=== PATIENT | female | born 1945 | race Caucasian/White ===

== ENCOUNTER → 2019-09-13 09:37 | Outpatient (BNVA) | payer MEDICARE, OTHER, SELFPAY | PROVIDERS: Family Provider Nurse Practitioner; PCP Nurse Practitioner; Visit Provider Nurse Practitioner | DX: E11.65 Type 2 diabetes mellitus with hyperglycemia (principal) | CPT/HCPCS: 80053; 80061; 81000; 83036; 85025 ==

== ENCOUNTER → 2020-02-10 11:19 | Outpatient (BNVA) | payer MEDICARE, OTHER, SELFPAY | PROVIDERS: Family Provider Nurse Practitioner; PCP Nurse Practitioner; Visit Provider Nurse Practitioner Family | DX: N30.00 Acute cystitis without hematuria (principal) | CPT/HCPCS: 81000 ==

== ENCOUNTER → 2020-02-17 10:48 | Outpatient (BNVA) | payer MEDICARE, OTHER, SELFPAY | PROVIDERS: Family Provider Nurse Practitioner; PCP Nurse Practitioner; Visit Provider Nurse Practitioner | DX: E11.65 Type 2 diabetes mellitus with hyperglycemia (principal) | CPT/HCPCS: 80053; 80061; 83036; 84443 ==

== ENCOUNTER → 2020-08-07 14:53 | Outpatient (BNVA) | payer MEDICARE, OTHER, SELFPAY | PROVIDERS: Family Provider Nurse Practitioner; PCP Nurse Practitioner; Visit Provider Nurse Practitioner | DX: E11.65 Type 2 diabetes mellitus with hyperglycemia (principal) | CPT/HCPCS: 81000 ==

== ENCOUNTER → 2020-08-17 10:01 | Outpatient (BNVA) | payer MEDICARE, OTHER, SELFPAY | PROVIDERS: Family Provider Nurse Practitioner; PCP Nurse Practitioner; Visit Provider Nurse Practitioner | DX: I10 Essential (primary) hypertension (principal); E11.65 Type 2 diabetes mellitus with hyperglycemia; R00.0 Tachycardia, unspecified | CPT/HCPCS: 80053; 80061; 83036; 84443 ==

== ENCOUNTER → 2020-08-18 10:05 | Outpatient (BNVA) | payer MEDICARE, OTHER, SELFPAY | PROVIDERS: Family Provider Nurse Practitioner; PCP Nurse Practitioner; Visit Provider Nurse Practitioner | DX: E11.65 Type 2 diabetes mellitus with hyperglycemia (principal) | CPT/HCPCS: 82043 ==

== ENCOUNTER → 2020-12-11 11:36 | Outpatient (BNVA) | payer MEDICARE, OTHER, SELFPAY | PROVIDERS: Family Provider Nurse Practitioner; PCP Nurse Practitioner; Visit Provider Nurse Practitioner | DX: E11.65 Type 2 diabetes mellitus with hyperglycemia (principal); J45.909 Unspecified asthma, uncomplicated; K21.9 Gastro-esophageal reflux disease without esophagitis | CPT/HCPCS: 80053; 80061; 82043; 83036 ==

== ENCOUNTER 2021-02-04 08:55 | Outpatient (CLI) | payer MEDICARE, OTHER, SELFPAY ==
[2021-02-04 09:51] VITALS: BMI 35.2
--- NOTE | 2021-02-04 09:56 | NMCV_ITS ---
NM curtis perf SPECT r/s* [id number] Haily Sam Age: 75 Gender: F : 1945 Exam Date: 02/04/2021 11:05 Ordering Phys: Arnold Wagner MD ([email or web address]) Technologist: CYNTHIA Pryor Exam Location: [facility] [place] Indications: SHORTNESS OF BREATH STRESS TEST Please [facility] separate [facility] for [facility] IMAGE PROTOCOL Rest/Stress 1 Lexiscan Day Radiopharmaceutical Dose (mCi) Administration Site Administered by Rest: Tc-99m 10.8 IV CYNTHIA Contreras Sestamibi Stress:Tc-99m 32.8 IV CYNTHIA Contreras Sestamibi Rest: 04-Feb-2021 60 Discovery 630 Stress: 04-Feb-2021 30 Discovery 630 0.4mg Lexiscan. Supine position only as patient was unable to lay prone. SPECT RESULTS Technical Quality: Excellent Raw Data Analysis: Normal Image Corrections: No attenuation or motion correction applied Summed Stress Score: 2 Summed Rest Score: 2 Summed Difference Score: 1 PERFUSION FINDINGS SPECT images demonstrate homogeneous tracer distribution throughout the myocardium. FUNCTIONAL RESULTS (calculated via Gated SPECT) Stress Image LV EF (%): 69 Stress EDV (mL):68 TID: 0.83 Stress ESV (mL):21 Rest Image LV EF (%): 65 FUNCTIONAL FINDINGS: There is normal left ventricular systolic function. IMPRESSIONS Myocardial perfusion imaging is normal. EKG segment will be documented separately. Arnold Wagner MD (Electronically Signed) Final Date: 04 February 2021 18:46 S
--- NOTE | 2021-02-04 09:56 | ECG_ITS ---
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 The perfusion scan will be documented separately. DATA: Baseline heart rate was 79 beats per minute. Baseline blood pressure was 165/91 millimeters of mercury. Target heart rate was 146. Maximum heart rate achieved was 120. which was 82 % of the predicted target heart rate. Maximum blood pressure was 179/109 millimeters of mercury. The reason for ending the test was completion of the protocol. The patient did not experience any symptoms. ELECTROCARDIOGRAM: BASELINE: Sinus rhythm. Normal axis. Incomplete right bundle branch EXERCISE: After Lexiscan injection, no ST-T changes suggestive of ischemic noted. No arrhythmia noted. CONCLUSION: Please note due to baseline abnormality of the EKG specificity and sensitivity of the EKG portion of LexiScan MIBI stress test will be low 1. EKG not suggestive of ischemia 2. Lexiscan injection unremarkable. 3. Perfusion scan will be documented separately. Electronically Signed On 02-04-2021 21:18:29 CDT by ARNOLD WAGNER [id number]
[2021-02-04] MEDS: regadenoson 0.4 Mg/5 ml Syringe IVP (12:13)
[2021-02-04 12:41] VITALS: BP 168/103; PULSE 63
== END 2021-02-04 08:56 | disposition home or self-care (01) ==
LOC: CDL 08:57
PROVIDERS: PCP Nurse Practitioner; Visit Provider Internal Medicine Cardiovascular Disease
DX: R07.9 Chest pain, unspecified (principal); R06.02 Shortness of breath
CPT/HCPCS: 78452; 93017; A9500; J2785

== ENCOUNTER 2021-03-26 08:51 | Outpatient (CLI) | payer MEDICARE, OTHER, SELFPAY ==
--- NOTE | 2021-03-26 09:00 | MM_ITS ---
WS: [id number] BILATERAL DIGITAL SCREENING MAMMOGRAPHY WITH CAD CLINICAL INFORMATION: Z12.31 - Encounter for screening mammogram for malignant ... HISTORY: Screening mammogram. No current complaints. COMPARISON: TECHNIQUE: Bilateral CC and MLO views. FINDINGS: The breasts are composed of heterogeneous fibroglandular density tissue, which can limit the detectio n of small underlying mass lesions. No suspicious mass, asymmetry, calcifications, or architectural d istortion. No evidence of malignancy. Stable punctate and lucent centered calcifications. Coarse clus tered calcifications upper outer right breast have slightly progressed MM/[place] [id number] IMPRESSION: BI-RADS: 2-Benign FOLLOW UP: 1 Year Follow-up Recommend return to annual screening mammography.
== END 2021-03-26 08:52 | disposition home or self-care (01) ==
LOC: RADSHAW 08:57
PROVIDERS: PCP Nurse Practitioner; Visit Provider Nurse Practitioner Family
DX: Z12.31 Encounter for screening mammogram for malignant neoplasm of breast (principal)
CPT/HCPCS: 77067

== ENCOUNTER → 2021-04-19 12:02 | Outpatient (BNVA) | payer MEDICARE, OTHER, SELFPAY | PROVIDERS: PCP Nurse Practitioner; Visit Provider Nurse Practitioner | DX: E11.65 Type 2 diabetes mellitus with hyperglycemia (principal); R19.7 Diarrhea, unspecified | CPT/HCPCS: 80053; 80061; 81000; 83036; 85025; 87493; 87506 ==

== ENCOUNTER → 2021-05-03 09:32 | Outpatient (BNVA) | payer MEDICARE, OTHER, SELFPAY | PROVIDERS: PCP Nurse Practitioner; Visit Provider Nurse Practitioner | DX: D64.9 Anemia, unspecified (principal) | CPT/HCPCS: 85025 ==

== ENCOUNTER → 2021-05-12 13:24 | Outpatient (BNVA) | payer MEDICARE, OTHER, SELFPAY | PROVIDERS: PCP Nurse Practitioner; Visit Provider Nurse Practitioner | DX: D64.9 Anemia, unspecified (principal); E61.1 Iron deficiency | CPT/HCPCS: 82607; 82746; 83550 ==

== ENCOUNTER 2021-07-07 11:13 | Outpatient (CLI) | payer MEDICARE, OTHER, SELFPAY ==
--- NOTE | 2021-07-07 | CT_ITS ---
WS: [id number] CT ABDOMEN AND PELVIS NONCONTRAST HISTORY: RENAL CYST TECHNIQUE: Imaging performed through the abdomen and pelvis. Coronal and sagittal reformats are submi tted. All CT scans at [facility] use at least one of these dose optimization techniques: auto mated exposure control; mA and/or kV adjustment per patient size (includes targeted exams where dose is matched to clinical indication); or iterative reconstruction. DLP: 1056.98 mGycm COMPARISON: 04/15/2019 Lower thorax: Lung bases are clear. Heart is normal size. No effusion. Small hiatal hernia. Liver: Normal size liver. No mass or bile duct dilatation. Gallbladder: Normal gallbladder. Pancreas: Normal size and attenuation. Normal pancreatic duct. No pancreatitis or mass. Spleen: Normal. Adrenal glands: Normal. No mass. Right kidney: Normal size RIGHT kidney. The exophytic cyst noted on the prior examination from the lo wer pole is no longer present. This study is a noncontrast examination therefore subtle enhancing ma sses would not be apparent. The contour of the kidney appears normal. No stone or obstruction. Left kidney: Normal size kidney with no mass or hydronephrosis. Aorta: Normal abdominal aorta, no aneurysm or atherosclerosis. No free fluid, intraperitoneal air or significant lymphadenopathy. GI tract: No GI tract obstruction. There are numerous diverticula in the sigmoid colon without acute diverticulitis. Prior appendectomy. No acute inflammatory process. Abdominal wall: Very small umbilical hernia contains fat only. Pelvis: Small caliber uterus as expected. No adnexal masses. No free fluid or adenopathy. Normal urin brooke bladder. Osseous structures: Unremarkable. CT/CT abdomen pelvis wo con [id number] IMPRESSION: 1. Previously described RIGHT renal cyst is no longer present. 2. No renal obstruction. No renal calcifications. 3. Prior appendectomy. 4. Sigmoid diverticulosis without diverticulitis.
== END 2021-07-07 11:14 | disposition home or self-care (01) ==
PROVIDERS: PCP Nurse Practitioner; Visit Provider Nurse Practitioner
DX: N28.1 Cyst of kidney, acquired (principal); Q42.8 Congenital absence, atresia and stenosis of other parts of large intestine; K57.30 Diverticulosis of large intestine without perforation or abscess without bleeding
CPT/HCPCS: 74176

== ENCOUNTER 2021-09-10 12:16 | Outpatient (CLI) | payer MEDICARE, OTHER, SELFPAY ==
--- NOTE | 2021-09-10 12:30 | USCV_ITS ---
Haily Sam Age: 76 Gender: F : 1945 Exam Date: 09/10/2021 12:44 Ordering Phys: Eunice Sinha Technologist: Exam Location: [facility] [place] Indication: SYNCOPE Risk Factors: Previous Vascular Surgery: Right Brachial BP: / Left Brachial BP: / Right Left Velocity (cm/s) Spectral Plaque Velocity (cm/s) Spectral Plaque Syst/Diast Broadening Syst/Diast Broadening 55.90/ 16.30 Prox CCA 57.20 / 11.80 69.90/ 15.50 Mid CCA 67.70 / 17.70 63.70/ 14.80 Distal CCA 53.00 / 10.30 60.15/ 13.50 Prox ICA 82.00 / 19.70 56.60/ 13.80 Mid ICA 71.40 / 19.60 48.25/ 13.55 Distal ICA 81.60 / 14.90 89.30 ECA 67.95 0.90 ICA/CCA 1.21 Antegrade Vertebral Antegrade 28.00/ 6.60 cm/s 35.90/ 9.40 cm/s Tri Subclavian Tri 84.00 91.40 FINDINGS Intimal thickening was noted in the common carotid artery and at the bifurcations bilaterally No unstable plaques or stenotic lesions Normal Doppler flow velocities and ratios Antegrade flow in the vertebral arteries bilaterally Normal Doppler velocities in the external carotid, vertebral and subclavian arteries well CONCLUSIONS Intimal thickening in the common carotid artery and the bifurcations bilaterally with no evidence of any significant stenosis. No unstable plaques or significant lesions. Dr Candis Louise MD [facility] (Electronically Signed) Final Date: 10 September 2021 18:57 S
== END 2021-09-10 12:17 | disposition home or self-care (01) ==
LOC: RAD 12:23
PROVIDERS: PCP Nurse Practitioner; Visit Provider Nurse Practitioner
DX: G45.9 Transient cerebral ischemic attack, unspecified (principal); R55 Syncope and collapse
CPT/HCPCS: 93880

== ENCOUNTER → 2021-10-13 08:40 | Outpatient (BNVA) | payer MEDICARE, OTHER, SELFPAY | PROVIDERS: PCP Nurse Practitioner; Visit Provider Nurse Practitioner | DX: E11.65 Type 2 diabetes mellitus with hyperglycemia (principal); I10 Essential (primary) hypertension | CPT/HCPCS: 80053; 80061; 83036; 85025 ==

== ENCOUNTER → 2022-01-18 11:07 | Outpatient (BNVA) | payer MEDICARE, OTHER, SELFPAY | PROVIDERS: PCP Nurse Practitioner; Visit Provider Nurse Practitioner Family | DX: M79.642 Pain in left hand (principal); M79.89 Other specified soft tissue disorders | CPT/HCPCS: 73130 ==

== ENCOUNTER 2022-01-19 14:06 | Emergency (ER) | payer MEDICARE, OTHER, SELFPAY ==
--- NOTE | 2022-01-19 14:18 | ED_ITS ---
HPI - General Adult General: Chief complaint: Abdominal Pain Stated complaint: ABD PAIN Time Seen by Provider: 01/19/22 14:09 History of Present Illness: Patient is a 76-year-old female history of prior appendectomy, renal colic, diverticulosis, tubal ligation presenting to the emergency room with sudden onset of lower abdominal pain has been persistent since 12:00. Patient has been she had 3 bites of sandwiches and began having significant lower abdominal pain with radiation from the left side to the right. Patient had 1 episode of diarrhea. Denies any melena hematochezia. Patient denies any nausea/vomiting, fever/chills. No complaints of chest pain, shortness breath, cough, or any sore throat. Patient denies any urinary complaints, vaginal the bleeding or new vaginal discharge. Onset:12pm Duration:2 hrs ago Location:home Severity:moderate Associated symptoms: Deny chest pain, dyspnea, nausea, rash, palpitations or vomiting Review of Systems Const: Denies: fever(s) or chills Eyes: Denies: change in vision ENMT: Denies: mouth pain Card: Denies: chest pain or palpitations Resp: Denies: dyspnea or non-productive cough GI: Reports: abdominal pain and diarrhea; Denies: nausea or vomiting : Denies: dysuria Musc: Denies: extremity pain Skin/Breast: Denies: rash or new lesions Neuro: Denies: weakness in extremities Psych: Reports: other (Normal mood) Moncho/Lymph: Denies: easy bruising PFSH ED PFSH: Medical History Allergy to alpha-gal Asthma Chronic constipation Controlled diabetes mellitus with hyperglycemia, without long-term current use of insulin Diverticulosis Essential hypertension Gastric reflux Renal cyst, right Tachycardia Surgical History History of colonoscopy 2013 History of tubal ligation S/P cataract surgery Family History Other Cancer Diabetes Stroke Denies family history of Bleeding disorder Social History Smoking and tobacco status: former smoker Second hand smoke exposure: No Smoking risk assessment/counseling performed?: No Alcohol intake: never Desire information about alcohol rehabilitation?: No Counseling given: No Desire information about substance/drug rehabilitation?: No Counseling given: No Adopted: No Caregiver/support person: No Lives independently: Yes Household members: spouse Housing: House Marital status: service: No Current occupational status: retired History of recent travel: No Current gender identity: Female Physical Exam Const: COMMON NORMALS: alert HENMT: COMMON NORMALS: atraumatic HEAD & SCALP: atraumatic MOUTH: moist mucous membranes not abnormal Eye: COMMON NORMALS: EOMs intact bilaterally and conjunctivae normal CONJUNCTIVA: Yes conjunctivae normal Neck/C-Spine: COMMON NORMALS: full ROM and supple Resp: COMMON NORMALS: normal respiratory effort and clear to auscultation bilaterally AUSCULTATION: clear to auscultation bilaterally Cardio: COMMON NORMALS: regular rate RATE: regular rate GI: COMMON NORMALS: Soft to palpation PALPATION: Yes Soft to palpation OTHER: +mild b/l lower abd TTP. NO guarding rebound, guarding, rigidity. No CVA tenderness to percussion. Neg Alicea/Neg McBurney's point tenderness, no suprabupic tenderness to palpation. Extremity: COMMON NORMALS: full ROM Neuro: SENSORIUM/ORIENTATION: Yes alert MOTOR EXAM: No Abnormal motor strength present and Other motor observations present (no focal motor deficits) Psych: COMMON NORMALS: speech normal SPEECH: Yes normal speech MOOD & AFFECT: Yes euthymic mood Course Vital Signs: Vital signs: Vital Signs Temperature 97.0 F L 01/19/22 14:19 Pulse Rate 91 01/19/22 18:37 Respiratory Rate 18 01/19/22 14:19 Blood Pressure 159/92 01/19/22 18:37 Pulse Oximetry 96 01/19/22 18:37 Oxygen Delivery Me thod 01/19/22 17:00 MDM - General Adult Medical Decision Making [id number] female with history of renal colic, diverticulosis, prior/appendectomy presenting to the emergency room with complaints of lower abdominal pain for the last 2 hours. Exam, patient is hemodynamically stable with mild tenderness palpation lower quadrant. No guarding or rebound tenderness. Lab work-up showed white count of 15.5. His lab within normal and her CMP also on complete diverticulitis. Patient reports pain improved after pain medication in the emergency room. Patient has not had any episode of emesis. Patient took Augmentin in the emergency room. Patient has been on hold down water and food. At the present time, I have all offered inpatient admission however the patient tells me that she feels good and would like to follow-up outpatient with antibiotics. As patient is well-appearing, will try to have a trial of outpatient antibiotics and have patient come back to the emergency room should she have any nausea/vomiting, fever/chills, worsening pain, or any new concerning complaints Rx augmentin BID for diverticulitis Disposition: Discharge. Patient counseled regarding diagnostic impression, treatment plan. Patient given ED strict return precautions to return for continuation, worsening, or development of new symptoms. Instructed to f/u w/ PCP regarding symptoms today. Patient verbalized understanding. Lab Data : 01/19/22 15:43 01/19/22 15:43 Radiology Impressions Abdomen/Pelvis CT 01/19/22 14:16 IMPRESSION: 1. Findings suspicious for mild acute diverticulitis in the distal descending colon. Laboratory Results WBC 15.5 10^3/uL (4.0-10.0) H 01/19/22 15:43 RBC 4.60 10^6/uL (4.1-5.3) 01/19/22 15:43 Hgb 13.6 g/dL (11.5-15.3) 01/19/22 15:43 Hct 42.3 % (37.0-47.0) 01/19/22 15:43 MCV 92.0 fl (81-99) 01/19/22 15:43 MCH 29.6 pg (28.0-34.0) 01/19/22 15:43 MCHC 32.2 g/dL (30.0-36.0) 01/19/22 15:43 RDW 13.1 % (12.1-15.1) 01/19/22 15:43 Plt Count 181 10^3/cmm (130-400) 01/19/22 15:43 MPV 11.5 fL (7.4-10.4) H 01/19/22 15:43 Neut % (Auto) 84.6 % 01/19/22 15:43 Lymph % (Auto) 7.2 % 01/19/22 15:43 Meade % (Auto) 6.8 % 01/19/22 15:43 Eos % (Auto) 0.5 % 01/19/22 15:43 Baso % (Auto) 0.3 % 01/19/22 15:43 Neut # (Auto) 13.13 10^3/uL (1.8-7.7) H 01/19/22 15:43 Lymph # (Auto) 1.1 10^3/uL (0.8-4.8) 01/19/22 15:43 Meade # (Auto) 1.1 10^3/uL (0.2-0.9) H 01/19/22 15:43 Eos # (Auto) 0.1 10^3/uL (0.0-0.8) 01/19/22 15:43 Baso # (Auto) 0.0 10^3/uL (0.0-0.1) 01/19/22 15:43 Nucleated RBC % (auto) 0 % 01/19/22 15:43 Nucleated RBCs # 0.0 /100WBC 01/19/22 15:43 Sodium 142 mmol/L (136-145) 01/19/22 15:43 Potassium 3.7 mmol/L (3.5-5.1) 01/19/22 15:43 Chloride 107 mmol/L (98-107) 01/19/22 15:43 Carbon Dioxide 26 mmol/L (22-29) 01/19/22 15:43 Anion Gap 12.7 (5-19) 01/19/22 15:43 BUN 15 mg/dL (8-23) 01/19/22 15:43 Creatinine 0.9 mg/dL (0.5-0.9) 01/19/22 15:43 GFR Calculation Not Reportable 01/19/22 15:43 Glucose 116 mg/dL (65-115) H 01/19/22 15:43 Calculated Osmolality 296 mOsm/kg (285-295) H 01/19/22 15:43 Lactate 1.2 mmol/L (0.5-2.2) 01/19/22 15:43 Calcium 8.4 mg/dL (8.5-10.5) L 01/19/22 15:43 Total Bilirubin 0.4 mg/dL (0.15-1.2) 01/19/22 15:43 AST 24 U/L (0-32) 01/19/22 15:43 ALT 25 U/L (0-33) 01/19/22 15:43 Alkaline Phosphatase 70 IU/L (35-105) 01/19/22 15:43 Total Protein 6.5 g/dL (6.6-8.7) L 01/19/22 15:43 Albumin 3.7 g/dL (3.5-5.2) 01/19/22 15:43 Globulin 2.8 g/dL (1.3-4.6) 01/19/22 15:43 Lipase 26 U/L (13-60) 01/19/22 15:43 Urine Color Cancelled 01/19/22 17:40 Urine Color Yellow (Yellow) 01/19/22 17:40 Urine Appearance Cancelled 01/19/22 17:40 Urine Appearance Clear (CLEAR) 01/19/22 17:40 Urine pH 5 (5-7) 01/19/22 17:40 Urine pH Cancelled 01/19/22 17:40 Ur Specific [place] 1.015 (1.005-1.030) 01/19/22 17:40 Ur Specific [place] Cancelled 01/19/22 17:40 Urine Protein Cancelled 01/19/22 17:40 Urine Protein Neg (Negative) 01/19/22 17:40 Urine Glucose (UA) Cancelled 01/19/22 17:40 Urine Glucose (UA) Norm (Normal) 01/19/22 17:40 Urine Ketones Cancelled 01/19/22 17:40 Urine Ketones Negative (Negative) 01/19/22 17:40 Urine Blood Cancelled 01/19/22 17:40 Urine Blood Neg (Negative) 01/19/22 17:40 Urine Nitrate Cancelled 01/19/22 17:40 Urine Nitrate Negative (Negative) 01/19/22 17:40 Urine Bilirubin Cancelled 01/19/22 17:40 Urine Bilirubin Neg (Negative) 01/19/22 17:40 Prot Sulfosalicylic Acd Cancelled 01/19/22 17:40 Urine Urobilinogen Cancelled 01/19/22 17:40 Urine Urobilinogen Norm mg/dL (Negative) 01/19/22 17:40 Ur Leukocyte Esterase Cancelled 01/19/22 17:40 Ur Leukocyte Esterase Negative (Negative) 01/19/22 17:40 Imaging Data Other Imaging: Radiologist's impression: [address] [place] [address] CT Scan Report Signed Patient: Haily Sam Unit #: [id number] : 1945 Age/Sex: 76 / F ADM Date: 01/19/22 Loc: ER Room/Bed: Attending Dr: Ordering Provider/Ordering MD: Alfredo Craft MD Date of Service: 01/19/22 Procedure(s): CT abdomen pelvis w con* [id number] Accession Number(s): [id number] Report Number: [id number] PROCEDURE INFORMATION: Exam: CT Abdomen And Pelvis With Contrast Exam date and time: 01/19/2022 4:25 PM Age: 76 years old Clinical indication: Abdominal pain; Localized; Lower; Prior surgery; Surgery date: 6+ months; Surgery type: Tubal, appy; Additional info: Abd pain TECHNIQUE: Imaging protocol: Computed tomography of the abdomen and pelvis with contrast. Radiation optimization: All CT scans at this facility use at least one of these dose optimization techniques: automated exposure control; mA and/or kV adjustment per patient size (includes targeted exams where dose is matched to clinical indication); or iterative reconstruction. Contrast material: OMNI 350; Contrast volume: 95 ml; Contrast route: INTRAVENOUS (IV);? COMPARISON: CT abdomen pelvis wo con [id number] 07/07/2021 12:08 PM RADIATION DOSE METRICS: Total DLP (mGy-cm): 979.28 FINDINGS: Liver: Normal. No mass. Gallbladder and bile ducts: Normal. No calcified stones. No ductal dilation. Pancreas: Normal. No ductal dilation. Spleen: Normal. No splenomegaly. Adrenal glands: Normal. No mass. Kidneys and ureters: Normal. No hydronephrosis. Stomach and bowel: Diverticulosis of the descending and sigmoid colon. There is subtle fat stranding in the region of the distal descending colon, suspicious for mild acute diverticulitis. The stomach and small bowel are unremarkable. No obstruction. Appendix: The appendix is not visualized. No secondary signs of appendicitis. Intraperitoneal space: Unremarkable. No free air. No significant fluid collection. Vasculature: Unremarkable. No abdominal aortic aneurysm. Lymph nodes: Unremarkable. No enlarged lymph nodes. Urinary bladder: Unremarkable as visualized. Reproductive: Unremarkable as visualized. Bones/joints: Mild degenerative changes of the spine. No fracture identified. Soft tissues: Small fat containing umbilical hernia. CT/CT abdomen pelvis w con* [id number] IMPRESSION: 1. Findings suspicious for mild acute diverticulitis in the distal descending colon. ? Dictated By: Ovidio Swain Signed By: Ovidio Swain Signed Date/Time: 01/19/22 1740 DD/ 1625 Discharge Plan Discharge Patient Disposition: Home Clinical Impression: Abdominal pain, Diverticulitis Condition: Stable Prescriptions: New amoxicillin-pot clavulanate 875-125 mg tablet 1 tab PO BID 10 Days Qty: 20 0RF No Action Xarelto 20 mg tablet 20 mg PO DAILY Qty: 90 3RF Rx Instructions: must administer with evening meal verapamil 180 mg tablet extended release 180 mg PO DAILY Qty: 90 3RF budesonide 0.5 mg/2 mL suspension for nebulization 0.5 mg INHALATION BID Qty: 360 0RF albuterol sulfate [ProAir HFA] 90 mcg/actuation HFA aerosol inhaler 2 puff inhalation Q6H PRN (Reason: shortness of breath or wheezing) Qty: 25.5 5RF atorvastatin 10 mg tablet 10 mg PO DAILY Qty: 90 1RF ipratropium-albuterol 0.5 mg-3 mg(2.5 mg base)/3 mL solution for nebulization 3 ml INHALATION BID Qty: 360 1RF pantoprazole 40 mg tablet,delayed release (DR/EC) 40 mg PO DAILY 90 Days Qty: 90 1RF Januvia 100 mg tablet 100 mg PO DAILY Qty: 90 1RF sucralfate [Carafate] 1 gram tablet 1 g PO TID 90 Days Qty: 270 1RF aspirin 81 mg tablet,delayed release (DR/EC) 81 mg PO DAILY epinephrine [EpiPen 2-Vidal] 0.3 mg/0.3 mL auto-injector 0.3 mg IM Q10M PRN (Reason: anaphylaxis) Qty: 2 0RF Rx Instructions: for 2 doses nitroglycerin [Nitrostat] 0.4 mg tablet, sublingual 0.4 mg SUBLINGUAL Q5M PRN (Reason: chest pain) 30 Days Qty: 25 6RF Rx Instructions: until response; do not exceed 3 doses per episode isosorbide mononitrate 30 mg tablet extended release 24 hr 15 mg PO BID Qty: 90 3RF metoprolol succinate 25 mg tablet extended release 24 hr 25 mg PO DAILY Qty: 90 3RF Discharge Orders: Discharge ED (Routine); Ordered 01/19/22 Ordered By: Alfredo Craft Referrals: Samir Kaufman, COMMUNITY RELATIONS SPECIALIST-C [Primary Care Provider] - Discharge Diet: Advance as tolerated Discharge Activity: Increase activity as tolerated Patient Instructions: Diverticulitis (ED) Activity Restrictions/Additional Instructions: Please come back if you have any worsening abdominal pain, fever or chills, nausea or vomiting, diarrhea, blood in the stool, inability hold down liquid or solids, or any new concerning complaints. Please take your antibiotics as instructed. Watch out for signs of skin changes/redness, mouth redeness or swelling, nausea/vomiting, diarrhea, blood in the urine or any new or concering complaints. Coding Level of Care Code ED School Business Administrator for Darriang Fwd Exam Comprehensive
[2022-01-19 14:19] VITALS: BP 157/91; PULSE 82; RESP 18; TEMP 36.1; O2SAT 95; BMI 36.8
[2022-01-19 14:42] VITALS: BP 141/78; PULSE 80; O2SAT 93
[2022-01-19] MEDS: sodium chloride 0.9% 1,000 ML 999 ML IV (15:00)
[2022-01-19 15:12] VITALS: BP 141/78; PULSE 80; O2SAT 94
[2022-01-19 15:59] LABS: Basophils % 0.3 %; Eosinophils # 0.1 10^3/uL (0.0-0.8); Eosinophils % 0.5 %; Hematocrit 42.3 % (37.0-47.0); Hemoglobin 13.6 g/dL (11.5-15.3); Lymphocytes # 1.1 10^3/uL (0.8-4.8); Lymphocytes % 7.2 %; Mean Corpuscular HGB Conc 32.2 g/dL (30.0-36.0); Mean Corpuscular Hemoglobin 29.6 pg (28.0-34.0); Mean Platelet Volume 11.5 fL (7.4-10.4); Monocytes # 1.1 10^3/uL (0.2-0.9); Monocytes % 6.8 %; Neutrophils # 13.13 10^3/uL (1.8-7.7); Neutrophils % 84.6 %; Nucleated Red Blood Cells % 0 %; Platelet Count 181 10^3/cmm (130-400); Red Cell Distribution Width 13.1 % (12.1-15.1); White Blood Count 15.5 10^3/uL (4.0-10.0)
[2022-01-19 16:00] VITALS: BP 155/85; PULSE 78; O2SAT 94
[2022-01-19 16:10] LABS: Lactate (Lactic Acid level) 1.2 mmol/L (0.5-2.2)
[2022-01-19 16:19] LABS: Alanine Aminotransferase 25 U/L (0-33); Albumin Level 3.7 g/dL (3.5-5.2); Alkaline Phosphatase 70 IU/L (35-105); Anion Gap 12.7 (5-19); Aspartate Amino Transferase 24 U/L (0-32); Blood Urea Nitrogen 15 mg/dL (8-23); Calcium 8.4 mg/dL (8.5-10.5); Carbon Dioxide 26 mmol/L (22-29); Chloride 107 mmol/L (98-107); Globulin 2.8 g/dL (1.3-4.6); Glucose 116 mg/dL (65-115); Lipase 26 U/L (13-60); Osmolality Calculated 296 mOsm/kg (285-295); Potassium 3.7 mmol/L (3.5-5.1); Sodium 142 mmol/L (136-145); Total Bilirubin 0.4 mg/dL (0.15-1.2); Total Protein 6.5 g/dL (6.6-8.7)
[2022-01-19] MEDS: iohexol 350 mg/mL 100 mL Btl 95 ML IV (16:41)
[2022-01-19 17:00] VITALS: BP 125/66; PULSE 88; O2SAT 97
[2022-01-19 17:50] LABS: Add Urine Microscopic? NO; Charge for UA Resulting for Rev
[2022-01-19 17:53] LABS: Bilirubin Urine Neg (Negative); Blood Urine Neg (Negative); Glucose Urine UA Norm (Normal); Ketones Urine Negative (Negative); Leukocyte Esterase Urine Negative (Negative); Nitrate Urine Negative (Negative); Protein Urine Neg (Negative); Specific Gravity, Urine 1.015 (1.005-1.030); Urine Appearance Clear (CLEAR); Urine Color Yellow (Yellow); Urobilinogen Urine Norm (Negative); pH Urine 5 (5-7)
[2022-01-19] MEDS: amoxicillin-clav 875-125 mg Tablet 1 TAB PO (18:13)
[2022-01-19 18:37] VITALS: BP 159/92; PULSE 91; O2SAT 96
== END 2022-01-19 18:38 | disposition home or self-care (01) ==
PROVIDERS: Emergency Provider Emergency Medicine; PCP Nurse Practitioner
DX: K57.92 Diverticulitis of intestine, part unspecified, without perforation or abscess without bleeding (principal); Z79.82 Long term (current) use of aspirin; E11.9 Type 2 diabetes mellitus without complications; I10 Essential (primary) hypertension; Z87.891 Personal history of nicotine dependence
CPT/HCPCS: 36415; 74177; 80053; 81003; 83605; 83690; 85025; 96360; 99285; J7030; Q9967

== ENCOUNTER → 2022-02-02 14:54 | Outpatient (BNVA) | payer MEDICARE, OTHER, SELFPAY | PROVIDERS: PCP Nurse Practitioner; Visit Provider Internal Medicine Cardiovascular Disease | DX: R07.2 Precordial pain (principal); I10 Essential (primary) hypertension; R00.0 Tachycardia, unspecified; K22.70 Barrett's esophagus without dysplasia; Z86.73 Personal history of transient ischemic attack (TIA), and cerebral infarction without residual deficits; K21.9 Gastro-esophageal reflux disease without esophagitis; E11.65 Type 2 diabetes mellitus with hyperglycemia; Z79.84 Long term (current) use of oral hypoglycemic drugs; Z87.891 Personal history of nicotine dependence | CPT/HCPCS: 99214 ==

== ENCOUNTER → 2022-03-31 09:56 | Outpatient (BNVA) | payer MEDICARE, OTHER, SELFPAY | PROVIDERS: PCP Nurse Practitioner; Visit Provider Nurse Practitioner | DX: E11.65 Type 2 diabetes mellitus with hyperglycemia (principal); I10 Essential (primary) hypertension | CPT/HCPCS: 80053; 80061; 83036; 85025 ==

== ENCOUNTER → 2022-08-15 10:07 | Outpatient (BNVA) | payer MEDICARE, OTHER, SELFPAY | PROVIDERS: PCP Nurse Practitioner; Visit Provider Nurse Practitioner Family | DX: I10 Essential (primary) hypertension (principal); Z87.891 Personal history of nicotine dependence | CPT/HCPCS: 99213 ==

== ENCOUNTER → 2022-08-17 16:19 | Outpatient (BNVA) | payer MEDICARE, OTHER, SELFPAY | PROVIDERS: PCP Nurse Practitioner; Visit Provider Nurse Practitioner Family | DX: R35.0 Frequency of micturition (principal) | CPT/HCPCS: 81000 ==

== ENCOUNTER → 2022-10-03 08:59 | Outpatient (BNVA) | payer MEDICARE, OTHER, SELFPAY | PROVIDERS: PCP Nurse Practitioner; Visit Provider Nurse Practitioner | DX: E11.65 Type 2 diabetes mellitus with hyperglycemia (principal) | CPT/HCPCS: 80053; 80061; 82043; 83036; 84443; 85025 ==

== ENCOUNTER 2022-10-05 12:26 | Outpatient (CLI) | payer MEDICARE, OTHER, SELFPAY ==
--- NOTE | 2022-10-05 12:30 | CT_ITS ---
WS: [id number] LDCT LUNG CANCER SCREENING TECHNIQUE: Noncontrast CT of the chest with coronal and sagittal reformatted images. CLINICAL INFORMATION: Z87.891 - Personal history of nicotine dependence COMPARISON: None. DLP: 112.62 mGy.cm DIvol: Mean CTDIvol: 2.80 (mGy) All CT scans at [facility] use at least one of these dose optimization techniques: automat ed exposure control; mA and/or kV adjustment per patient size (includes targeted exams where dose is matched to clinical indication); or iterative reconstruction. FINDINGS: Normal caliber thoracic aorta. No mediastinal or hilar lymphadenopathy. No focal pneumonia or pleural fluid. Subsegmental atelectasis LEFT upper lobe. Slight hazy opacities in the LEFT upper lobe likely inflammatory. Tiny noncalcified nodule RIGHT upper lobe medially. Aortic calcification. Coronary calcification. Adrenal glands are normal. Small esophageal hiatal hernia. No axillary lymphadenopathy. Mild thoracic curve. Moderate thoracic kyphosis. Hypertrophic changes thoracic spine. CT/CT lung screening [id number] IMPRESSION: LUNG-RADS: 2-Benign Appearance or Behavior FOLLOW UP: 12 Month: Continue annual screening with LDCT
== END 2022-10-05 12:27 | disposition home or self-care (01) ==
LOC: RAD 12:27
PROVIDERS: PCP Nurse Practitioner; Visit Provider Nurse Practitioner
DX: Z12.2 Encounter for screening for malignant neoplasm of respiratory organs (principal); Z87.891 Personal history of nicotine dependence
CPT/HCPCS: 71271

== ENCOUNTER → 2022-10-07 12:43 | Outpatient (BNVA) | payer MEDICARE, OTHER, SELFPAY | PROVIDERS: PCP Nurse Practitioner; Visit Provider Nurse Practitioner | DX: N39.0 Urinary tract infection, site not specified (principal) | CPT/HCPCS: 81003; 87077; 87086; 87184 ==

== ENCOUNTER → 2022-10-12 14:15 | Outpatient (BNVA) | payer MEDICARE, OTHER, SELFPAY | PROVIDERS: PCP Nurse Practitioner; Referring Provider Nurse Practitioner; Visit Provider Dermatology | DX: L82.1 Other seborrheic keratosis (principal); L72.0 Epidermal cyst; L81.4 Other melanin hyperpigmentation; D18.01 Hemangioma of skin and subcutaneous tissue | CPT/HCPCS: 10060; 99203 ==

== ENCOUNTER 2022-10-26 06:22 | Emergency (ER) | payer MEDICARE, OTHER, SELFPAY ==
[2022-10-26 06:25] VITALS: BP 177/101; PULSE 86; RESP 20; TEMP 36.6; O2SAT 94; BMI 37.4
--- NOTE | 2022-10-26 06:28 | ECG_ITS ---
[facility] Test Date: 2022-10-26 Pat Name: Haily Sam Department: Room: Gender: Female Teaching Young: : 1945 Requested By: eBnny Jenkins Order Number: [id number] Wu MD: Ming Mcconnell M.D. Measurements Intervals [place] Rate: 76 P: -3 MS: 170 QRS: 28 QRSD: 122 T: -15 QT: 371 QTc: 420 Interpretive Statements SINUS RHYTHM WITH OCCASIONAL VENTRICULAR PREMATURE COMPLEXES RIGHT BUNDLE BRANCH BLOCK [120+ ms QRS DURATION, UPRIGHT V1, 40+ ms S IN I/aVL/V4/V5/V6] Compared to ECG 12/14/2018 07:39:26 Ventricular premature complex(es) now present Right bundle-branch block now present Myocardial infarct finding no longer present Electronically Signed On 10-26-2022 14:18:52 CDT by iMng Mcconnell M.D. [id number]
--- NOTE | 2022-10-26 06:30 | XRR_ITS ---
PROCEDURE INFORMATION: Exam: XR Chest Exam date and time: 10/26/2022 7:24 AM Age: 77 years old Clinical indication: Pain; Angina pectoris; Additional info: Chest pain TECHNIQUE: Imaging protocol: Radiologic exam of the chest. Views: 1 view. COMPARISON: CT lung screening [id number] 10/05/2022 12:43 PM FINDINGS: Lungs: There are prominent interstitial markings and ground-glass opacity in the lower lungs bilaterally. There is coarse linear opacity in the right lung base. Pleural spaces: There is no pleural effusion or pneumothorax. Heart/Mediastinum: Cardiomediastinal contours are unremarkable. Bones/joints: Bones are unremarkable. XR/XR chest 1V portable [id number] IMPRESSION: Mild nonspecific opacity in the lower lungs bilaterally. Possible atelectasis, atypical infection or interstitial edema.
--- NOTE | 2022-10-26 06:33 | W.ED.CHESTPA ---
HPI - Chest Pain General: Chief Complaint: Chest Pain Stated Complaint: chest pain Time Seen by Provider: 10/26/22 06:23 History of Present Illness: 77-year-old female presents emergency department chief complaint of having an episode of chest pain about 2 hours ago when she got up to use the restroom. In which required to take 2 of her nitroglycerin tablets. Patient reports she gets episodes like this and frequent last time use was in May patient does not recall any known history of any underlying cardiac disease or prior history of stents but she reports that she is prescribed her nitro's for her chest discomfort. The patient does have a known history of high blood pressure. She reports during the episode of chest pain that was severe in the midsternal region with no radiation reports no palpitations or shortness of breath associated with it patient reports she is currently chest pain-free over the last 1 hour. Patient presents to the ER for further assessment management she does report she been recently treated for a urinary tract infection, reports no other associated symptoms. Associated symptoms: Deny abdominal pain, dyspnea, fever(s), nausea, palpitations, syncope or vomiting Review of Systems General: Reports: 10 or more systems reviewed and unremarkable except in HPI and below Const: Denies: fever(s), chills, fatigue or malaise Eyes: Denies: change in vision or blurry vision Card: Reports: chest pain; Denies: palpitations, irregular heart rhythm, lightheadedness, syncope or pre-syncope Resp: Denies: dyspnea or productive cough GI: Denies: abdominal pain, nausea or vomiting : Denies: flank pain Musc: Denies: extremity pain or extremity swelling Skin/Breast: Denies: rash or pruritus Neuro: Denies: headache(s) Psych: Denies: anxiety or depression Moncho/Lymph: Denies: easy bleeding All/Imm: Denies: urticaria, throat swelling or facial swelling PFSH ED PFSH: Medical History Allergy to alpha-gal Asthma Chronic constipation Controlled diabetes mellitus with hyperglycemia, without long-term current use of insulin Diverticulosis Essential hypertension Gastric reflux Renal cyst, right Tachycardia Surgical History History of colonoscopy 2012 History of tubal ligation S/P cataract surgery Family History Other Cancer Diabetes Stroke Denies family history of Bleeding disorder Social History Smoking and tobacco status: former smoker Second hand smoke exposure: No Smoking risk assessment/counseling performed?: No Alcohol intake: never Desire information about alcohol rehabilitation?: No Counseling given: No Substance/Drug Use: never Desire information about substance/drug rehabilitation?: No Counseling given: No Adopted: No Caregiver/support person: No Lives independently: Yes Household members: spouse Housing: House Marital status: service: No Current occupational status: retired Do you think of yourself as: Straight/Heterosexual Current gender identity: Female Physical Exam Narrative: EXAM NARRATIVE: Patient appears nontoxic appears in no obvious acute distress with no current complaints. Const: COMMON NORMALS: no acute distress, patient oriented x3 and healthy appearing HENMT: COMMON NORMALS: normocephalic and atraumatic HEAD & SCALP: normocephalic and atraumatic Eye: COMMON NORMALS: Equal, round and reactive pupils present and EOMs intact bilaterally PUPIL: Yes Equal, round and reactive pupils present Neck/C-Spine: COMMON NORMALS: full ROM, supple and no JVD Lymph: LYMPHATIC: no lymphadenopathy noted Chest: COMMONS NORMALS: normal inspection of the chest and normal palpation of entire chest wall Resp: COMMON NORMALS: normal respiratory effort, No retractions and clear to auscultation bilaterally EFFORT & INSPECTION: Yes able to speak in complete sentences and Yes symmetric chest movement AUSCULTATION: clear to auscultation bilaterally Cardio: COMMON NORMALS: no JVD, regular rate and regular rhythm RATE: regular rate RHYTHM: regular rhythm GI: COMMON NORMALS: Normal to inspection, nondistended, normoactive bowel sounds present, Soft to palpation and non-tender INSPECTION: Yes normal to inspection PALPATION: Yes Soft to palpation : COMMON NORMALS: Yes no CVA tenderness BLADDER/KIDNEY EXAM: Yes no CVA tenderness Back/Pelvis: COMMON NORMALS: no CVA tenderness Extremity: COMMON NORMALS: normal to inspection and full ROM Neuro: COMMON NORMALS: patient oriented x3, CN's II-XII intact bilaterally, moves all extremities and no focal motor deficits Psych: COMMON NORMALS: mental status grossly normal, Normal thought process present, cooperative and normal affect THOUGHT PROCESS: Normal thought process present Skin: COMMON NORMALS: no rashes or lesions noted GENERAL SKIN EXAM: no rashes or lesions noted Course Vital Signs: Vital signs: Vital Signs Temperature 97.8 F 10/26/22 06:25 Pulse Rate 67 10/26/22 10:30 Respiratory Rate 17 10/26/22 07:58 Blood Pressure 117/80 10/26/22 10:30 Pulse Oximetry 93 10/26/22 10:30 Oxygen Delivery Me thod Room Air 10/26/22 09:00 MDM - Chest Pain Medical Decision Making Due to patient's symptoms and condition basic lab work imaging will be obtained we will continue to follow patient currently is asymptomatic at this time. Patient's initial labs including for his cardiac troponin came back unremarkable. We will continue to follow with 2-hour troponin. Also chest x-ray is unremarkable. Patient currently asymptomatic anticipate discharge home pending 2-hour troponin. 2-hour troponin came back unremarkable patient remains asymptomatic throughout her time emergency department. No obvious PE appreciated on her CTA patient is absolutely will be discharged home advised further follow-up with primary care in 2 to 3 days which he was advised to return the interim if any of her symptoms persist or worse. Lab Data 10/26/22 06:32 10/26/22 06:32 Radiology Impressions Chest X-Ray 10/26/22 06:30 IMPRESSION: Mild nonspecific opacity in the lower lungs bilaterally. Possible atelectasis, atypical infection or interstitial edema. Chest CTA 10/26/22 08:40 IMPRESSION: 1. No pulmonary embolism. 2. 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 Findings have been present since 09/05/2018. Differential diagnosis: Constrictive bronchiolitis, severe reactive airways disease, or less likely chronic pulmonary thromboembolic disease. There is no other sign of chronic thromboembolism. 3. Hepatic steatosis. 4. Incidental findings above. Laboratory Results WBC 7.1 10^3/uL (4.0-10.0) 10/26/22 06:32 RBC 5.21 10^6/uL (4.1-5.3) 10/26/22 06:32 Hgb 15.1 g/dL (11.5-15.3) 10/26/22 06:32 Hct 47.5 % (37.0-47.0) H 10/26/22 06:32 MCV 91.2 fl (81-99) 10/26/22 06:32 MCH 29.0 pg (28.0-34.0) 10/26/22 06:32 MCHC 31.8 g/dL (30.0-36.0) 10/26/22 06:32 RDW 13.0 % (12.1-15.1) 10/26/22 06:32 Plt Count 209 10^3/cmm (130-400) 10/26/22 06:32 MPV 11.0 fL (7.4-10.4) H 10/26/22 06:32 Neut % (Auto) 53.2 % 10/26/22 06:32 Lymph % (Auto) 35.0 % 10/26/22 06:32 [place] % (Auto) 7.6 % 10/26/22 06:32 Eos % (Auto) 3.0 % 10/26/22 06:32 Baso % (Auto) 0.8 % 10/26/22 06:32 Neut # (Auto) 3.78 10^3/uL (1.8-7.7) 10/26/22 06:32 Lymph # (Auto) 2.5 10^3/uL (0.8-4.8) 10/26/22 06:32 [place] # (Auto) 0.5 10^3/uL (0.2-0.9) 10/26/22 06:32 Eos # (Auto) 0.2 10^3/uL (0.0-0.8) 10/26/22 06:32 Baso # (Auto) 0.1 10^3/uL (0.0-0.1) 10/26/22 06:32 Nucleated RBC % (auto) 0 % 10/26/22 06:32 Nucleated RBCs # 0.0 /100WBC 10/26/22 06:32 Sodium 136 mmol/L (136-145) 10/26/22 06:32 Potassium 4.1 mmol/L (3.5-5.1) 10/26/22 06:32 Chloride 101 mmol/L (98-107) 10/26/22 06:32 Carbon Dioxide 23 mmol/L (22-29) 10/26/22 06:32 Anion Gap 16.1 (5-19) 10/26/22 06:32 BUN 12 mg/dL (8-23) 10/26/22 06:32 Creatinine 0.8 mg/dL (0.5-0.9) 10/26/22 06:32 GFR Calculation Not Reportable 10/26/22 06:32 Glucose 128 mg/dL (65-115) H 10/26/22 06:32 Calculated Osmolality 283 mOsm/kg (285-295) L 10/26/22 06:32 Calcium 9.5 mg/dL (8.5-10.5) 10/26/22 06:32 Total Bilirubin 0.4 mg/dL (0.15-1.2) 10/26/22 06:32 AST 35 U/L (0-32) H 10/26/22 06:32 ALT 35 U/L (0-33) H 10/26/22 06:32 Alkaline Phosphatase 85 U/L (35-105) 10/26/22 06:32 Troponin T Baseline 6 ng/L (0-10) 10/26/22 06:32 Troponin T 120 Minute 6.00 ng/L (0-10) 10/26/22 08:43 Delta Troponin T 0 ABS# (0-10) 10/26/22 08:43 NT-Pro-B Natriuret Pep 43 pg/mL (0-450) 10/26/22 06:32 Total Protein 7.2 g/dL (6.6-8.7) 10/26/22 06:32 Albumin 4.1 g/dL (3.5-5.2) 10/26/22 06:32 Globulin 3.1 g/dL (1.3-4.6) 10/26/22 06:32 Urine Color Yellow (Yellow) 10/26/22 09:10 Urine Appearance Clear (CLEAR) 10/26/22 09:10 Urine pH 5 (5-7) 10/26/22 09:10 Ur Specific [place] 1.015 (1.005-1.030) 10/26/22 09:10 Urine Protein Neg (Negative) 10/26/22 09:10 Urine Glucose (UA) Norm (Normal) 10/26/22 09:10 Urine Ketones Negative (Negative) 10/26/22 09:10 Urine Blood Neg (Negative) 10/26/22 09:10 Urine Nitrate Negative (Negative) 10/26/22 09:10 Urine Bilirubin Neg (Negative) 10/26/22 09:10 Urine Urobilinogen Neg mg/dL (Negative) 10/26/22 09:10 Ur Leukocyte Esterase Negative (Negative) 10/26/22 09:10 Discharge Plan Discharge Patient Disposition: Home Clinical Impression: Chest pain, Intermittent chest pain Condition: Stable Prescriptions: No Action ipratropium-albuterol 0.5 mg-3 mg(2.5 mg base)/3 mL solution for nebulization 3 ml INHALATION BID PRN (Reason: Shortness Of Breath) metoprolol succinate 25 mg tablet extended release 24 hr 25 mg PO DAILY Qty: 90 3RF isosorbide mononitrate 30 mg tablet extended release 24 hr 15 mg PO .COMPLEX Qty: 135 3RF Rx Instructions: Take 1/2 tab (15mg) po in the morning and 1 tab (30mg) po in the evevning nitroglycerin [Nitrostat] 0.4 mg tablet, sublingual 0.4 mg SUBLINGUAL Q5M PRN (Reason: chest pain) 30 Days Qty: 25 6RF Rx Instructions: until response; do not exceed 3 doses per episode atorvastatin 10 mg tablet 10 mg PO DAILY Qty: 90 3RF (DME) diabetic shoes 1 pair to fit See Rx Instructions .Route .MEDSUPPLY Qty: 1 0RF Rx Instructions: As directed epinephrine [EpiPen 2-Vidal] 0.3 mg/0.3 mL auto-injector 0.3 mg IM Q10M PRN (Reason: anaphylaxis) Qty: 2 0RF Rx Instructions: for 2 doses albuterol sulfate [ProAir HFA] 90 mcg/actuation HFA aerosol inhaler 2 puff inhalation Q6H PRN (Reason: shortness of breath or wheezing) Qty: 25.5 5RF pantoprazole 40 mg tablet,delayed release (DR/EC) 40 mg PO DAILY 90 Days Qty: 90 1RF sucralfate [Carafate] 1 gram tablet 1 g PO TID 90 Days Qty: 270 1RF magnesium oxide 400 mg magnesium tablet 400 mg PO BID Qty: 180 1RF verapamil 180 mg tablet extended release 180 mg PO DAILY Qty: 90 3RF permethrin [Elimite] 5 % cream 1 applic topical Q14D Qty: 60 0RF Rx Instructions: apply second treatment 14 days after first treatment if live lice remain (not started as of 10/26/22) trazodone 50 mg tablet 50 mg PO BEDTIME PRN (Reason: Sleep) Miller Milk of Magnesia 400 mg/5 mL suspension 15 ml PO BEDTIME budesonide 0.5 mg/2 mL suspension for nebulization 0.5 mg INHALATION DAILY Florastor 250 mg capsule 250 mg PO TID Januvia 100 mg tablet 100 mg PO QAM Xarelto 20 mg tablet 20 mg PO BEDTIME Multivitamins 28 mg iron- 800 mcg Tablet 1 tab PO DAILY Plexus Bio Cleanse 2 cap PO DAILY Plexus Probio 5 1 tab PO DAILY Plexus Xfactor 2 tab PO QAM Singulair 10 mg Tablet 10 mg PO QAM Discharge Orders: Discharge ED (Routine); Ordered 10/26/22 Ordered By: Benny Jenkins Referrals: Michelle Brooks MD [Primary Care Provider] - 1-3 days Discharge Diet: Cardiac Discharge Activity: Increase activity as tolerated Patient Instructions: Chest Pain (ED) Activity Restrictions/Additional Instructions: Please further follow-up with primary care doctor or environmental remediation consultant next 2 to 3 days, continue taking nitroglycerin as prescribed and please return the interim if any of your symptoms persist or worse. Today there is been found to be no injury or damage noted to your heart and with a negative EKG -2-hour troponin. 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
[2022-10-26 06:40] VITALS: BP 139/90; PULSE 72; RESP 26; O2SAT 94
[2022-10-26 06:47] LABS: Basophils # 0.1 10^3/uL (0.0-0.1); Basophils % 0.8 %; Eosinophils # 0.2 10^3/uL (0.0-0.8); Hematocrit 47.5 % (37.0-47.0); Hemoglobin 15.1 g/dL (11.5-15.3); Lymphocytes # 2.5 10^3/uL (0.8-4.8); Mean Corpuscular HGB Conc 31.8 g/dL (30.0-36.0); Mean Corpuscular Volume 91.2 fl (81-99); Monocytes # 0.5 10^3/uL (0.2-0.9); Monocytes % 7.6 %; Neutrophils # 3.78 10^3/uL (1.8-7.7); Neutrophils % 53.2 %; Nucleated Red Blood Cells % 0 %; Platelet Count 209 10^3/cmm (130-400); Red Blood Count 5.21 10^6/uL (4.1-5.3); White Blood Count 7.1 10^3/uL (4.0-10.0)
[2022-10-26] MEDS: aspirin 81 mg Chew Tablet 324 MG PO (07:03)
[2022-10-26] MEDS: sodium chloride 0.9% 500 ML 999 ML IV (07:03)
[2022-10-26 07:09] LABS: Troponin(5th) Baseline 6 ng/L (0-10)
[2022-10-26 07:16] LABS: Alanine Aminotransferase 35 U/L (0-33); Albumin Level 4.1 g/dL (3.5-5.2); Alkaline Phosphatase 85 U/L (35-105); Anion Gap 16.1 (5-19); Aspartate Amino Transferase 35 U/L (0-32); Blood Urea Nitrogen 12 mg/dL (8-23); Calcium 9.5 mg/dL (8.5-10.5); Carbon Dioxide 23 mmol/L (22-29); Chloride 101 mmol/L (98-107); Creatinine Clr Calc Pharmacy 68.3525; Globulin 3.1 g/dL (1.3-4.6); Glucose 128 mg/dL (65-115); NT Pro B Type Natriuretic Pept 43 pg/mL (0-450); Osmolality Calculated 283 mOsm/kg (285-295); Potassium 4.1 mmol/L (3.5-5.1); Sodium 136 mmol/L (136-145); Total Bilirubin 0.4 mg/dL (0.15-1.2); Total Protein 7.2 g/dL (6.6-8.7)
[2022-10-26 07:58] VITALS: BP 130/75; PULSE 65; RESP 17; O2SAT 95
--- NOTE | 2022-10-26 08:40 | CTR_ITS ---
PROCEDURE INFORMATION: Exam: CTA Chest With Contrast Exam date and time: 10/26/2022 8:57 AM Age: 77 years old Clinical indication: Sternal or substernal pain; Additional info: Chest pain TECHNIQUE: Imaging protocol: Computed tomographic angiography of the chest with contrast. 3D rendering (Not supervised by radiologist): MIP and/or 3D reconstructed images were created by the technologist. Radiation optimization: All CT scans at this facility use at least one of these dose optimization techniques: automated exposure control; mA and/or kV adjustment per patient size (includes targeted exams where dose is matched to clinical indication); or iterative reconstruction. Contrast material: OMNI 350; Contrast volume: 100 ml; Contrast route: INTRAVENOUS (IV); REPORTING DATA: Count of CT and Cardiac NM exams in prior 12 months: This patient has received 2 known CTs and 0 known cardiac nuclear medicine studies in the 12 months prior to the current study. COMPARISON: 1. CT abdomen pelvis w con* [id number] 09/05/2018 11:[address] lung screening [id number] 10/05/2022 12:[address] abdomen pelvis w con* [id number] 01/19/2022 4:25 PM RADIATION DOSE METRICS: Total DLP (mGy-cm): 459.57 FINDINGS: Pulmonary arteries: The pulmonary arteries are adequately opacified for evaluation to the segmental level. There is no filling defect to suggest embolism. No pulmonary arterial calcification or enlargement. Aorta: There is mild aortic atherosclerotic disease. Lungs: There is no consolidation. There is severe diffuse mosaic perfusion of the lung parenchyma with relative sparing of the central portions of the lungs. Trachea and central bronchi are unremarkable. There is mild reticular scarring and bronchiectasis in the anterior left upper lobe with decreased opacity in this region compared to 10/05/2022. Pleural spaces: There is no pleural effusion or pneumothorax. Heart: There is mild cardiac enlargement. There is no pericardial effusion. Coronary arteries: There is mild coronary artery calcification. Lymph nodes: There is no mediastinal or hilar lymphadenopathy. Diaphragm: There is a small sliding-type hiatal hernia. Liver: There is diffuse low-attenuation of the liver relative to the spleen consistent with fatty infiltration. Bones/joints: Bones are unremarkable. Soft tissues: The extrathoracic soft tissues are unremarkable. CT/CT angio chest PE protcl [id number] IMPRESSION: 1. No pulmonary embolism. 2. 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 Findings have been present since 09/05/2018. Differential diagnosis: Constrictive bronchiolitis, severe reactive airways disease, or less likely chronic pulmonary thromboembolic disease. There is no other sign of chronic thromboembolism. 3. Hepatic steatosis. 4. Incidental findings above.
--- NOTE | 2022-10-26 08:41 | ECG_ITS ---
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 Measurements Intervals [place] Rate: 66 P: 44 SC: 201 QRS: 17 QRSD: 129 T: 4 QT: 398 QTc: 419 Interpretive Statements SINUS RHYTHM Right bundle branch block Compared to ECG 12/14/2018 07:39:26 Myocardial infarct finding no longer present Electronically Signed On 10-26-2022 14:25:21 CDT by Ming Mcconnell M.D. [email or web address]
[2022-10-26 09:00] VITALS: BP 152/89; PULSE 81; O2SAT 91
[2022-10-26] MEDS: iohexol 350 mg/mL 500 mL Btl (per mL) IV (09:05)
[2022-10-26 09:21] LABS: Add Urine Microscopic? NO; Charge for UA Resulting for Rev
[2022-10-26 09:39] LABS: Bilirubin Urine Neg (Negative); Blood Urine Neg (Negative); Glucose Urine UA Norm (Normal); Ketones Urine Negative (Negative); Leukocyte Esterase Urine Negative (Negative); Nitrate Urine Negative (Negative); Protein Urine Neg (Negative); Specific Gravity, Urine 1.015 (1.005-1.030); Urine Appearance Clear (CLEAR); Urine Color Yellow (Yellow); Urobilinogen Urine Neg (Negative); pH Urine 5 (5-7)
[2022-10-26 09:54] LABS: Troponin 5 2HR Delta 0 ABS# (0-10)
--- NOTE | 2022-10-26 10:23 | PC.PHAR ---
pts has meds by mail -waiting on to fax med list pt couldnt verify all meds without list
[2022-10-26 10:30] VITALS: BP 117/80; PULSE 67; O2SAT 93
== END 2022-10-26 11:39 | disposition home or self-care (01) ==
PROVIDERS: Emergency Provider Emergency Medicine; PCP Internal Medicine Cardiovascular Disease
DX: R07.9 Chest pain, unspecified (principal); E11.9 Type 2 diabetes mellitus without complications; I10 Essential (primary) hypertension; Z87.891 Personal history of nicotine dependence
CPT/HCPCS: 36415; 71045; 71275; 80053; 81003; 83880; 84484; 85025; 93005; 96360; 99285; J7040; Q9967

== ENCOUNTER → 2022-10-31 13:27 | Outpatient (BNVA) | payer MEDICARE, OTHER, SELFPAY | PROVIDERS: PCP Nurse Practitioner; Visit Provider Nurse Practitioner Family | DX: R07.9 Chest pain, unspecified (principal); Z87.891 Personal history of nicotine dependence | CPT/HCPCS: 99213 ==

== ENCOUNTER → 2022-11-15 14:20 | Outpatient (BNVA) | payer MEDICARE, OTHER, SELFPAY | PROVIDERS: PCP Nurse Practitioner; Visit Provider Nurse Practitioner Family | DX: R39.9 Unspecified symptoms and signs involving the genitourinary system (principal); N39.0 Urinary tract infection, site not specified | CPT/HCPCS: 81000; 87077; 87086; 87184 ==

== ENCOUNTER → 2023-01-05 15:48 | Outpatient (BNVA) | payer MEDICARE, OTHER, SELFPAY | PROVIDERS: PCP Nurse Practitioner; Visit Provider Nurse Practitioner Family | DX: N39.0 Urinary tract infection, site not specified (principal) | CPT/HCPCS: 81000; 87077; 87086; 87184 ==

== ENCOUNTER → 2023-01-12 13:35 | Outpatient (BNVA) | payer MEDICARE, OTHER, SELFPAY | PROVIDERS: PCP Nurse Practitioner; Visit Provider Dermatology | DX: L72.0 Epidermal cyst (principal); S10.86XA Insect bite of other specified part of neck, initial encounter; W57.XXXA Bitten or stung by nonvenomous insect and other nonvenomous arthropods, initial encounter; L81.3 Cafe au lait spots; L82.1 Other seborrheic keratosis; L81.4 Other melanin hyperpigmentation | CPT/HCPCS: 99213 ==

== ENCOUNTER → 2023-01-17 09:13 | Outpatient (BNVA) | payer MEDICARE, OTHER, SELFPAY | PROVIDERS: PCP Nurse Practitioner; Visit Provider Nurse Practitioner Family | DX: N39.0 Urinary tract infection, site not specified (principal) | CPT/HCPCS: 81000 ==

== ENCOUNTER → 2023-01-31 10:46 | Outpatient (BNVA) | payer MEDICARE, OTHER, SELFPAY | PROVIDERS: PCP Nurse Practitioner; Visit Provider Nurse Practitioner Family | DX: N39.0 Urinary tract infection, site not specified (principal) | CPT/HCPCS: 81000 ==

== ENCOUNTER 2023-02-05 08:25 | Emergency (ER) | payer MEDICARE, OTHER, SELFPAY ==
[2023-02-05 08:37] VITALS: BP 133/92; PULSE 85; RESP 22; TEMP 37.1; O2SAT 92; BMI 36.7
--- NOTE | 2023-02-05 08:45 | CTR_ITS ---
PROCEDURE INFORMATION: Exam: CT Abdomen And Pelvis Without Contrast Exam date and time: 02/05/2023 9:15 AM Age: 77 years old Clinical indication: Abdominal pain.No history of trauma or recent surgery is provided. TECHNIQUE: Imaging protocol: Computed tomography of the abdomen and pelvis without contrast. 218image(s) are provided. Radiation optimization: All CT scans at this facility use at least one of these dose optimization techniques: automated exposure control; mA and/or kV adjustment per patient size (includes targeted exams where dose is matched to clinical indication); or iterative reconstruction. Other technique: Axial images are available with sagittal and coronal reconstruction views. Automated dose exposure control is utilized. The DLP is 950.07. REPORTING DATA: Count of CT and Cardiac NM exams in prior 12 months: This patient has received 2 known CTs and 0 known cardiac nuclear medicine studies in the 12 months prior to the current study. COMPARISON: CT abdomen pelvis w con* [id number] 01/19/2022 4:25 PM RADIATION DOSE METRICS: Total DLP (mGy-cm): 950.07 FINDINGS: Lungs: No lobar consolidation is appreciated. There is some subsegmental atelectasis versus post inflammatory scarring demonstrated lingula predominant similar. Liver: There is some hepatic steatosis appearance overall. Gallbladder and bile ducts: There appears to be some trace gallbladder sludge. Pancreas: No pancreatic ductal dilatation or calculus is currently appreciated. Spleen: Unremarkable. Adrenal glands: Unremarkable. Kidneys and ureters: No interval radiopaque obstructive calculus or hydronephrosis appreciated. There is some punctate nonobstructive calcification present for example at the left midpole. Stomach and bowel: Some aspects of the colon are undistended. This may also be peristaltic related.There is abundant stool present limiting mucosal detail evaluation.The bowel gas pattern appears nonobstructive. There is a small sliding-type hiatal hernia demonstrated with slight gastroesophageal fold thickening. There is wall thickening with inflammatory stranding indicative of diverticulitis of the sigmoid colon. Appendix: The appendix is not definitively identified for evaluation although no localized fluid collections are currently appreciated. Intraperitoneal space: No free air or abdominal fluid collections are currently appreciated. There is some pelvic level fluid stranding. Vasculature: There is some atherosclerotic changes of the aorta with no saccular aortic aneurysmal dilatation appreciated. There is some slightly ectatic appearance about the splenic arterial distal level similar overall. Lymph nodes: There are subcentimeter predominant para-aortic and mesenteric lymph nodes overall present. Urinary bladder: The bladder is incompletely fluid filled for evaluation which may exagerate the wall thickness. This can also be seen with post inflammation sequela. Reproductive: Unremarkable as visualized. Bones/joints: Osseous alignment is maintained.No interval displaced fracture or dislocation is appreciated.There is slightly decreased bone mineralization overall. There are mild chronic appearing degenerative changes of the hips and lumbar spine. Soft tissues: No radiopaque foreign body or subcutaneous emphysema is appreciated. Other findings: No other significant interval changes are appreciated. CT/CT abdomen pelvis wo con [id number] IMPRESSION: There is inflammatory diverticulitis demonstrated of the sigmoid colon level. No free air or free fluid collections are appreciated.
--- NOTE | 2023-02-05 08:45 | W.ED.ABDPA2 ---
HPI - Abdominal Pain General: Chief Complaint: Abdominal Pain Stated Complaint: rubi kaur Time Seen by Provider: 02/05/23 08:26 Source: patient Mode of arrival: ambulatory History of Present Illness: 77-year-old female who presents to the emergency room with complaint of lower abdominal pain scant flecks of blood and loose mucousy stool overnight. She she has been through 2 courses of recent antibiotics for a bladder infection. She is now complaining of mucousy loose stools with intermittent flecks of blood. She denies any fever sweats or chills no vomiting. MD elicited complaint: abdominal pain Pertinent past history: past UTI Onset (ago): hour(s) Pain Consistency: constant Location: Suprapubic Severity: moderate Quality: cramping Exacerbating factors: nothing Relieving factors: nothing Associated Symptoms: Reports diarrhea, hematochezia and nausea; Denies anorexia, belching, bloating, change in bowel habits, change in stool character, chills, coffee ground emesis, constipation, GI cramping, dyspepsia, dysuria, excessive flatus, fever(s), heartburn, hematuria, hematemesis, fecal incontinence, loose stools, melena, poor appetite, syncope and vomiting Review of Systems Const: Denies: fever(s), chills, fatigue or malaise ENMT: Denies: throat pain, ear or mastoid pain, nasal discharge or nasal congestion Card: Denies: chest pain, palpitations, irregular heart rhythm or syncope Resp: Denies: dyspnea, productive cough or non-productive cough GI: Reports: abdominal pain, nausea, diarrhea and hematochezia; Denies: vomiting, hematemesis, coffee ground emesis, heartburn, constipation, bloating, GI cramping, belching, excessive flatus, fecal incontinence, change in bowel habits, change in stool character or melena : Denies: flank pain, dysuria, urinary frequency, urinary urgency or hematuria Musc: Denies: neck pain or back pain Skin/Breast: Denies: rash or pruritus PFSH ED PFSH: Medical History Allergy to alpha-gal Asthma Chronic constipation Controlled diabetes mellitus with hyperglycemia, without long-term current use of insulin Diverticulosis Essential hypertension Gastric reflux Renal cyst, right Tachycardia Surgical History History of colonoscopy 2013 History of tubal ligation S/P cataract surgery Family History Other Cancer Diabetes Stroke Denies family history of Bleeding disorder Social History Smoking and tobacco status: former smoker Second hand smoke exposure: No Smoking risk assessment/counseling performed?: No Alcohol intake: never Desire information about alcohol rehabilitation?: No Counseling given: No Substance/Drug Use: never Desire information about substance/drug rehabilitation?: No Counseling given: No Adopted: No Caregiver/support person: No Lives independently: Yes Household members: spouse Housing: House Marital status: service: No Current occupational status: retired Do you think of yourself as: Straight/Heterosexual Current gender identity: Female Physical Exam Const: GENERAL APPEARANCE: cooperative and comfortable ORIENTATION/CONSCIOUSNESS: Yes awake, Yes oriented to person, Yes oriented to place and Yes oriented to time HENMT: COMMON NORMALS: normocephalic, atraumatic and hearing grossly normal bilaterally HEAD & SCALP: normocephalic and atraumatic Resp: COMMON NORMALS: normal respiratory effort, No retractions, No use of accessory muscles and clear to auscultation bilaterally AUSCULTATION: clear to auscultation bilaterally Cardio: COMMON NORMALS: regular rate, regular rhythm and No murmurs present (Cardio) RATE: regular rate RHYTHM: regular rhythm GI: COMMON NORMALS: No hepatosplenomegaly present AUSCULTATION: Yes normoactive bowel sounds PALPATION: Yes Tenderness to palpation present (GI) (Moderate suprapubic tenderness), No Guarding due to palpation present (GI) and Yes No hepatosplenomegaly present : COMMON NORMALS: Yes no CVA tenderness BLADDER/KIDNEY EXAM: Yes no CVA tenderness Back/Pelvis: COMMON NORMALS: no CVA tenderness Extremity: COMMON NORMALS: normal to inspection, capillary refill normal, no clubbing, cyanosis or edema, no calf tenderness and no pedal edema Neuro: SENSORIUM/ORIENTATION: Yes oriented to person, Yes oriented to place and Yes oriented to time Skin: COMMON NORMALS: no rashes or lesions noted GENERAL SKIN EXAM: no rashes or lesions noted Course Vital Signs: Vital signs: Vital Signs Temperature 98.7 F 02/05/23 08:37 Pulse Rate 80 02/05/23 10:12 Respiratory Rate 22 H 02/05/23 08:37 Blood Pressure 133/92 02/05/23 10:12 Pulse Oximetry 93 02/05/23 10:12 Oxygen Delivery Me thod Room Air 02/05/23 08:37 MDM - Abdominal Pain Medical Decision Making CT shows acute diverticulitis slight leukocytosis. She has significant allergies that she is taken Augmentin without problems in the past restart Augmentin 875 twice daily for 10 days. C. difficile is pending we will contact her with results return if she has further problems advised patient she may continue to have small flecks of blood in the stool for the next few days. Differential Diagnosis Likely abdominal pain, diverticulitis, gastroenteritis and small bowel obstruction Medical Records I reviewed the patient's medical records. Lab Data I reviewed the patient's lab results. 02/05/23 08:50 02/05/23 08:50 Labs/Radiology: Radiology Impressions Abdomen/Pelvis CT 02/05/23 08:45 IMPRESSION: There is inflammatory diverticulitis demonstrated of the sigmoid colon level. No free air or free fluid collections are appreciated. Laboratory Results WBC 11.8 10^3/uL (4.0-10.0) H 02/05/23 08:50 RBC 5.01 10^6/uL (4.1-5.3) 02/05/23 08:50 Hgb 15.1 g/dL (11.5-15.3) 02/05/23 08:50 Hct 46.2 % (37.0-47.0) 02/05/23 08:50 MCV 92.2 fl (81-99) 02/05/23 08:50 MCH 30.1 pg (28.0-34.0) 02/05/23 08:50 MCHC 32.7 g/dL (30.0-36.0) 02/05/23 08:50 RDW 13.2 % (12.1-15.1) 02/05/23 08:50 Plt Count 182 10^3/cmm (130-400) 02/05/23 08:50 MPV 11.3 fL (7.4-10.4) H 02/05/23 08:50 Neut % (Auto) 71.1 % 02/05/23 08:50 Lymph % (Auto) 18.9 % 02/05/23 08:50 Wolfe % (Auto) 7.8 % 02/05/23 08:50 Eos % (Auto) 1.4 % 02/05/23 08:50 Baso % (Auto) 0.4 % 02/05/23 08:50 Neut # (Auto) 8.36 10^3/uL (1.8-7.7) H 02/05/23 08:50 Lymph # (Auto) 2.2 10^3/uL (0.8-4.8) 02/05/23 08:50 Wolfe # (Auto) 0.9 10^3/uL (0.2-0.9) 02/05/23 08:50 Eos # (Auto) 0.2 10^3/uL (0.0-0.8) 02/05/23 08:50 Baso # (Auto) 0.1 10^3/uL (0.0-0.1) 02/05/23 08:50 Nucleated RBC % (auto) 0 % 02/05/23 08:50 Nucleated RBCs # 0.0 /100WBC 02/05/23 08:50 Sodium 137 mmol/L (136-145) 02/05/23 08:50 Potassium 4.5 mmol/L (3.5-5.1) 02/05/23 08:50 Chloride 99 mmol/L (98-107) 02/05/23 08:50 Carbon Dioxide 27 mmol/L (22-29) 02/05/23 08:50 Anion Gap 15.5 (5-19) 02/05/23 08:50 BUN 13 mg/dL (8-23) 02/05/23 08:50 Creatinine 0.8 mg/dL (0.5-0.9) 02/05/23 08:50 GFR Calculation Not Reportable 02/05/23 08:50 Glucose 154 mg/dL (65-115) H 02/05/23 08:50 Calculated Osmolality 287 mOsm/kg (285-295) 02/05/23 08:50 Calcium 9.2 mg/dL (8.5-10.5) 02/05/23 08:50 Total Bilirubin 0.6 mg/dL (0.15-1.2) 02/05/23 08:50 AST 30 U/L (0-32) 02/05/23 08:50 ALT 33 U/L (0-33) 02/05/23 08:50 Alkaline Phosphatase 88 U/L (35-105) 02/05/23 08:50 Total Protein 7.4 g/dL (6.6-8.7) 02/05/23 08:50 Albumin 4.0 g/dL (3.5-5.2) 02/05/23 08:50 Globulin 3.4 g/dL (1.3-4.6) 02/05/23 08:50 Lipase 27 U/L (13-60) 02/05/23 08:50 Urine Color Yellow (Yellow) 02/05/23 09:38 Urine Appearance Clear (CLEAR) 02/05/23 09:38 Urine pH 6.5 (5-7) 02/05/23 09:38 Ur Specific Echo 1.005 (1.005-1.030) 02/05/23 09:38 Urine Protein Neg (Negative) 02/05/23 09:38 Urine Glucose (UA) Norm (Normal) 02/05/23 09:38 Urine Ketones Negative (Negative) 02/05/23 09:38 Urine Blood Trace (Negative) H 02/05/23 09:38 Urine Nitrate Negative (Negative) 02/05/23 09:38 Urine Bilirubin Neg (Negative) 02/05/23 09:38 Urine Urobilinogen Norm mg/dL (Negative) 02/05/23 09:38 Ur Leukocyte Esterase Negative (Negative) 02/05/23 09:38 Urine RBC Rare /hpf (0-2) 02/05/23 09:38 Urine WBC None /hpf (0-5) 02/05/23 09:38 Ur Squamous Epith Cells None /hpf (0-5) 02/05/23 09:38 Amorphous Sediment Not Reportable 02/05/23 09:38 Urine Bacteria Trace /hpf (NONE) 02/05/23 09:38 Discharge Plan Discharge Patient Disposition: Home Clinical Impression: Diverticulitis Condition: Stable Prescriptions: New amoxicillin-pot clavulanate 875-125 mg tablet 1 tab PO BID Qty: 20 0RF hydrocodone-acetaminophen 5-325 mg tablet 1 tab PO Q6H PRN (Reason: pain) Qty: 7 0RF Discontinued cephalexin 250 mg/5 mL suspension for reconstitution 500 mg PO TID Qty: 200 0RF permethrin [Elimite] 5 % cream 1 applic topical Q14D Qty: 60 0RF Rx Instructions: apply second treatment 14 days after first treatment if live lice remain (not started as of 10/26/22) No Action ipratropium-albuterol 0.5 mg-3 mg(2.5 mg base)/3 mL solution for nebulization 3 ml INHALATION BID PRN (Reason: Shortness Of Breath) isosorbide mononitrate 30 mg tablet extended release 24 hr 15 mg PO .COMPLEX Qty: 135 3RF Rx Instructions: Take 1/2 tab (15mg) po in the morning and 1 tab (30mg) po in the evevning nitroglycerin [Nitrostat] 0.4 mg tablet, sublingual 0.4 mg SUBLINGUAL Q5M PRN (Reason: chest pain) 30 Days Qty: 25 6RF Rx Instructions: until response; do not exceed 3 doses per episode atorvastatin 10 mg tablet 10 mg PO DAILY Qty: 90 3RF (DME) diabetic shoes 1 pair to fit See Rx Instructions .Route .MEDSUPPLY Qty: 1 0RF Rx Instructions: As directed epinephrine [EpiPen 2-Vidal] 0.3 mg/0.3 mL auto-injector 0.3 mg IM Q10M PRN (Reason: anaphylaxis) Qty: 2 0RF Rx Instructions: for 2 doses albuterol sulfate [ProAir HFA] 90 mcg/actuation HFA aerosol inhaler 2 puff inhalation Q6H PRN (Reason: shortness of breath or wheezing) Qty: 25.5 5RF pantoprazole 40 mg tablet,delayed release (DR/EC) 40 mg PO DAILY 90 Days Qty: 90 1RF sucralfate [Carafate] 1 gram tablet 1 g PO TID 90 Days Qty: 270 1RF magnesium oxide 400 mg magnesium tablet 400 mg PO BID Qty: 180 1RF verapamil 180 mg tablet extended release 180 mg PO DAILY Qty: 90 3RF metoprolol succinate 25 mg tablet extended release 24 hr 25 mg PO BID Qty: 90 3RF trazodone 50 mg tablet 50 mg PO BEDTIME PRN (Reason: Sleep) Florastor 250 mg capsule 250 mg PO TID Januvia 100 mg tablet 100 mg PO QAM Xarelto 20 mg tablet 20 mg PO BEDTIME Multivitamins 28 mg iron- 800 mcg Tablet 1 tab PO DAILY Plexus Bio Cleanse 2 cap PO DAILY Plexus Probio 5 1 tab PO DAILY Plexus Xfactor 2 tab PO QAM Singulair 10 mg Tablet 10 mg PO QAM budesonide 0.5 mg/2 mL suspension for nebulization 0.5 mg INHALATION DAILY PRN Paul Milk of Magnesia 400 mg/5 mL suspension 15 ml PO BEDTIME PRN Discharge Orders: Discharge ED (Routine); Ordered 02/05/23 Ordered By: Griffin Trejo Referrals: Samir Kaufman, MINE ENVIRONMENTAL ENGINEER-C [Primary Care Provider] - Discharge Diet: As Directed Discharge Activity: Increase activity as tolerated Patient Instructions: Diverticulitis (ED), Diverticulitis Diet (ED), Opioid Safety, Pain Management Coding Level of Care Code ED Provider Network Analyst for Hannah Renteria
--- NOTE | 2023-02-05 08:50 | ECG_ITS ---
[facility] Test Date: 2023-02-05 Pat Name: Haily Sam Department: Room: Gender: Female Legal Contracts Specialist: : [id number] Requested By: Griffin Gill Order Number: [id number] MD: Ming Mcconnell M.D. Measurements Intervals [place] Rate: 87 P: 31 WI: 174 QRS: -5 QRSD: 134 T: -9 QT: 393 QTc: 473 Interpretive Statements SINUS RHYTHM Right bundle branch block POSSIBLE LATERAL MYOCARDIAL INFARCTION , PROBABLY OLD [30 ms Q WAVE IN I/aVL/V5/V6] Compared to ECG 10/26/2022 08:41:53 Myocardial infarct finding now present Electronically Signed On 02-05-2023 11:32:09 CDT by Ming Mcconnell M.D. [email or web address]
[2023-02-05 09:06] LABS: Basophils # 0.1 10^3/uL (0.0-0.1); Basophils % 0.4 %; Eosinophils # 0.2 10^3/uL (0.0-0.8); Eosinophils % 1.4 %; Hematocrit 46.2 % (37.0-47.0); Hemoglobin 15.1 g/dL (11.5-15.3); Lymphocytes # 2.2 10^3/uL (0.8-4.8); Lymphocytes % 18.9 %; Mean Corpuscular HGB Conc 32.7 g/dL (30.0-36.0); Mean Corpuscular Hemoglobin 30.1 pg (28.0-34.0); Mean Corpuscular Volume 92.2 fl (81-99); Mean Platelet Volume 11.3 fL (7.4-10.4); Monocytes # 0.9 10^3/uL (0.2-0.9); Monocytes % 7.8 %; Neutrophils # 8.36 10^3/uL (1.8-7.7); Neutrophils % 71.1 %; Nucleated Red Blood Cells % 0 %; Platelet Count 182 10^3/cmm (130-400); Red Blood Count 5.01 10^6/uL (4.1-5.3); Red Cell Distribution Width 13.2 % (12.1-15.1); White Blood Count 11.8 10^3/uL (4.0-10.0)
[2023-02-05 09:27] LABS: Alanine Aminotransferase 33 U/L (0-33); Alkaline Phosphatase 88 U/L (35-105); Blood Urea Nitrogen 13 mg/dL (8-23); Calcium 9.2 mg/dL (8.5-10.5); Carbon Dioxide 27 mmol/L (22-29); Chloride 99 mmol/L (98-107); Globulin 3.4 g/dL (1.3-4.6); Glucose 154 mg/dL (65-115); Lipase 27 U/L (13-60); Osmolality Calculated 287 mOsm/kg (285-295); Sodium 137 mmol/L (136-145); Total Bilirubin 0.6 mg/dL (0.15-1.2); Total Protein 7.4 g/dL (6.6-8.7)
[2023-02-05 09:37] LABS: Anion Gap 15.5 (5-19); Aspartate Amino Transferase 30 U/L (0-32); Potassium 4.5 mmol/L (3.5-5.1)
[2023-02-05 10:07] LABS: Blood Urine Trace (Negative); Glucose Urine UA Norm (Normal); Ketones Urine Negative (Negative); Protein Urine Neg (Negative); Specific Gravity, Urine 1.005 (1.005-1.030); Urine Appearance Clear (CLEAR); Urine Color Yellow (Yellow); pH Urine 6.5 (5-7)
[2023-02-05 10:08] LABS: Add Urine Culture? No; Add Urine Microscopic? YES; Bacteria Urine TRACE /hpf; Bilirubin Urine Neg (Negative); Leukocyte Esterase Urine Negative (Negative); Nitrate Urine Negative (Negative); RBC Urine RARE /hpf (0-2); Urobilinogen Urine Norm (Negative)
[2023-02-05 10:12] VITALS: BP 133/92; PULSE 80; O2SAT 93
--- NOTE | 2023-02-06 18:25 | PC.NURSE ---
I spoke with Vernell (daughter) to let her know that the medicine was called in by nurse Nitin and will be ready for pickup at [facility] at 10 am. RX was changed to liquid form.
== END 2023-02-05 10:11 | disposition home or self-care (01) ==
PROVIDERS: Emergency Provider Family Medicine; PCP Nurse Practitioner
DX: K57.92 Diverticulitis of intestine, part unspecified, without perforation or abscess without bleeding (principal)
CPT/HCPCS: 74176; 80053; 81001; 83690; 85025; 87324; 87493; 93005; 99285

== ENCOUNTER → 2023-02-15 13:53 | Outpatient (BNVA) | payer MEDICARE, OTHER, SELFPAY | PROVIDERS: PCP Nurse Practitioner; Visit Provider Internal Medicine Cardiovascular Disease | DX: R07.9 Chest pain, unspecified (principal); I10 Essential (primary) hypertension; Z87.891 Personal history of nicotine dependence | CPT/HCPCS: 99214 ==

== ENCOUNTER → 2023-02-16 09:11 | Outpatient (BNVA) | payer MEDICARE, OTHER, SELFPAY | PROVIDERS: PCP Nurse Practitioner; Visit Provider Nurse Practitioner Family | DX: R30.0 Dysuria (principal) | CPT/HCPCS: 81000; 87077; 87086; 87184 ==

== ENCOUNTER → 2023-02-23 09:24 | Outpatient (BNVA) | payer MEDICARE, OTHER, SELFPAY | PROVIDERS: PCP Nurse Practitioner; Visit Provider Nurse Practitioner Family | DX: R30.0 Dysuria (principal) | CPT/HCPCS: 81000 ==

== ENCOUNTER → 2023-02-28 08:22 | Outpatient (BNVA) | payer MEDICARE, OTHER, SELFPAY | PROVIDERS: PCP Nurse Practitioner; Visit Provider Surgery | DX: Z12.11 Encounter for screening for malignant neoplasm of colon (principal) | CPT/HCPCS: 99024; 99203 ==

== ENCOUNTER → 2023-03-27 08:49 | Outpatient (BNVA) | payer MEDICARE, OTHER, SELFPAY | PROVIDERS: PCP Nurse Practitioner; Visit Provider Nurse Practitioner | DX: E11.65 Type 2 diabetes mellitus with hyperglycemia (principal); J45.30 Mild persistent asthma, uncomplicated; Z91.018 Allergy to other foods; K22.70 Barrett's esophagus without dysplasia; K21.9 Gastro-esophageal reflux disease without esophagitis; N39.0 Urinary tract infection, site not specified | CPT/HCPCS: 80053; 80061; 82043; 83036 ==

== ENCOUNTER 2023-04-10 13:32 | Outpatient (CLI) | payer MEDICARE, OTHER, SELFPAY ==
--- NOTE | 2023-04-10 13:43 | MM_ITS ---
WS: [id number] BILATERAL 3D TOMOSYNTHESIS DIGITAL SCREENING MAMMOGRAPHY WITH CAD CLINICAL INFORMATION: Z12.39 - Encounter for other screening for malignant neop... HISTORY: Screening mammogram. No current complaints. COMPARISON: 2020 TECHNIQUE: Bilateral CC and MLO views. FINDINGS: Scattered fibroglandular densities bilaterally. No suspicious focal mass, asymmetry, calcifications, or architectural distortion. No evidence of malignancy. Incidental punctate calcifications. Stable dy strophic calcifications. IMPRESSION: MM/[place] [id number] BI-RADS: 2-Benign FOLLOW UP: 1 Year Follow-up Recommend return to annual screening mammography.
== END 2023-04-10 13:33 | disposition home or self-care (01) ==
PROVIDERS: PCP Nurse Practitioner; Visit Provider Nurse Practitioner Family
DX: Z12.31 Encounter for screening mammogram for malignant neoplasm of breast (principal)
CPT/HCPCS: 77063; 77067

== ENCOUNTER 2023-04-18 18:51 | Emergency (ER) | payer MEDICARE, OTHER, SELFPAY ==
[2023-04-18 18:52] VITALS: BP 178/101; PULSE 85; RESP 16; TEMP 36.4; O2SAT 84; BMI 37.0
[2023-04-18 19:17] VITALS: BP 147/95; PULSE 80; RESP 23; O2SAT 94
[2023-04-18 19:23] LABS: Basophils % 0.6 %; Eosinophils % 0.5 %; Hematocrit 44.9 % (36-47); Lymphocytes # 1.1 10^3/uL (0.8-4.8); Lymphocytes % 16.6 %; Mean Corpuscular HGB Conc 32.3 g/dL (30-55); Mean Corpuscular Hemoglobin 29.5 pg (27-33); Mean Corpuscular Volume 91.3 fl (85-98); Mean Platelet Volume 10.9 fL (7.4-10.4); Monocytes # 0.5 10^3/uL (0.2-0.9); Monocytes % 8.4 %; Neutrophils # 4.62 10^3/uL (1.8-7.7); Nucleated Red Blood Cells % 0 %; Platelet Count 148 10^3/cmm (157-399); Red Blood Count 4.92 10^6/uL (3.85-5.65); Red Cell Distribution Width 12.9 % (12.1-15.1); White Blood Count 6.33 10^3/uL (3.29-11.43)
[2023-04-18 19:29] LABS: INR 1.25 (0.8-1.2)
[2023-04-18 19:35] LABS: Alanine Aminotransferase 30 U/L (0-33); Albumin Level 3.9 g/dL (3.5-5.2); Alkaline Phosphatase 80 U/L (35-105); Anion Gap 15.3 (5-19); Aspartate Amino Transferase 28 U/L (0-32); Blood Urea Nitrogen 14 mg/dL (8-23); Carbon Dioxide 26 mmol/L (22-29); Chloride 98 mmol/L (98-107); Globulin 3.4 g/dL (1.3-4.6); Glucose 198 mg/dL (65-115); Lipase 21 U/L (13-60); Osmolality Calculated 286 mOsm/kg (285-295); Potassium 4.3 mmol/L (3.5-5.1); Sodium 135 mmol/L (136-145); Total Bilirubin 0.7 mg/dL (0.15-1.2); Total Protein 7.3 g/dL (6.6-8.7)
--- NOTE | 2023-04-18 19:38 | W.ED.ABDPA2 ---
HPI - Abdominal Pain General: Chief Complaint: Abdominal Pain Stated Complaint: ABD Pain, N/V Time Seen by Provider: 04/18/23 18:54 History of Present Illness: Patient presents to the ER with worsening abdominal pain that started today. He woke up and has some nausea vomiting and diarrhea today. Patient says his left lower quadrant abdominal pain. EMS gave patient 4 mg Zofran and 1 mg of Dilaudid patient is currently pain-free. However patient is fairly sedate and requiring 2 L of oxygen and is normally not on oxygen. Patient is alert oriented and answers questions appropriately just appears tired. Patient has recently seen Dr. Estevez and is in the process of scheduling a colonoscopy. Review of Systems General: Reports: 10 or more systems reviewed and unremarkable except in HPI and below PFSH ED PFSH: Medical History Allergy to alpha-gal Asthma Chronic constipation Controlled diabetes mellitus with hyperglycemia, without long-term current use of insulin Diverticulosis Essential hypertension Gastric reflux Renal cyst, right Tachycardia Surgical History History of colonoscopy 2012 History of esophagogastroduodenoscopy (EGD) History of tubal ligation S/P cataract surgery Family History Other Cancer Diabetes Stroke Denies family history of Bleeding disorder Social History Smoking and tobacco/nicotine status: former use of tobacco/nicotine Second hand smoke exposure: No Alcohol intake: never Substance/Drug Use: never Adopted: No Caregiver/support person: No Lives independently: Yes Household members: spouse Housing: House Marital status: service: No Current occupational status: retired Do you think of yourself as: Straight/Heterosexual Current gender identity: Female Physical Exam Const: COMMON NORMALS: no acute distress, average body habitus, patient oriented x3, no limitations, healthy appearing, alert and well nourished HENMT: COMMON NORMALS: normocephalic, atraumatic, hearing grossly normal bilaterally, external ears normal, Normal external nose present, moist oral mucous membranes and oropharynx normal HEAD & SCALP: normocephalic and atraumatic NOSE: Normal external nose present EXTERNAL EAR: Yes external ears normal Neck/C-Spine: COMMON NORMALS: no JVD Chest: COMMONS NORMALS: normal inspection of the chest and normal palpation of entire chest wall Resp: COMMON NORMALS: normal respiratory effort, No retractions, No use of accessory muscles and clear to auscultation bilaterally AUSCULTATION: clear to auscultation bilaterally Cardio: COMMON NORMALS: no JVD, regular rate, regular rhythm, S1 normal heart sound present, S2 normal heart sound present, No gallops present (Cardio), No clicks present (Cardio), No murmurs present (Cardio) and No rub (Cardio) RATE: regular rate RHYTHM: regular rhythm HEART SOUNDS: S1 normal heart sound present and S2 normal heart sound present GI: COMMON NORMALS: Normal to inspection, nondistended, normoactive bowel sounds present, Soft to palpation, non-tender, No hepatosplenomegaly present and no masses PALPATION: Yes Soft to palpation and Yes No hepatosplenomegaly present : COMMON NORMALS: Yes no CVA tenderness BLADDER/KIDNEY EXAM: Yes no CVA tenderness Back/Pelvis: COMMON NORMALS: no CVA tenderness Neuro: COMMON NORMALS: patient oriented x3 SENSORIUM/ORIENTATION: Yes alert Course Vital Signs: Vital signs: Vital Signs Temperature 97.5 F L 04/18/23 18:52 Pulse Rate 93 04/19/23 00:11 Respiratory Rate 23 H 04/19/23 00:11 Blood Pressure 159/93 04/19/23 00:11 Pulse Oximetry 100 04/19/23 00:11 Oxygen Delivery Me thod Room Air 04/18/23 21:44 Oxygen Flow Rate 2 04/18/23 21:13 MDM - Abdominal Pain Medical Decision Making Patient presents to the ER complaining of left lower quadrant pain and diarrhea. Patient's had diverticulitis in the past. Lab work was obtained which was essentially an uneventful except for urinary tract infection. Patient was given 1 g Rocephin and 30 of Toradol in her IV. Patient was given 4 mg Zofran and 1 mg Dilaudid on route by EMS. Patient must take tablets not capsules and patient is allergic to several different things. Patient be placed on Augmentin and metronidazole to cover urinary tract and the diverticulitis. Patient should follow-up with her PCP in approximately 7 days. Differential Diagnosis Likely abdominal pain; Unlikely acute appendicitis, calculus of kidney, constipation, diverticulitis, endometriosis, gastroenteritis, pancreatitis or small bowel obstruction Medical Records I reviewed the patient's medical records. Lab Data I reviewed the patient's lab results. 04/18/23 19:11 04/18/23 19:11 Labs/Radiology: Laboratory Results WBC 6.33 10^3/uL (3.29-11.43) 04/18/23 19:11 RBC 4.92 10^6/uL (3.85-5.65) 04/18/23 19:11 Hgb 14.50 g/dL (11.27-16.99) 04/18/23 19:11 Hct 44.9 % (36-47) 04/18/23 19:11 MCV 91.3 fl (85-98) 04/18/23 19:11 MCH 29.5 pg (27-33) 04/18/23 19:11 MCHC 32.3 g/dL (30-55) 04/18/23 19:11 RDW 12.9 % (12.1-15.1) 04/18/23 19:11 Plt Count 148 10^3/cmm (157-399) L 04/18/23 19:11 MPV 10.9 fL (7.4-10.4) H 04/18/23 19:11 Neut % (Auto) 73.0 % 04/18/23 19:11 Lymph % (Auto) 16.6 % 04/18/23 19:11 Cameron % (Auto) 8.4 % 04/18/23 19:11 Eos % (Auto) 0.5 % 04/18/23 19:11 Baso % (Auto) 0.6 % 04/18/23 19:11 Neut # (Auto) 4.62 10^3/uL (1.8-7.7) 04/18/23 19:11 Lymph # (Auto) 1.1 10^3/uL (0.8-4.8) 04/18/23 19:11 Cameron # (Auto) 0.5 10^3/uL (0.2-0.9) 04/18/23 19:11 Eos # (Auto) 0.0 10^3/uL (0.0-0.8) 04/18/23 19:11 Baso # (Auto) 0.0 10^3/uL (0.0-0.1) 04/18/23 19:11 Nucleated RBC % (auto) 0 % 04/18/23 19:11 Nucleated RBCs # 0.0 /100WBC 04/18/23 19:11 PT 16.10 SECONDS (12.1-14.9) H 04/18/23 19:11 INR 1.25 (0.8-1.2) H 04/18/23 19:11 Sodium 135 mmol/L (136-145) L 04/18/23 19:11 Potassium 4.3 mmol/L (3.5-5.1) 04/18/23 19:11 Chloride 98 mmol/L (98-107) 04/18/23 19:11 Carbon Dioxide 26 mmol/L (22-29) 04/18/23 19:11 Anion Gap 15.3 (5-19) 04/18/23 19:11 BUN 14 mg/dL (8-23) 04/18/23 19:11 Creatinine 1.0 mg/dL (0.5-0.9) H 04/18/23 19:11 GFR Calculation Not Reportable 04/18/23 19:11 Glucose 198 mg/dL (65-115) H 04/18/23 19:11 Calculated Osmolality 286 mOsm/kg (285-295) 04/18/23 19:11 Calcium 9.0 mg/dL (8.5-10.5) 04/18/23 19:11 Magnesium 2.0 mg/dL (1.7-2.3) 04/18/23 19:11 Total Bilirubin 0.7 mg/dL (0.15-1.2) 04/18/23 19:11 AST 28 U/L (0-32) 04/18/23 19:11 ALT 30 U/L (0-33) 04/18/23 19:11 Alkaline Phosphatase 80 U/L (35-105) 04/18/23 19:11 Total Protein 7.3 g/dL (6.6-8.7) 04/18/23 19:11 Albumin 3.9 g/dL (3.5-5.2) 04/18/23 19:11 Globulin 3.4 g/dL (1.3-4.6) 04/18/23 19:11 Lipase 21 U/L (13-60) 04/18/23 19:11 Urine Color Brown (Yellow) A 04/18/23 21:45 Urine Appearance Cloudy (CLEAR) A 04/18/23 21:45 Urine pH 6 (5-7) 04/18/23 21:45 Ur Specific [place] 1.020 (1.005-1.030) 04/18/23 21:45 Urine Protein 1+ (Negative) H 04/18/23 21:45 Urine Glucose (UA) Norm (Normal) 04/18/23 21:45 Urine Ketones 1+ (Negative) H 04/18/23 21:45 Urine Blood 3+ (Negative) H 04/18/23 21:45 Urine Nitrate Negative (Negative) 04/18/23 21:45 Urine Bilirubin Neg (Negative) 04/18/23 21:45 Urine Urobilinogen Neg mg/dL (Negative) 04/18/23 21:45 Ur Leukocyte Esterase Trace (Negative) H 04/18/23 21:45 Urine RBC 50-80 /hpf (0-2) H 04/18/23 21:45 Urine WBC 5-10 /hpf (0-5) H 04/18/23 21:45 Ur Squamous Epith Cells None /hpf (0-5) 04/18/23 21:45 Ur Transition Epith Cell 0-4 /hpf 04/18/23 21:45 Amorphous Sediment 1+ /hpf 04/18/23 21:45 Urine Bacteria 2+ /hpf (NONE) H 04/18/23 21:45 Urine Mucus 2+ /hpf 04/18/23 21:45 No radiology studies performed this visit Discharge Plan Discharge Patient Disposition: Home Clinical Impression: Diverticulitis Urinary tract infection Qualifiers: Urinary tract infection type: acute cystitis Hematuria presence: with hematuria Qualified Code(s): N30.01 - Acute cystitis with hematuria Condition: Stable Prescriptions: New amoxicillin-pot clavulanate 875-125 mg tablet 1 tab PO Q12H Qty: 20 0RF metronidazole 500 mg tablet 500 mg PO Q8H Qty: 30 0RF No Action ipratropium-albuterol 0.5 mg-3 mg(2.5 mg base)/3 mL solution for nebulization 3 ml INHALATION BID PRN (Reason: Shortness Of Breath) nitroglycerin [Nitrostat] 0.4 mg tablet, sublingual 0.4 mg SUBLINGUAL Q5M PRN (Reason: chest pain) 30 Days Qty: 25 6RF Rx Instructions: until response; do not exceed 3 doses per episode atorvastatin 10 mg tablet 10 mg PO DAILY Qty: 90 3RF (DME) diabetic shoes 1 pair to fit See Rx Instructions .Route .MEDSUPPLY Qty: 1 0RF Rx Instructions: As directed verapamil 180 mg tablet extended release 180 mg PO DAILY Qty: 90 3RF albuterol sulfate [ProAir HFA] 90 mcg/actuation HFA aerosol inhaler 2 puff inhalation Q6H PRN (Reason: shortness of breath or wheezing) Qty: 25.5 5RF epinephrine [EpiPen 2-Vidal] 0.3 mg/0.3 mL auto-injector 0.3 mg IM Q10M PRN (Reason: anaphylaxis) Qty: 2 0RF Rx Instructions: for 2 doses magnesium oxide 400 mg magnesium tablet 400 mg PO BID Qty: 180 1RF pantoprazole 40 mg tablet,delayed release (DR/EC) 40 mg PO DAILY PRN (Reason: acid reflux) 90 Days Qty: 90 1RF Januvia 100 mg tablet 100 mg PO QAM Qty: 90 1RF sucralfate [Carafate] 1 gram tablet 1 g PO TID 90 Days Qty: 270 1RF methenamine hippurate 1 gram tablet 1 g PO BID Qty: 180 1RF ascorbic acid (vitamin C) 1,000 mg tablet 1 g PO BID Qty: 60 0RF metoprolol succinate 25 mg tablet extended release 24 hr 25 mg PO BID Qty: 90 3RF isosorbide mononitrate 30 mg tablet extended release 24 hr 30 mg PO BID Qty: 180 2RF Florastor 250 mg capsule 250 mg PO TID Xarelto 20 mg tablet 20 mg PO BEDTIME Multivitamins 28 mg iron- 800 mcg Tablet 1 tab PO DAILY Plexus Bio Cleanse 2 cap PO DAILY Plexus Probio 5 1 tab PO DAILY Plexus Xfactor 2 tab PO QAM budesonide 0.5 mg/2 mL suspension for nebulization 0.5 mg INHALATION DAILY PRN Paul Milk of Magnesia 400 mg/5 mL suspension 15 ml PO BEDTIME PRN Discharge Orders: Discharge ED (Routine); Ordered 04/18/23 Ordered By: Jose Sapp Referrals: Samir Kaufman, APPRENTICE PLANT ATTENDANT-C [Primary Care Provider] - 7-10 days Patient Instructions: Diverticulitis (ED), Urinary Tract Infection - Women Activity Restrictions/Additional Instructions: Please take all medicine as prescribed. Please follow-up with your family practice physician in 7 to 10 days for further evaluation and treatment. Coding Level of Care Code ED Financial Planning Adviser for Hannah Renteria
[2023-04-18] MEDS: sodium chloride 0.9% 1,000 ML 999 ML IV (20:32)
[2023-04-18 21:13] VITALS: BP 162/91; PULSE 85; RESP 15; O2SAT 94
[2023-04-18 21:44] VITALS: BP 164/98; PULSE 92; RESP 23; O2SAT 93
[2023-04-18 22:00] LABS: Glucose Urine UA Norm (Normal); Protein Urine 1+ (Negative); Urine Appearance Cloudy (CLEAR); Urine Color Brown (Yellow); pH Urine 6 (5-7)
[2023-04-18 22:01] LABS: Add Urine Microscopic? YES; Amorphous Sediment Urine 1+ /hpf; Bacteria Urine 2+ /hpf; Bilirubin Urine Neg (Negative); Blood Urine 3+ (Negative); Ketones Urine 1+ (Negative); Leukocyte Esterase Urine Trace (Negative); Mucus Urine 2+ /hpf; Nitrate Urine Negative (Negative); RBC Urine 50-80 /hpf (0-2); Transitional Epi Cells Urine 0-4 /hpf; Urobilinogen Urine Neg (Negative)
[2023-04-18 22:02] LABS: Add Urine Culture? Yes
[2023-04-18] MEDS: cefTRIAXone 1,000 MG in sodium chloride 0.9% (plus) 50 ML 100 MG IV (22:21)
[2023-04-18] MEDS: ketorolac 30 mg/mL INJ IVP (23:10)
[2023-04-18] MEDS: ondansetron 2 mg/ML SDV 2 mL 4 MG IVP (23:10)
[2023-04-19 00:11] VITALS: BP 159/93; PULSE 93; RESP 23; O2SAT 100
== END 2023-04-19 00:13 | disposition home or self-care (01) ==
PROVIDERS: Emergency Provider Emergency Medicine; PCP Nurse Practitioner
DX: K57.92 Diverticulitis of intestine, part unspecified, without perforation or abscess without bleeding (principal); N30.01 Acute cystitis with hematuria; Z87.891 Personal history of nicotine dependence; E11.9 Type 2 diabetes mellitus without complications; I10 Essential (primary) hypertension
CPT/HCPCS: 36415; 80053; 81001; 83690; 83735; 85025; 85610; 87077; 87086; 87186; 96365; 96375; 99284; J0696; J1885; J2405; J7030

== ENCOUNTER → 2023-05-24 15:17 | Outpatient (BNVA) | payer MEDICARE, OTHER, SELFPAY | PROVIDERS: PCP Nurse Practitioner; Visit Provider Nurse Practitioner Family | DX: N39.0 Urinary tract infection, site not specified (principal); R07.9 Chest pain, unspecified | CPT/HCPCS: 81003; 87077; 87086; 87184 ==

== ENCOUNTER → 2023-05-25 08:20 | Outpatient (BNVA) | payer MEDICARE, OTHER, SELFPAY | PROVIDERS: PCP Nurse Practitioner; Visit Provider Nurse Practitioner Family | DX: R07.9 Chest pain, unspecified (principal) | CPT/HCPCS: 84484 ==

== ENCOUNTER → 2023-06-01 11:20 | Outpatient (BNVA) | payer MEDICARE, SELFPAY | PROVIDERS: PCP Nurse Practitioner; Visit Provider Nurse Practitioner Family | DX: R05.9 Cough, unspecified (principal) | CPT/HCPCS: 87400; 87426 ==

== ENCOUNTER → 2023-09-25 09:52 | Outpatient (BNVA) | payer MEDICARE, SELFPAY | PROVIDERS: PCP Nurse Practitioner; Visit Provider Nurse Practitioner | DX: M25.511 Pain in right shoulder (principal); G89.29 Other chronic pain; E11.65 Type 2 diabetes mellitus with hyperglycemia | CPT/HCPCS: 73030; 80053; 80061; 81003; 83036; 85025 ==

== ENCOUNTER 2023-10-03 13:58 | Outpatient (CLI) | payer MEDICARE, OTHER, SELFPAY ==
--- NOTE | 2023-10-03 14:30 | XR_ITS ---
WS: [id number] SCREENING DEXA SCAN [employer] CLINICAL INFORMATION: Z78.0 - Asymptomatic menopausal state COMPARISON: None. FINDINGS: The L1-L4 bone mineral density measures 0.853 g/cm2. This corresponds to a T score score of -2.7 and Z score of -2.1. Left femoral neck bone mineral density measures 0.754 g/cm2. This corresponds to a T score of -2.0 an d Z score of -1.0. Right femoral neck bone mineral density measures 0.873 g/cm2. This corresponds to a T score -1.1of an d Z score of 0.0. Mean femoral neck bone mineral density measures 0.814 g/cm2. This corresponds to a T score of -1.5 an d Z score of -0.5. IMPRESSION: Osteoporosis lumbar spine. Osteopenia femoral necks. Patient's FRAX calculated 10 year probability for major osteoporotic fracture is 25.3% and osteoporot ic hip fracture is 8.1%.
== END 2023-10-03 13:59 | disposition home or self-care (01) ==
LOC: RAD 13:58
PROVIDERS: PCP Nurse Practitioner; Visit Provider Nurse Practitioner
DX: Z78.0 Asymptomatic menopausal state (principal); M81.0 Age-related osteoporosis without current pathological fracture; M85.88 Other specified disorders of bone density and structure, other site
CPT/HCPCS: 77080

== ENCOUNTER → 2023-11-09 14:29 | Outpatient (BNVA) | payer MEDICARE, OTHER, SELFPAY | PROVIDERS: PCP Nurse Practitioner; Visit Provider Internal Medicine | DX: R07.9 Chest pain, unspecified (principal); I10 Essential (primary) hypertension; R00.0 Tachycardia, unspecified; K22.70 Barrett's esophagus without dysplasia; G45.9 Transient cerebral ischemic attack, unspecified; K21.9 Gastro-esophageal reflux disease without esophagitis; E11.65 Type 2 diabetes mellitus with hyperglycemia; Z87.891 Personal history of nicotine dependence | CPT/HCPCS: 99214 ==

== ENCOUNTER 2023-11-14 03:13 | Emergency (ER) | payer MEDICARE, OTHER, SELFPAY ==
[2023-11-14 03:13] VITALS: BP 96/78; PULSE 106; RESP 16; TEMP 36.6; O2SAT 92; BMI 37.5
--- NOTE | 2023-11-14 03:25 | ED_ITS ---
HPI - Nausea/Vomiting/Diarrhea 2 General: Chief complaint: Nausea/Vomiting/Diarrhea Stated complaint: N/V Time Seen by Provider: 11/14/23 03:14 History of Present Illness: Patient presents to the ER with complaints of nausea vomiting that began at about midnight. EMS gave the patient 25 mg of Phenergan patient is feeling a little bit better. Patient denies any abdominal pain other than when she heaves while vomiting. Patient does think she may have ate some bad food, bad mayonnaise. Review of Systems 2 General: Reports: 10 or more systems reviewed and unremarkable except in HPI and below PFSH ED 2 PFSH: Medical History Renal cyst, right Essential hypertension Tachycardia Gastric reflux Allergy to alpha-gal Asthma Chronic constipation Diverticulosis Controlled diabetes mellitus with hyperglycemia, without long-term current use of insulin Surgical History History of esophagogastroduodenoscopy (EGD) S/P cataract surgery History of tubal ligation History of colonoscopy 2012 & 2023 Family History Other Cancer Diabetes Stroke Denies family history of Bleeding disorder Social History Smoking and tobacco/nicotine status: former use of tobacco/nicotine Second hand smoke exposure: No Alcohol intake: never Substance/Drug Use: never Adopted: No Caregiver/support person: No Lives independently: Yes Household members: spouse Housing: House Marital status: service: No Current occupational status: retired Do you think of yourself as: Straight/Heterosexual Current gender identity: Female Physical Exam 2 Const: COMMON NORMALS: no acute distress, average body habitus, patient oriented x3, no limitations, healthy appearing, alert and well nourished HENMT: COMMON NORMALS: normocephalic, atraumatic, hearing grossly normal bilaterally, external ears normal, Normal external nose present, moist oral mucous membranes and oropharynx normal HEAD & SCALP: normocephalic and atraumatic NOSE: Normal external nose present EXTERNAL EAR: Yes external ears normal Neck/C-Spine: COMMON NORMALS: no JVD Chest: COMMONS NORMALS: normal inspection of the chest and normal palpation of entire chest wall Resp: COMMON NORMALS: normal respiratory effort, No retractions, No use of accessory muscles and clear to auscultation bilaterally AUSCULTATION: clear to auscultation bilaterally Cardio: COMMON NORMALS: no JVD, regular rate, regular rhythm, S1 normal heart sound present, S2 normal heart sound present, No gallops present (Cardio), No clicks present (Cardio), No murmurs present (Cardio) and No rub (Cardio) R ATE: regular rate RHYTHM: regular rhythm HEART SOUNDS: S1 normal heart sound present and S2 normal heart sound present GI: COMMON NORMALS: Normal to inspection, nondistended, normoactive bowel sounds present, Soft to palpation, non-tender, No hepatosplenomegaly present and no masses PALPATION: Yes Soft to palpation and Yes No hepatosplenomegaly present Neuro: COMMON NORMALS: patient oriented x3 SENSORIUM/ORIENTATION: Yes alert Course 2 Vital Signs: Vital signs: Vital Signs Temperature 97.8 F 11/14/23 03:13 Pulse Rate 104 H 11/14/23 04:19 Respiratory Rate 16 11/14/23 03:13 Blood Pressure 102/87 11/14/23 04:19 Pulse Oximetry 93 11/14/23 04:19 Oxygen Delivery Me thod Room Air 11/14/23 04:19 MDM - Nausea/Vomiting/Diarrhea Medical Decision Making Patient presents with nausea vomiting. She think she may have eaten some bad food. Patient had lab work to include CBC CMP magnesium and urinalysis all of which essentially benign. Patient was given 1 L bolus normal saline and received 25 mg Phenergan in the ambulance and she is feeling much better. Labs were discussed with the patient patient be discharged home. Differential Diagnosis Likely gastroenteritis; Unlikely traveler's diarrhea, food poisoning, clostridium difficile infection, drug-induced nausea and vomiting or dehydration Medical Records I reviewed the patient's medical records. Lab Data I reviewed the patient's lab results. 11/14/23 03:24 11/14/23 03:24 Laboratory Results WBC 14.72 10^3/uL (3.29-11.43) H 11/14/23 03:24 RBC 5.31 10^6/uL (3.85-5.65) 11/14/23 03:24 Hgb 15.70 g/dL (11.27-16.99) 11/14/23 03:24 Hct 48.7 % (36-47) H 11/14/23 03:24 MCV 91.7 fl (85-98) 11/14/23 03:24 MCH 29.6 pg (27-33) 11/14/23 03:24 MCHC 32.2 g/dL (30-55) 11/14/23 03:24 RDW 13.0 % (12.1-15.1) 11/14/23 03:24 Plt Count 186 10^3/cmm (157-399) 11/14/23 03:24 MPV 11.5 fL (7.4-10.4) H 11/14/23 03:24 Neut % (Auto) 87.4 % 11/14/23 03:24 Lymph % (Auto) 5.0 % 11/14/23 03:24 Blackford % (Auto) 6.9 % 11/14/23 03:24 Eos % (Auto) 0.2 % 11/14/23 03:24 Baso % (Auto) 0.2 % 11/14/23 03:24 Neut # (Auto) 12.86 10^3/uL (1.8-7.7) H 11/14/23 03:24 Lymph # (Auto) 0.7 10^3/uL (0.8-4.8) L 11/14/23 03:24 Blackford # (Auto) 1.0 10^3/uL (0.2-0.9) H 11/14/23 03:24 Eos # (Auto) 0.0 10^3/uL (0.0-0.8) 11/14/23 03:24 Baso # (Auto) 0.0 10^3/uL (0.0-0.1) 11/14/23 03:24 Nucleated RBC % (auto) 0 % 11/14/23 03:24 Nucleated RBCs # 0.0 /100WBC 11/14/23 03:24 Sodium 138 mmol/L (136-145) 11/14/23 03:24 Potassium 4.4 mmol/L (3.5-5.1) 11/14/23 03:24 Chloride 98 mmol/L (98-107) 11/14/23 03:24 Carbon Dioxide 27 mmol/L (22-29) 11/14/23 03:24 Anion Gap 17.4 (5-19) 11/14/23 03:24 BUN 18 mg/dL (8-23) 11/14/23 03:24 Creatinine 0.9 mg/dL (0.5-0.9) 11/14/23 03:24 GFR Calculation Not Reportable 11/14/23 03:24 Glucose 196 mg/dL (65-115) H 11/14/23 03:24 Calculated Osmolality 293 mOsm/kg (285-295) 11/14/23 03:24 Calcium 9.5 mg/dL (8.5-10.5) 11/14/23 03:24 Magnesium 1.8 mg/dL (1.7-2.3) 11/14/23 03:24 Total Bilirubin 0.5 mg/dL (0.15-1.2) 11/14/23 03:24 AST 39 U/L (0-32) H 11/14/23 03:24 ALT 41 U/L (0-33) H 11/14/23 03:24 Alkaline Phosphatase 101 U/L (35-105) 11/14/23 03:24 Total Protein 7.7 g/dL (6.6-8.7) 11/14/23 03:24 Albumin 4.1 g/dL (3.5-5.2) 11/14/23 03:24 Globulin 3.6 g/dL (1.3-4.6) 11/14/23 03:24 Urine Color Yellow (Yellow) 11/14/23 05:15 Urine Appearance Clear (CLEAR) 11/14/23 05:15 Urine pH 7 (5-7) 11/14/23 05:15 Ur Specific [place] 1.010 (1.005-1.030) 11/14/23 05:15 Urine Protein Neg (Negative) 11/14/23 05:15 Urine Glucose (UA) Norm (Normal) 11/14/23 05:15 Urine Ketones 1+ (Negative) H 11/14/23 05:15 Urine Blood Neg (Negative) 11/14/23 05:15 Urine Nitrate Negative (Negative) 11/14/23 05:15 Urine Bilirubin Neg (Negative) 11/14/23 05:15 Urine Urobilinogen Neg mg/dL (Negative) 11/14/23 05:15 Ur Leukocyte Esterase Negative (Negative) 11/14/23 05:15 All radiology interpretation(s) finalized by discharge Discharge Plan Discharge Patient Disposition: Home Clinical Impression: Gastroenteritis Condition: Stable Prescriptions: New ondansetron HCl 4 mg tablet 4 mg PO Q8H PRN (Reason: nausea and vomiting) Qty: 14 0RF No Action ipratropium-albuterol 0.5 mg-3 mg(2.5 mg base)/3 mL solution for nebulization 3 ml INHALATION BID PRN (Reason: Shortness Of Breath) nitroglycerin [Nitrostat] 0.4 mg tablet, sublingual 0.4 mg SUBLINGUAL Q5M PRN (Reason: chest pain) 30 Days Qty: 25 6RF Rx Instructions: until response; do not exceed 3 doses per episode atorvastatin 10 mg tablet 10 mg PO DAILY Qty: 90 3RF (DME) diabetic shoes 1 pair to fit See Rx Instructions .Route .MEDSUPPLY Qty: 1 0RF Rx Instructions: As directed verapamil 180 mg tablet extended release 180 mg PO DAILY Qty: 90 3RF epinephrine [EpiPen 2-Vidal] 0.3 mg/0.3 mL auto-injector 0.3 mg IM Q10M PRN (Reason: anaphylaxis) Qty: 2 0RF Rx Instructions: for 2 doses ascorbic acid (vitamin C) 1,000 mg tablet 1 g PO BID Qty: 60 0RF Xarelto 20 mg tablet 20 mg PO BEDTIME Qty: 90 3RF isosorbide mononitrate 30 mg tablet extended release 24 hr 30 mg PO BID Qty: 180 2RF metoprolol succinate 25 mg tablet extended release 24 hr 25 mg PO QPM Qty: 90 3RF albuterol sulfate [ProAir HFA] 90 mcg/actuation HFA aerosol inhaler 2 puff inhalation Q6H PRN (Reason: shortness of breath or wheezing) Qty: 25.5 5RF magnesium oxide 400 mg magnesium tablet 400 mg PO BID Qty: 180 1RF pantoprazole 40 mg tablet,delayed release (DR/EC) 40 mg PO DAILY PRN (Reason: acid reflux) 90 Days Qty: 90 1RF Januvia 100 mg tablet 100 mg PO QAM Qty: 90 1RF sucralfate [Carafate] 1 gram tablet 1 g PO TID 90 Days Qty: 270 1RF methenamine hippurate 1 gram tablet 1 g PO BID Qty: 180 1RF Rx Instructions: take with vitamin C 2 times day ibandronate 150 mg tablet 150 mg PO .monthly Qty: 3 1RF calcium carbonate-vitamin D3 [Os-Noble 500 + D3] 500 mg-15 mcg (600 unit) tablet 1 tab PO .2 times day Qty: 180 0RF Arexvy (PF) 120 mcg/0.5 mL suspension for reconstitution 120 mcg IM ONCE Qty: 1 0RF PNV cmb#95-ferrous fumarate-FA [ Multivitamins] 28 mg iron- 800 mcg Tablet 1 tab PO DAILY Plexus Bio Cleanse 2 cap PO DAILY Plexus Probio 5 1 tab PO DAILY budesonide 0.5 mg/2 mL suspension for nebulization 0.5 mg INHALATION DAILY PRN (Reason: Shortness Of Breath) Miller Milk of Magnesia 400 mg/5 mL suspension 15 ml PO BEDTIME PRN (Reason: Constipation) Discharge Orders: Discharge ED (Routine); Ordered 11/14/23 Ordered By: Jose Sapp Referrals: Samir Kaufman, [employer]ING MACHINE HAND-C [Primary Care Provider] - 1 week Patient Instructions: Acute Nausea and Vomiting (ED) Activity Restrictions/Additional Instructions: You are given IV fluids and nausea medicine in the ER we waited your lab work to result. Your lab work did not point any acute cause of your nausea vomiting. It may be a stomach virus or may be foodborne illness. You will be discharged home with more nausea medicine. Please drink plenty of fluids and follow-up with your family practitioner within the next 7 days for further evaluation and treatment. Coding Level of Care Code ED Cubing Machine Tender for Hannah Renteria
[2023-11-14 03:30] LABS: Basophils % 0.2 %; Eosinophils % 0.2 %; Hematocrit 48.7 % (36-47); Lymphocytes # 0.7 10^3/uL (0.8-4.8); Mean Corpuscular HGB Conc 32.2 g/dL (30-55); Mean Corpuscular Hemoglobin 29.6 pg (27-33); Mean Corpuscular Volume 91.7 fl (85-98); Mean Platelet Volume 11.5 fL (7.4-10.4); Monocytes % 6.9 %; Neutrophils # 12.86 10^3/uL (1.8-7.7); Neutrophils % 87.4 %; Nucleated Red Blood Cells % 0 %; Platelet Count 186 10^3/cmm (157-399); Red Blood Count 5.31 10^6/uL (3.85-5.65); White Blood Count 14.72 10^3/uL (3.29-11.43)
[2023-11-14 03:48] LABS: Alanine Aminotransferase 41 U/L (0-33); Albumin Level 4.1 g/dL (3.5-5.2); Alkaline Phosphatase 101 U/L (35-105); Anion Gap 17.4 (5-19); Aspartate Amino Transferase 39 U/L (0-32); Blood Urea Nitrogen 18 mg/dL (8-23); Calcium 9.5 mg/dL (8.5-10.5); Carbon Dioxide 27 mmol/L (22-29); Chloride 98 mmol/L (98-107); Creatinine Clr Calc Pharmacy 59.9585; Globulin 3.6 g/dL (1.3-4.6); Glucose 196 mg/dL (65-115); Magnesium 1.8 mg/dL (1.7-2.3); Osmolality Calculated 293 mOsm/kg (285-295); Potassium 4.4 mmol/L (3.5-5.1); Sodium 138 mmol/L (136-145); Total Bilirubin 0.5 mg/dL (0.15-1.2); Total Protein 7.7 g/dL (6.6-8.7)
[2023-11-14] MEDS: sodium chloride 0.9% 1,000 ML 999 ML IV (03:50)
[2023-11-14 04:19] VITALS: BP 102/87; PULSE 104; O2SAT 93
[2023-11-14 05:23] LABS: Add Urine Microscopic? NO; Charge for UA Resulting for Rev
[2023-11-14 05:24] LABS: Bilirubin Urine Neg (Negative); Blood Urine Neg (Negative); Glucose Urine UA Norm (Normal); Ketones Urine 1+ (Negative); Leukocyte Esterase Urine Negative (Negative); Nitrate Urine Negative (Negative); Protein Urine Neg (Negative); Urine Appearance Clear (CLEAR); Urine Color Yellow (Yellow); Urobilinogen Urine Neg (Negative); pH Urine 7 (5-7)
[2023-11-14 05:57] VITALS: BP 158/91; O2SAT 95
== END 2023-11-14 06:02 | disposition home or self-care (01) ==
PROVIDERS: Emergency Provider Emergency Medicine; PCP Nurse Practitioner
DX: K52.9 Noninfective gastroenteritis and colitis, unspecified (principal); Z87.891 Personal history of nicotine dependence; I10 Essential (primary) hypertension; E11.9 Type 2 diabetes mellitus without complications
CPT/HCPCS: 80053; 81003; 83735; 85025; 96360; 96361; 99284; J7030

== ENCOUNTER → 2024-01-16 13:10 | Outpatient (BNVA) | payer MEDICARE, OTHER, SELFPAY | PROVIDERS: PCP Nurse Practitioner; Visit Provider Nurse Practitioner Family | DX: L82.1 Other seborrheic keratosis (principal); S80.862A Insect bite (nonvenomous), left lower leg, initial encounter; X58.XXXA Exposure to other specified factors, initial encounter; L81.4 Other melanin hyperpigmentation; L57.0 Actinic keratosis; L57.8 Other skin changes due to chronic exposure to nonionizing radiation | CPT/HCPCS: 17000; 99214 ==

== ENCOUNTER → 2024-03-11 09:18 | Outpatient (BNVA) | payer MEDICARE, OTHER, SELFPAY | PROVIDERS: PCP Nurse Practitioner; Visit Provider Nurse Practitioner | DX: E55.9 Vitamin D deficiency, unspecified (principal); E11.65 Type 2 diabetes mellitus with hyperglycemia; E11.9 Type 2 diabetes mellitus without complications | CPT/HCPCS: 80053; 80061; 82043; 82306; 82607; 83036; 84443; 85025 ==

== ENCOUNTER → 2024-08-22 10:49 | Outpatient (BNVA) | payer MEDICARE, OTHER, SELFPAY | PROVIDERS: PCP Nurse Practitioner; Visit Provider Internal Medicine | DX: R07.9 Chest pain, unspecified (principal); I10 Essential (primary) hypertension; R00.0 Tachycardia, unspecified; K22.70 Barrett's esophagus without dysplasia; G45.9 Transient cerebral ischemic attack, unspecified; K21.9 Gastro-esophageal reflux disease without esophagitis; E11.65 Type 2 diabetes mellitus with hyperglycemia; Z87.891 Personal history of nicotine dependence | CPT/HCPCS: 99214 ==

== ENCOUNTER → 2024-08-26 08:30 | Outpatient (BNVA) | payer MEDICARE, OTHER, SELFPAY | PROVIDERS: PCP Nurse Practitioner; Visit Provider Nurse Practitioner | DX: J45.30 Mild persistent asthma, uncomplicated (principal); E11.65 Type 2 diabetes mellitus with hyperglycemia; M81.0 Age-related osteoporosis without current pathological fracture; N39.0 Urinary tract infection, site not specified; K21.9 Gastro-esophageal reflux disease without esophagitis; R25.2 Cramp and spasm; I10 Essential (primary) hypertension; E55.9 Vitamin D deficiency, unspecified; K22.70 Barrett's esophagus without dysplasia | CPT/HCPCS: 80053; 80061; 82306; 83036; 84443 ==

== ENCOUNTER 2024-09-03 11:56 | Outpatient (CLI) | payer MEDICARE, OTHER, SELFPAY ==
--- NOTE | 2024-09-03 12:00 | MM_ITS ---
WS: [id number] Bilateral screening 3D tomosynthesis digital mammogram, 09/03/2024 12:05 PM Clinical Data: Z12.31 - Encounter for screening mammogram for malignant ... Comparison: 04/10/2023, 03/26/2021, 04/11/2017, 12/09/2013, 11/15/2013, 02/27/2009, 08/15/2007, 08/08/2007. Findings: No spiculated masses or clustered calcifications are seen. There are no secondary signs of carcinoma. There are numerous areas of dystrophic calcification especially in the right breast unchanged. There are small lymph nodes in both axilla. MM/MM scr BI tomosynthesis [id number] Impression: Negative bilateral mammogram unchanged. Recommend annual screening mammograms. BIRADS: 1 - Negative. FOLLOW UP: 1 Year Follow-up DENSITY: There are scattered areas of fibroglandular density. The CAD frequency checker was used
== END 2024-09-03 11:57 | disposition home or self-care (01) ==
LOC: MOBLMAM 12:04
PROVIDERS: PCP Nurse Practitioner; Visit Provider Nurse Practitioner
DX: Z12.31 Encounter for screening mammogram for malignant neoplasm of breast (principal); R92.323 Mammographic fibroglandular density, bilateral breasts; R92.1 Mammographic calcification found on diagnostic imaging of breast; R59.0 Localized enlarged lymph nodes
CPT/HCPCS: 77063; 77067

== ENCOUNTER 2025-01-10 07:30 | Observation (INO) | payer MEDICARE, OTHER, SELFPAY ==
[2025-01-10] VITALS (9 sets, daily range): BP systolic 144–159; BP diastolic 78–101; PULSE 73–85; RESP 16–18; TEMP 36.4–36.8; O2SAT 92–98; BMI 36.3
--- OUTSIDE RECORDS SUMMARY | 2025-01-10 07:35 | XMS_ITS | Clinical Summary ---
Author Organization [facility] Address [address] Attn: Epic Prelude ADT [place] [id number] Care Team Providers Care Complaint Operator Name Role Phone Morteza Valles DO Primary Care Provider [phone] Allergies Active Allergy Reactions Criticality Noted Date Comments Alpha-Gal (Arxvuvjjj-Qmpqa-9,3-Galactos e) Hives High 06/29/2023 Pt can't eat red meat... and it depends on what it is what the effect is on her Beef Containing Products Unknown 04/18/2023 Ciprofloxacin Unknown 04/18/2023 Doxycycline Unknown 08/14/2023 Gelatin Unknown 04/18/2023 Lisinopril Unknown 04/18/2023 Pork/Porcine Containing Products Unknown 04/18/2023 Solifenacin Unknown 04/18/2023 Sulfa (Sulfonamide Antibiotics) Unknown 04/18/2023 Trimethaphan Unknown 08/14/2023 Medications ergocalciferol (VITAMIN D2) 50,000 unit capsule Take 50,000 Units by mouth. 7 Active PANTOPRAZOLE SODIUM 40 MG PO TBEC 7 Active albuterol sulfate HFA 90 mcg/actuation aerosol inhaler Take 2 Puffs by inhalation every 6 hours as needed for Shortness of Breath. 7 Active triamcinolone acetonide (KENALOG) 0.1 % Cream Apply to affected area 2 times daily. 7 Active atorvastatin (LIPITOR) 10 mg tablet Take 10 mg by mouth late in the day. 7 Active trandolapril/shad apamil HCl (TRANDOLAPRIL-VE RAPAMIL ORAL) Take by mouth. A ctive ISOSORBIDE MONONITRATE ORAL Take by mouth. Active propranolol HCl (PROPRANOLOL ORAL) Take by mouth. Activ e rivaroxaban (XARELTO ORAL) Take by mouth. Active ASCORBIC ACID, VITAMIN C, ORAL Take by mouth. Active Bacillus coagulans (PROBIOTIC, B. COAGULANS, ORAL) Take by mouth. Active methenamine hippurate (HIPREX) 1 gram Tablet Take 1 Gram by mouth 2 times daily. 3 Active ondansetron (ZOFRAN ODT) 4 mg Tablet, Rapid Dissolve Take 1 Tablet (4 mg) by mouth every 8 hours as needed for Nausea/Emesis. Dissolve tablet on top of tongue, then swallow with saliva. 12 Tablet 4 Active nitroglycerin (NITROSTAT) 0.4 mg Tablet, Sublingual Q5M 2 Active diabetic shoes with inserts .MEDSUPPLY 2 Active MAGNESIUM HYDROXIDE ORAL Bedtime 3 Active trospium (SANCTURA) 20 mg Tablet Take 1 Tablet (20 mg) by mouth daily. 90 Tablet 3 4 Active albuterol (PROVENTIL,MAHENDRA YRIS) 0.63 mg/3 mL Solution for Nebulization Take 0.63 mg by inhalation one time only. Active semaglutide (OZEMPIC SUBCUT) Inject by subcutaneous injection. Once a week Active Active Problems Problem Noted Date Diagnosed Date Acute pain 08/14/2023 Closed fracture of multiple ribs with routine he aling 08/14/2023 Benign hypertension 01/02/2017 Type 2 diabetes mellitus 01/02/2017 Hx of hyperlipidemia 01/02/2017 GERD (gastroesophageal reflux disease) 7 Mild intermittent asthma without complication Food allergy 01/02/2017 Overview (10/22/2020): IgE to Alpha gal Encounters Date Type Department Care Team Description 01/08/2025 External Device Data [facility] ABSTRACTION Provider, Abstract 12/30/2024 10:00 AM CDT Video Visit [facility] Gastroenterology- [address] [place] [address] Cynthia Penny PA-C Allergy to alpha-gal (Primary Dx); History of diverticulitis; Gastroesophageal reflux disease, unspecified whether esophagitis present; Constipation, unspecified constipation type 11/14/2024 External Device Data [facility]STRACTION Provider, Abstract 11/13/2024 External Device Data [facility] ABSTRACTION Provider, Abstract 11/12/2024 External Device Data [facility] ABSTRACTION Provider, Abstract from Last 3 Months Family History Medical History Relation Name Comments Colon Cancer Neg Hx Social History Tobacco Use Types Packs/Day Years Used Date Smoking Tobacco: Former Cigarettes Tobacco Cessation:Counseling Given: Not Answered Alcohol Use Standard Drinks/Week Comments Not Currently 0 (1 standard drink = 0.6 oz pur e alcohol) Comments No Sex and Gender Information Value Date Recorded Sex Assigned at Not on file 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 Gender Identity Not on file Sexual Orientation Not on file Last Filed Vital Signs Vital Sign Reading Time Taken Comments Blood Pressure 128/82 05/13/2024 1:04 PM GRADES 9 12 TUTOR Pulse 78 05/13/2024 1:04 PM GRADES 9 12 TUTOR Temperature 36.6 C (97.8 F) 08/05/2023 12:51 PM GRADES 9 12 TUTOR Respiratory Rate 14 05/13/2024 1:04 PM GRADES 9 12 TUTOR Oxygen Saturation 91% 05/13/2024 1:04 PM GRADES 9 12 TUTOR Inhaled Oxygen Concentration - - Weight 97.5 kg (215 lb) 12/30/2024 9:51 AM CDT Height 160 cm (5' 3 ) 12/30/2024 9:51 AM CDT Body Mass Index 38.09 12/30/2024 9:51 AM CDT Plan of Treatment Health Maintenance Due Date Last Done Comments DIABETES ANNUAL FOOT EXAM 1964 DIABETES ANNUAL RETINAL EXAM 1964 DIABETES HBA1C Q 6 MONTHS 1964 DIABETES MICROALBUMIN ANNUAL SCREEN 1964 LDL CHOLESTEROL ANNUAL 1964 DTAP/TDAP/TD VACCINES (1 - Tdap) 1965 PNEUMOCOCCAL VACCINE 50+ YEA RS (1 of 2 - PCV) 1965 ZOSTER VACCINE (1 of 2) 1996 OSTEOPOROSIS SCREENING 09/10/2011 RSV VACCINE (60+ or ) (1 - 1-dose 75+ series) 2021 COVID-19 Vaccine (2023-2 5 season) 2024 05/23/2023, 04/05/2022, 10/01/2021, Additional history exists INFLUENZA VACCINE (#1) 2025 COLORECTAL SCREENING 05/13/2027 05/13/2024, 05/13/2024, 10/20/2023, Additional history exists Medical Devices Implanted Type Area Allergist Immunologist Device Identifier Shelf Expiration Date Model / Serial / Lot Clip Endo Resolution 360 235cm [id number] - [id number] Implanted:Qty: 4 on 10/20/2023 by Arun Webster MD at [facility] [employer] [id number] / / Description:3 at 80 cm 1 at 4 Procedures Procedure Name Priority Date/Time Associated Diagnosis Comments COLONOSCOPY REPORT 05/13/2024 12 :51 PM GRADES 9 12 TUTOR from Last 3 Months or Most Recently Relevant to Health Maintenance Results * COLONOSCOPY REPORT (05/13/2024 12:51 PM GRADES 9 12 TUTOR) Narrative Procedure Note Arun Webster MD - 05/13/2024 12:50 PM CST [facility] GI Patient Name: Haily Sam Procedure Date: 05/13/2024 Date of : 1945 Admit Type: Outpatient Age: 78 Attending MD: Arun Webster MD, Procedure: Colonoscopy Indications: Hx of polyps Providers: Arun Webster MD Referring MD: Arun Webster MD Medicines: Fentanyl 125 micrograms IV, Midazolam 6 mg IV Complications: No immediate complications. Estimated blood loss: Minimal. Procedure: Pre-Anesthesia Assessment: - Distant Protocol: - Pre-procedure Verification: Prior to the procedure, the patient's identity was verified by full name and date of . The patient's identity was verified on all pertinent medical records, including History and Physical. Also prior to the procedure, a History and Physical was performed, and patient medications, allergies and sensitivities were reviewed. The patient's tolerance of previous anesthesia was reviewed. The patient is competent. The risks and benefits of the procedure and the sedation options and risks were discussed with the patient. All questions were answered and informed consent was obtained. - Marking: The endoscopic procedure was visually marked on a patient wrist band delineating the patient name, proposed procedure and endoscopist's initials. - Time-Out: Prior to the start of the procedure, the patient's identification, proposed procedure, accurate signed consent, correctly labeled images and records, and need for prophylactic antibiotics were verified by the physician, the nurse and the r&d lab technician in the endoscopy suite. - Prior to the procedure, a History and Physical was performed, and patient medications, allergies and sensitivities were reviewed. The patient's tolerance of previous anesthesia was reviewed. - The risks and benefits of the procedure and the sedation options and risks were discussed with the patient. All questions were answered and informed consent was obtained. - ASA Grade Assessment: III - A patient with severe systemic disease. After I obtained informed consent, the scope was passed under direct vision. Throughout the procedure, the patient's blood pressure, pulse, and oxygen saturations were monitored continuously. The Colonoscope was introduced through the anus and advanced to the cecum, identified by appendiceal orifice and ileocecal valve. The colonoscopy was performed without difficulty. The patient tolerated the procedure well. The quality of the bowel preparation was good. The ileocecal valve, appendiceal orifice, and rectum were photographed. Estimated Blood Loss: Estimated blood loss was minimal. Findings: The perianal and digital rectal examinations were normal. Non-bleeding internal hemorrhoids were found during retroflexion. Multiple large-mouthed and small-mouthed diverticula were found in the left colon. Three sessile polyps were found in the transverse colon. The polyps were 5 to 6 mm in size. These polyps were removed with a cold snare. Resection and retrieval were complete. Verification of patient identification for the specimen was done. Estimated blood loss was minimal. A tattoo was seen in the transverse colon. Moderate Sedation: Moderate (conscious) sedation was administered by the nurse and supervised by the endoscopist. The following parameters were monitored: oxygen saturation, heart rate, blood pressure, and response to care. Total physician intraservice time was 23 minutes. Impression: - Non-bleeding internal hemorrhoids. - Diverticulosis in the left colon. - Three 5 to 6 mm polyps in the transverse colon, removed with a cold snare. Resected and retrieved. - A tattoo was seen in the transverse colon. Recommendation: - Discharge patient to home. - Patient has a contact number available for emergencies. The signs and symptoms of potential delayed complications were discussed with the patient. Return to normal activities tomorrow. Written discharge instructions were provided to the patient. - High fiber diet. - Continue present medications. - Await pathology results. - Repeat colonoscopy in 3 years due to preliminary polyp findings, but could be sooner based on final pathology results. - Return to GI clinic as previously scheduled. - Return to primary care physician after studies are complete. Arun Webster MD 05/13/2024 12:50:55 PM This report has been signed electronically. Number of Addenda: 0 Note Initiated On: 05/13/2024 12:21 PM Scope Withdrawal Time 0 hours 10 minutes 26 seconds Scope In: 12:27:49 PM Scope Out: 12:47:08 PM [address] [place], [place] Arun Webster MD GI PROCEDURE ORDERABLES Migdalia l Result from Last 3 Months or Most Recently Relevant to Health Maintenance Insurance MEDICARE PART A AND B [facility] MEDICARE PART A AND B Advance Directives For more information, please contact: [phone] * Full Code (Latest Code Status on File) Date Activated Date Inactivated Comments 05/13/2024 11:43 AM 05/13/2024 3:21 PM * Full Code Date Activated Date Inactivated Comments 10/20/2023 10:19 AM 10/20/2023 2:28 PM Care Teams Complaint Operator Relationship Specialty Start Date End Date Morteza Valles DO [address] [place] [address] PCP - General Specialist 02/03/17
--- OUTSIDE RECORDS SUMMARY | 2025-01-10 07:35 | XMS_ITS | Encounter Summary ---
Author Organization [facility] Address [address] [place] [address] Care Team Providers Care Senior Front End Engineer Name Role Phone Morteza Valles DO Primary Care Provider [phone] Encounter Details Date Type Department Care Team (Late st Contact Info) Description 01/08/2025 External Device Data [facility] ABSTRACTION Provider, Abstract NO ADDRESS ON FILE Social History Tobacco Use Types Packs/Day Years Used Date Smoking Tobacco: Former Cigarettes Alcohol Use Standard Drinks/Week Comments Not Currently 0 (1 standard drink = 0.6 oz pur e alcohol) Comments No Sex and Gender Information Value Date Recorded Sex Assigned at Not on file 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
--- OUTSIDE RECORDS SUMMARY | 2025-01-10 07:35 | XMS_ITS | Clinical Summary ---
Author Organization [facility] [place] Address [address] [place] [address] Phone Care Team Providers Care Doctor Of Nurse Anesthesia Name Role Phone Morteza Valles Primary Care Provider [phone] Medications NIFEdipine (ADALAT CC) 60 mg Extended Release tablet Take 60 mg by mouth daily. Active metFORMIN (GLUCOPHAGE) 500 mg tablet Take 500 mg by mouth 2 times daily with meals. Active PANTOPRAZOLE SODIUM 40 MG PO TBEC Active atorvastatin (LIPITOR) 10 mg tablet Take 10 mg by mouth late in the day. Active ergocalciferol (VITAMIN D2) 50,000 unit capsule Take 50,000 Units by mouth. Active albuterol HFA 90 mcg inhaler Take 2 Puffs by inhalation every 6 hours as needed for Shortness of Breath. Active aspirin (MOISES CHEWABLE) 81 mg Tablet, Chewable Take 81 mg by mouth daily. Active triamcinolone acetonide (KENALOG) 0.1 % Cream Apply to affected area 2 times daily. 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 Social History Tobacco Use Types Packs/Day Years Used Date Smoking Tobacco: Never Comments Unknown Sex and Gender Information Value Date Recorded Sex Assigned at Not on file Legal Sex Female 2:21 PM CDT Gender Identity Not on file Sexual Orientation Not on file Last Filed Vital Signs Vital Sign Reading Time Taken Comments Blood Pressure 132/75 01/02/2017 1:09 PM CDT Pulse - - Temperature - - Respiratory Rate - - Oxygen Saturation - - Inhaled Oxygen Concentration - - Weight 93 kg (205 lb) 01/02/2017 1:09 PM CDT Height 162.6 cm (5' 4 ) 01/02/2017 1:09 PM CDT Body Mass Index 35.19 01/02/2017 1:09 PM CDT Plan of Treatment Health Maintenance Due Date Last Done Comments DIABETES ANNUAL FOOT EXAM 1964 DIABETES ANNUAL RETINAL EXAM 1964 DIABETES HBA1C Q 6 MONTHS 1964 DIABETES MICROALBUMIN ANNUAL SCREEN 1964 LDL CHOLESTEROL ANNUAL 1964 DTAP/TDAP/TD VACCINES (1 - Tdap) 1965 PNEUMOCOCCAL VACCINE 50+ YEARS (1 of 2 - PCV) 09/09/18 66 ZOSTER VACCINE (1 of 2) 1996 OSTEOPOROSIS SCREENING 09/10/2011 RSV VACCINE (60+ or ) (1 - 1-dose 75+ series) 2021 INFLUENZA VACCINE (#1) 2025 Insurance MEDICARE PART A AND B [facility] Care Teams Doctor Of Nurse Anesthesia Relationship Specialty Start Date End Date Morteza Valles DO [address] [place] [address] PCP - General Specialist 02/03/17
--- NOTE | 2025-01-10 07:36 | XR_ITS ---
WS: [id number] XR chest 1V portable [id number] REASON FOR EXAM: chest pain FINDINGS: Mild to moderate tortuosity of the thoracic aorta. Heart size within normal limits. Calcified granulomatous disease bilaterally. No acute pulmonary parenchymal or pleural disease. Moderate degenerative spondylosis in the thoracic spine. XR/XR chest 1V portable [id number] IMPRESSION: No acute chest abnormality.
--- NOTE | 2025-01-10 07:36 | ECG_ITS ---
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 Measurements Intervals [place] Rate: 79 P: 40 CA: 199 QRS: -2 QRSD: 137 T: 0 QT: 387 QTc: 444 Interpretive Statements SINUS RHYTHM INTRAVENTRICULAR CONDUCTION DELAY [130+ ms QRS DURATION] Compared to ECG 02/05/2023 08:50:58 Intraventricular conduction delay now present Right bundle-branch block no longer present Myocardial infarct finding no longer present Electronically Signed On 01-11-2025 14:11:05 CDT by Candis Louise M.D. [email or web address] [id number]
--- NOTE | 2025-01-10 07:39 | ED_ITS ---
HPI - Chest Pain 2 General: Chief Complaint: Chest Pain Stated Complaint: chest pain Time Seen by Provider: 01/10/25 07:36 History of Present Illness: 79-year-old female presents emergency ro om with chief complaint of chest pain. Patient states she woke up around 4 AM this morning had chest discomfort she rated about a 7 today I have had. She was slightly dyspneic but did not develop any diaphoresis. She eventually called EMS on arrival EMS gave sublingual nitro which improved her chest discomfort she is now rating it at 2 out of 10. She has no known history of coronary disease. Initial EKG does not show any change from previous EKGs. Associated symptoms: Deny abdominal pain, dyspnea or fever(s) Related Data Home Medications ?Medication ?Instructions ?Recorded ?Confirmed vit no.95-ferrous 1 tab PO DAILY 10/26/22 fumarate 28 mg-folic acid 800 mcg tablet ( Multivitamins) magnesium hydroxide 400 mg/5 mL 15 ml PO BEDTIME PRN C onstipation 10/31/22 01/10/25 oral suspension (Miller Milk of Magnesia) Previous Rx's ?Medication ?Instructions ?Recorded diabetic shoes #1 ea 04/08/22 ascorbic acid (vitamin C) 1,000 mg 1 g PO BID #60 tabs 03/27/23 tablet calcium 500 mg (as 1 tab PO .2 times day #180 t abs 10/04/23 carbonate)-vitamin D3 15 mcg (600 unit) tablet (Os-Noble 500 + D3) verapamil 180 mg tablet,extended 180 mg PO DAILY #90 t abs 04/11/24 release albuterol sulfate 90 mcg/actuation 2 puff inhalation Q 6H PRN 11/20/24 aerosol inhaler shortness of breath or wheez ing #25.5 grams atorvastatin 10 mg tablet 10 mg PO DAILY #90 tabs 10/25 02/17 cholecalciferol (vitamin D3) 125 125 mcg PO DAILY #30 caps 11/20/24 mcg (5,000 unit) capsule epinephrine 0.3 mg/0.3 mL 0.3 mg (0.3 mL) IM Q10M PRN 11/20/24 injection, auto-injector (EpiPen anaphylaxis #2 ea 2-Vidal) ibandronate 150 mg tablet 150 mg PO .monthly #3 tabs 0 11/20/24 magnesium oxide 800 mg (2 x 400 mg magnesium ) PO 11/20/24 .at bedtime #180 tabs methenamine hippurate 1 gram tablet 1 g PO BID #180 ta bs 11/20/24 nitroglycerin 0.4 mg sublingual 0.4 mg sublingual Q5M PRN chest 11/20/24 tablet (Nitrostat) pain 30 days #25 tabs pantoprazole 40 mg tablet,delayed 40 mg PO DAILY PRN a renata reflux 90 11/20/24 release days #90 tabs semaglutide 0.25 mg or 0.5 mg (2 0.5 mg (0.736 mL) SUB CUT .weekly 11/20/24 mg/3 mL) subcutaneous pen injector #9 mL (Ozempic) sucralfate 1 gram tablet (Carafate) 1 g PO TID 90 days #270 tabs 11/20/24 Allergies Allergy/AdvReac Type Severity Reaction Status Date / Time ciprofloxacin (From Cipro) Allergy Severe ALGY-Rash Verified 12/06/24 21:39 gelatin Allergy Unknown Alpha Gal Verified 12/06/24 21:39 Syndrome solifenacin (From Vesicare) Allergy Unknown Unknown Verified 12/06/24 21:39 sulfamethoxazole (From Allergy Unknown Unknown Verified 12/06/24 21:39 Bactrim) trimethoprim (From Bactrim) Allergy Unknown Unknown Verified 12/06/24 21:39 Alpha-Gal Allergy ALGY-Difficulty Verified 01/10/25 14:29 (Vwjmbvayq-Fggov-7,3-Gala Breathing Beef Containing Products Allergy Unknown Verified 12/06/24 21:39 Pork/Porcine Containing Allergy Unknown Verified 12/06/24 21:39 Products lisinopril (From Zestril) AdvReac Severe ADR-Cough Verified 12/06/24 21:39 Review of Systems 2 Const: Denies: fever(s) or chills Card: Reports: chest pain Resp: Denies: dyspnea GI: Denies: abdominal pain : Denies: dysuria, urinary frequency or urinary urgency Musc: Denies: neck pain or back pain Skin/Breast: Denies: rash PFSH ED 2 PFSH: Medical History Renal cyst, right Essential hypertension Tachycardia Gastric reflux Allergy to alpha-gal Asthma Chronic constipation Diverticulosis Controlled diabetes mellitus with hyperglycemia, without long-term current use of insulin Surgical History History of esophagogastroduodenoscopy (EGD) S/P cataract surgery History of tubal ligation History of colonoscopy 2012 & 2023 Family History Other Cancer Diabetes Stroke Denies family history of Bleeding disorder Social History Smoking and tobacco/nicotine status: former use of tobacco/nicotine Second hand smoke exposure: No Alcohol intake: never Substance/Drug Use: never Adopted: No Caregiver/support person: No Lives independently: Yes Household members: spouse Housing: House Marital status: service: No Current occupational status: retired Do you think of yourself as: Straight/Heterosexual Current gender identity: Female Physical Exam 2 Const: GENERAL APPEARANCE: cooperative ORIENTATION/CONSCIOUSNESS: Yes awake, Yes oriented to person, Yes oriented to place and Yes oriented to time HENMT: COMMON NORMALS: normocephalic, atraumatic and hearing grossly normal bilaterally HEAD & SCALP: normocephalic and atraumatic Resp: COMMON NORMALS: normal respiratory effort, No retractions, No use of accessory muscles and clear to auscultation bilaterally AUSCULTATION: clear to auscultation bilaterally Cardio: COMMON NORMALS: regular rate, regular rhythm and No murmurs present (Cardio) RATE: regular rate RHYTHM: regular rhythm GI: COMMON NORMALS: Soft to palpation and No hepatosplenomegaly present A USCULTATION: Yes normoactive bowel sounds PALPATION: Yes Soft to palpation, No Tenderness to palpation present (GI), No Guarding due to palpation present (GI) and Yes No hepatosplenomegaly present Extremity: COMMON NORMALS: normal to inspection, capillary refill normal, no clubbing, cyanosis or edema, no calf tenderness and no pedal edema Neuro: SENSORIUM/ORIENTATION: Yes oriented to person, Yes oriented to place and Yes oriented to time Skin: COMMON NORMALS: no rashes or lesions noted GENERAL SKIN EXAM: no rashes or lesions noted Course 2 Vital Signs: Vital signs: Vital Signs Temperature 97.6 F 01/10/25 13:32 Pulse Rate 81 01/10/25 13:32 Respiratory Rate 16 01/10/25 13:32 Blood Pressure 156/90 01/10/25 13:32 Pulse Oximetry 95 01/10/25 13:32 Oxygen Delivery Me thod Room Air 01/10/25 13:32 MDM - Chest Pain Medical Decision Making Cardiac enzymes were negative however he patient did have full relief of her chest discomfort with nitro concerning given her risk factors age diabetes hypertension. She did have a cardiac stress test in 2020 which was negative. Discussed with hospitalist and on-call wire weaver cloth will place on observation orders written Medical Records I reviewed the patient's medical records. Lab Data I reviewed the patient's lab results. 01/10/25 07:49 01/10/25 07:49 Radiology Impressions Chest X-Ray 01/10/25 07:36 IMPRESSION: No acute chest abnormality. Laboratory Results WBC 6.05 10^3/uL (3.29-11.43) 01/10/25 07:49 RBC 4.85 10^6/uL (3.85-5.65) 01/10/25 07:49 Hgb 14.50 g/dL (11.27-16.99) 01/10/25 07:49 Hct 45.5 % (36-47) 01/10/25 07:49 MCV 93.8 fl (85-98) 01/10/25 07:49 MCH 29.9 pg (27-33) 01/10/25 07:49 MCHC 31.9 g/dL (30-55) 01/10/25 07:49 RDW 12.8 % (12.1-15.1) 01/10/25 07:49 Plt Count 172 10^3/cmm (157-399) 01/10/25 07:49 MPV 11.0 fL (7.4-10.4) H 01/10/25 07:49 Neut % (Auto) 58.1 % 01/10/25 07:49 Lymph % (Auto) 30.9 % 01/10/25 07:49 [place] % (Auto) 5.5 % 01/10/25 07:49 Eos % (Auto) 4.3 % 01/10/25 07:49 Baso % (Auto) 1.0 % 01/10/25 07:49 Neut # (Auto) 3.52 10^3/uL (1.8-7.7) 01/10/25 07:49 Lymph # (Auto) 1.9 10^3/uL (0.8-4.8) 01/10/25 07:49 [place] # (Auto) 0.3 10^3/uL (0.2-0.9) 01/10/25 07:49 Eos # (Auto) 0.3 10^3/uL (0.0-0.8) 01/10/25 07:49 Baso # (Auto) 0.1 10^3/uL (0.0-0.1) 01/10/25 07:49 Nucleated RBC % (auto) 0 % 01/10/25 07:49 Nucleated RBCs # 0.0 /100WBC 01/10/25 07:49 Sodium 139 mmol/L (136-145) 01/10/25 07:49 Potassium 4.0 mmol/L (3.5-5.1) 01/10/25 07:49 Chloride 99 mmol/L (98-107) 01/10/25 07:49 Carbon Dioxide 27 mmol/L (22-29) 01/10/25 07:49 Anion Gap 17.0 (5-19) 01/10/25 07:49 BUN 15 mg/dL (8-23) 01/10/25 07:49 Creatinine 1.0 mg/dL (0.5-0.9) H 01/10/25 07:49 GFR Calculation Not Reportable 01/10/25 07:49 Glucose 120 mg/dL (65-115) H 01/10/25 07:49 Calculated Osmolality 290 mOsm/kg (285-295) 01/10/25 07:49 Calcium 9.6 mg/dL (8.5-10.5) 01/10/25 07:49 Total Bilirubin 0.4 mg/dL (0.15-1.2) 01/10/25 07:49 AST 25 U/L (0-32) 01/10/25 07:49 ALT 27 U/L (0-33) 01/10/25 07:49 Alkaline Phosphatase 70 U/L (35-105) 01/10/25 07:49 Troponin T Baseline < 6 ng/L (0-10) 01/10/25 07:49 Troponin T 120 Minute < 6.0 ng/L (0-10) 01/10/25 09:58 Delta Troponin T 0 ABS# (0-10) 01/10/25 09:58 Total Protein 6.6 g/dL (6.6-8.7) 01/10/25 07:49 Albumin 3.9 g/dL (3.5-5.2) 01/10/25 07:49 Globulin 2.7 g/dL (1.3-4.6) 01/10/25 07:49 All radiology interpretation(s) finalized by discharge Discharge Plan Discharge Patient Disposition: Admitted As Inpatient Admit Provider: Vipul Gaxiola Clinical Impression: Unstable angina pectoris, Controlled diabetes mellitus with hyperglycemia, without long-term current use of insulin Condition: Stable Coding Level of Care Code ED Performance Improvement Analyst for Hannah Renteria
[2025-01-10 07:54] LABS: Hematocrit 45.5 % (36-47); Hemoglobin 14.50 g/dL (11.27-16.99); Mean Corpuscular HGB Conc 31.9 g/dL (30-55); Mean Corpuscular Hemoglobin 29.9 pg (27-33); Mean Corpuscular Volume 93.8 fl (85-98); Nucleated Red Blood Cells % 0 %; Platelet Count 172 10^3/cmm (157-399); Red Blood Count 4.85 10^6/uL (3.85-5.65); White Blood Count 6.05 10^3/uL (3.29-11.43)
[2025-01-10 08:12] LABS: Alanine Aminotransferase 27 U/L (0-33); Albumin Level 3.9 g/dL (3.5-5.2); Alkaline Phosphatase 70 U/L (35-105); Aspartate Amino Transferase 25 U/L (0-32); Blood Urea Nitrogen 15 mg/dL (8-23); Calcium 9.6 mg/dL (8.5-10.5); Carbon Dioxide 27 mmol/L (22-29); Chloride 99 mmol/L (98-107); Creatinine Clr Calc Pharmacy 52.1765; Globulin 2.7 g/dL (1.3-4.6); Glucose 120 mg/dL (65-115); Osmolality Calculated 290 mOsm/kg (285-295); Sodium 139 mmol/L (136-145); Total Protein 6.6 g/dL (6.6-8.7)
[2025-01-10 08:13] LABS: Troponin(5th) Baseline < 6 ng/L (0-10)
[2025-01-10 08:16] LABS: Anion Gap 17.0 (5-19); Potassium 4.0 mmol/L (3.5-5.1)
--- NOTE | 2025-01-10 08:28 | ECG_ITS ---
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1945 Requested By: Griffin Gill Order Number: [id number] Reading MD: XOCHILT VALLES Measurements Intervals [place] Rate: 70 P: 46 ME: 202 QRS: -14 QRSD: 134 T: 7 QT: 405 QTc: 439 Interpretive Statements SINUS RHYTHM INTRAVENTRICULAR CONDUCTION DELAY [130+ ms QRS DURATION] INFERIOR MYOCARDIAL INFARCTION , PROBABLY OLD [40+ ms Q WAVE AND/OR ST/T ABNORMALITY IN II/aVF] Compared to ECG 01/10/2025 07:31:34 Myocardial infarct finding now present Electronically Signed On 01-11-2025 16:11:24 CDT by XOCHILT VALLES [id number] [id number]
--- NOTE | 2025-01-10 09:43 | PC.PHAR ---
Pt fills via mail order [facility] [phone]. Pharmacist verified current pt medications and gave last fill date and day supply. Older medications removed from chart are: Isosorbide Mononitrate 30mg bid Meoprolol Succ. 25mg ER qpm Xarelto 20mg qhs Budesonide 0.5mg/2ml daily prn Ipratripium-albuterol 0.5mg/3mg 3ml bid prn
[2025-01-10 10:38] LABS: Troponin 5 2HR < 6.0 ng/L (0-10); Troponin 5 2HR Delta 0 ABS# (0-10)
--- NOTE | 2025-01-10 13:36 | ECG_ITS ---
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1945 Requested By: Griffin Gill Order Number: [id number] Reading MD: XOCHILT VALLES Measurements Intervals [place] Rate: 75 P: 42 WA: 192 QRS: -3 QRSD: 137 T: -14 QT: 399 QTc: 448 Interpretive Statements SINUS RHYTHM WITH OCCASIONAL VENTRICULAR PREMATURE COMPLEXES INTRAVENTRICULAR CONDUCTION DELAY [130+ ms QRS DURATION] Compared to ECG 01/10/2025 08:28:42 Ventricular premature complex(es) now present Myocardial infarct finding no longer present Electronically Signed On 01-11-2025 16:10:52 CDT by XOCHILT VALLES [id number] [id number]
[2025-01-10 15:49] LABS: Troponin 5 6HR < 6.0 ng/L (0-10); Troponin 5 6HR Delta 0 ng/L (0-12)
--- NOTE | 2025-01-10 16:10 | P.CONIM_ITS ---
Providers/Reason For Consult 2 Consulting Physician/Specialty*: KEVAN Louise MD/cardiology Reason for Consult*: Patient presented to episode of chest pain Attending Physician: Vipul Gaxiola MD Primary Care Provider: LORI Benson History of Present Illness History of Present Illness Haily Sam is a 79 year old female is a 79-year-old white female with a history of hypertension, dyslipidemia and a longstanding history of chest pain, had another prolonged episode of chest pain early this morning. She is admitted to hospital for further evaluation and management. This patient apparently has been in her baseline state of health up until this morning around 430 when she started having some chest pain. Thinking that the pain may be related to some acid reflux, she took a Protonix and went back to bed. Around 6 AM, again she woke up with pain in the lower substernal region. This time, she took her 1 sublingual nitro. After 5 minutes or so, the pain subsided. She had the recurrence of chest pain after 5 minutes or so.. She took a second nitro at that time. She felt better for a while and the pain again came back after 5 minutes. This time she took the third nitroglycerin. Because of this recurrent episodes of chest pain requiring 3 sublingual nitro she was brought to the emergency room by her . On the way to the emergency room, she was given aspirin, sublingual nitro by the ambulance crew. Most of the pain was gone by the time she reached the emergency room. She had the pain lasting for a total of 2 hours with waxing and waning. She has no other associated symptoms or radiation of pain. This patient has a history of chest pain off and on for the last more than 30 years. She had at least a one cardiac catheterization and multiple Myocardial perfusion imagings in the past. She had the cardiac catheterization in 1993 in [place]. She was told to have no blockages at that time. She had a stress test in [place] which was unremarkable. She had last stress test in our hospital, in 2020 which also was unremarkable. She has a history of esophageal stricture? For which she underwent dilatation in the past. Has a history of acid reflux disease/Hernandez's esophagus and is on Protonix. She also has a history of multiple TIAs. Review of Systems 2 Narrative: CONSTITUTIONAL: No fever or chills. EYES: No blurring of vision or other visual disturbances lately. ENT: No hoarseness of voice, auditory disturbances or sore throat. CARDIOVASCULAR: As mentioned above. RESPIRATORY: No significant cough. GASTROINTESTINAL: No hematemesis or melena. GENITOURINARY: No dysuria or hematuria. INTEGUMENTARY: No skin rashes or history of skin cancer. NEURO: No transient ischemic attacks or amaurosis. PSYCHIATRIC: No history of psychosis or major depression. HEMATOLOGIC: No bleeding disorders or significant anemia. ENDOCRINE: No history of polyuria or polydipsia. MUSCULOSKELETAL: No recent joint pain or swelling. ALLERGY/IMMUNOLOGY: As mentioned above. Medications/Allergies Home Medications ?Medication ?Instructions ?Recorded ?Confirmed ?Last Taken ?Type diabetic shoes #1 ea 04/08/22 01/10/25 Unkn own Rx vit no.95-ferrous 1 tab PO DAILY 10/26/2201/09/25 History fumarate 28 mg-folic acid 800 mcg tablet ( Multivitamins) magnesium hydroxide 400 mg/5 mL 15 ml PO BEDTIME PRN C onstipation 10/31/22 01/10/25 1 Week Ago History oral suspension (Miller Milk of ~ Magnesia) ascorbic acid (vitamin C) 1,000 mg 1 g PO BID #60 tabs 03/27/23 01/10/25 01/09/25 Rx tablet calcium 500 mg (as 1 tab PO .2 times day #180 t abs 10/04/23 01/10/25 01/09/25 Rx carbonate)-vitamin D3 15 mcg (600 unit) tablet (Os-Noble 500 + D3) verapamil 180 mg tablet,extended 180 mg PO DAILY #90 t abs 04/11/24 01/10/25 01/09/25 Rx release albuterol sulfate 90 mcg/actuation 2 puff inhalation Q 6H PRN 11/20/24 01/10/25 Unknown Rx aerosol inhaler shortness of breath or wheez ing #25.5 grams atorvastatin 10 mg tablet 10 mg PO DAILY #90 tabs 10/2501/10/25 01/09/25 Rx cholecalciferol (vitamin D3) 125 125 mcg PO DAILY #30 caps 11/20/24 01/10/25 01/09/25 Rx mcg (5,000 unit) capsule epinephrine 0.3 mg/0.3 mL 0.3 mg (0.3 mL) IM Q10M PRN 11/20/24 01/10/25 Unknown Rx injection, auto-injector (EpiPen anaphylaxis #2 ea 2-Vidal) ibandronate 150 mg tablet 150 mg PO .monthly #3 tabs 0 11/20/24 01/10/25 12/31/24 Rx magnesium oxide 800 mg (2 x 400 mg magnesium ) PO 11/20/24 01/10/25 01/09/25 Rx .at bedtime #180 tabs methenamine hippurate 1 gram tablet 1 g PO BID #180 ta bs 11/20/24 01/10/25 01/09/25 Rx nitroglycerin 0.4 mg sublingual 0.4 mg sublingual Q5M PRN chest 11/20/24 01/10/25 Unknown Rx tablet (Nitrostat) pain 30 days #25 tabs semaglutide 0.25 mg or 0.5 mg (2 0.5 mg (0.736 mL) SUB CUT .weekly 11/20/24 01/10/25 Unknown Rx mg/3 mL) subcutaneous pen injector #9 mL (Ozempic) sucralfate 1 gram tablet (Carafate) 1 g PO TID 90 days #270 tabs 11/20/24 01/10/25 01/09/25 Rx docusate sodium 100 mg capsule 100 mg PO BID #60 caps 01/11/25 Unknown Rx lactulose 10 gram/15 mL oral 10 g (15 mL) PO DAILY PRN 01/11/25 Unknown Rx solution Constipation (see protocol) #300 mL losartan 50 mg tablet 50 mg PO DAILY #30 tabs 12/24 03/20 Unknown Rx pantoprazole 40 mg tablet,delayed 40 mg PO BIDWM acid reflux 90 days 01/11/25 Unknown Rx release #90 tabs Allergies Allergy/AdvReac Type Severity Reaction Status Date / Time ciprofloxacin (From Cipro) Allergy Severe ALGY-Rash Verified 12/06/24 21:39 gelatin Allergy Unknown Alpha Gal Verified 12/06/24 21:39 Syndrome solifenacin (From Vesicare) Allergy Unknown Unknown Verified 12/06/24 21:39 sulfamethoxazole (From Allergy Unknown Unknown Verified 12/06/24 21:39 Bactrim) trimethoprim (From Bactrim) Allergy Unknown Unknown Verified 12/06/24 21:39 Alpha-Gal Allergy ALGY-Difficulty Verified 01/10/25 14:29 (Utrtonwiw-Xdwfp-3,3-Gala Breathing Beef Containing Products Allergy Unknown Verified 12/06/24 21:39 Pork/Porcine Containing Allergy Unknown Verified 12/06/24 21:39 Products lisinopril (From Zestril) AdvReac Severe ADR-Cough Verified 12/06/24 21:39 Current Medications Generic Name Dose Route Start Last Admin Trade Name Sabrina PRN Reason Stop Dose Admin Sodium Chloride 1,000 mls @ 100 mls/hr 01/10/25 12:24 01/10/25 12:54 Sodium Chloride 0.9% IV 100 mls/hr .Q10H ALVAREZ Administration PFSH Acute 2 PFSH: Medical History Renal cyst, right Essential hypertension Tachycardia Gastric reflux Allergy to alpha-gal Asthma Chronic constipation Diverticulosis Controlled diabetes mellitus with hyperglycemia, without long-term current use of insulin Surgical History History of esophagogastroduodenoscopy (EGD) S/P cataract surgery History of tubal ligation History of colonoscopy 2012 & 2023 Family History Other Cancer Diabetes Stroke Denies family history of Bleeding disorder Social History (Updated 01/10/25 @ 16:49 by Vipul Gaxiola MD) Smoking and tobacco/nicotine status: former use of tobacco/nicotine Second hand smoke exposure: No Alcohol intake: never Substance/Drug Use: never Additional social history: Accompanied by Abhay daughter Allison and grandson Alvaro patient wants full code as discussed with Vipul Gaxiola MD on 01/10/2025 Adopted: No Caregiver/support person: No Lives independently: Yes Household members: spouse Housing: House Marital status: Marital status details: to Abhay service: No Current occupational status: retired Previous occupational history: Worked in [place] department for [employer] in [place] Do you think of yourself as: Straight/Heterosexual Current gender identity: Female Vitals/I&O/Wt Last Vital Signs Temp 97.6 F 01/10/25 13:32 Pulse 81 01/10/25 13:32 Resp 16 01/10/25 13:32 BP 156/90 01/10/25 13:32 Pulse Ox 95 01/10/25 13:32 O2 Del Method Room Air 01/10/25 13:32 Weight last 48 hrs Weight 221 lb 3.2 oz Weight 212 lb Physical Exam 2 Narrative: GENERAL: The patient is alert and oriented times three. Not in any acute distress. HEENT: No significant pallor, icterus or lymphadenopathy.Oral cavity: There are no mucous membrane lesions. NECK: Trachea appears to be central. No masses noted. No JVD or thyromegaly appreciated. RESPIRATORY: Chest is symmetrical. No intercostals muscle retraction or any accessory muscle activation. There is no chest wall tenderness. Breath sounds are heard bilaterally. No rales or rhonchi heard. No evidence of any consolidation. BREASTS: Deferred. HEART: The heart sounds are normal. No S3 or S4. No significant murmurs. No pericardial rub ABDOMEN: No vessel pulsations or distention. No tenderness. No organomegaly appreciated. Bowel sounds are normally heard. : Deferred. RECTAL: Deferred. LYMPHATIC: No lymphadenopathy noted in the neck. EXTREMITIES: No edema or cyanosis. No clubbing. MUSCULOSKELETAL: No acute joint deformities or swelling SKIN: There are no significant rashes or ecchymosis NEUROPSYCHIATRIC: The patient is alert and oriented x3. Appears to be in a good mood. No tremors or rigidity noted. Data 01/10/25 07:49 01/10/25 07:49 Other Labs: Laboratory Last Values WBC 6.05 10^3/uL (3.29-11.43) 01/10/25 07:49 RBC 4.85 10^6/uL (3.85-5.65) 01/10/25 07:49 Hgb 14.50 g/dL (11.27-16.99) 01/10/25 07:49 Hct 45.5 % (36-47) 01/10/25 07:49 MCV 93.8 fl (85-98) 01/10/25 07:49 MCH 29.9 pg (27-33) 01/10/25 07:49 MCHC 31.9 g/dL (30-55) 01/10/25 07:49 RDW 12.8 % (12.1-15.1) 01/10/25 07:49 Plt Count 172 10^3/cmm (157-399) 01/10/25 07:49 MPV 11.0 fL (7.4-10.4) H 01/10/25 07:49 Neut % (Auto) 58.1 % 01/10/25 07:49 Lymph % (Auto) 30.9 % 01/10/25 07:49 Mora % (Auto) 5.5 % 01/10/25 07:49 Eos % (Auto) 4.3 % 01/10/25 07:49 Baso % (Auto) 1.0 % 01/10/25 07:49 Neut # (Auto) 3.52 10^3/uL (1.8-7.7) 01/10/25 07:49 Lymph # (Auto) 1.9 10^3/uL (0.8-4.8) 01/10/25 07:49 Mora # (Auto) 0.3 10^3/uL (0.2-0.9) 01/10/25 07:49 Eos # (Auto) 0.3 10^3/uL (0.0-0.8) 01/10/25 07:49 Baso # (Auto) 0.1 10^3/uL (0.0-0.1) 01/10/25 07:49 Nucleated RBC % (auto) 0 % 01/10/25 07:49 Nucleated RBCs # 0.0 /100WBC 01/10/25 07:49 Sodium 139 mmol/L (136-145) 01/10/25 07:49 Potassium 4.0 mmol/L (3.5-5.1) 01/10/25 07:49 Chloride 99 mmol/L (98-107) 01/10/25 07:49 Carbon Dioxide 27 mmol/L (22-29) 01/10/25 07:49 Anion Gap 17.0 (5-19) 01/10/25 07:49 BUN 15 mg/dL (8-23) 01/10/25 07:49 Creatinine 1.0 mg/dL (0.5-0.9) H 01/10/25 07:49 GFR Calculation Not Reportable 01/10/25 07:49 Glucose 120 mg/dL (65-115) H 01/10/25 07:49 Calculated Osmolality 290 mOsm/kg (285-295) 01/10/25 07:49 Calcium 9.6 mg/dL (8.5-10.5) 01/10/25 07:49 Total Bilirubin 0.4 mg/dL (0.15-1.2) 01/10/25 07:49 AST 25 U/L (0-32) 01/10/25 07:49 ALT 27 U/L (0-33) 01/10/25 07:49 Alkaline Phosphatase 70 U/L (35-105) 01/10/25 07:49 Troponin T Baseline < 6 ng/L (0-10) 01/10/25 07:49 Troponin T 120 Minute < 6.0 ng/L (0-10) 01/10/25 09:58 Delta Troponin T 0 ABS# (0-10) 01/10/25 09:58 Troponin T Hi Sens 6Hr < 6.0 ng/L (0-10) 01/10/25 14:54 Troponin T Hi Sens 6Hr Delta 0 ng/L (0-12) 01/10/25 14:54 Total Protein 6.6 g/dL (6.6-8.7) 01/10/25 07:49 Albumin 3.9 g/dL (3.5-5.2) 01/10/25 07:49 Globulin 2.7 g/dL (1.3-4.6) 01/10/25 07:49 A&P Assessment and plan 1. Unstable angina pectoris: Patient's symptoms may suggest unstable angina. However the EKG has no acute ischemic changes. No enzyme elevation. Hemodynamically she seems to be stable 2. Essential hypertension: Currently the blood pressures are stage II. The antihypertensive medications need to be optimized 3. Tachycardia: She has not had any tachycardic episodes recently. Will continue on the current medications. She has been on verapamil for a long time. This may be continued. 4. Controlled diabetes mellitus with hyperglycemia, without long-term current use of insulin: The blood sugar need to be closely monitored. 5. Gastric reflux: May continue on the Protonix 6. TIA (transient ischemic attack): No history for any recent CVA. 7. Dyslipidemia: Continue on the current management Plan: I will go ahead and do an echocardiogram to evaluate the LV function and to rule out any other pathology If the echocardiogram shows wall motion abnormalities, in view of the multiple risk factors, since she has not had any cardiac catheterization for more than 30 years, it might be appropriate to do an angiogram and decide on further management. Based on the clinical progress and the results of the echo, further recommendations will be made. Thank for the opportunity to evaluate this patient and make this recommendation L PDMP PDMP Reviewed: Not Reviewed Consult Attestations 2 Medical Necessity Statement: Patient requires continued hospital stay for close monitoring and further management Coding Level of Care Code 97439 Diagnoses Unstable angina pectoris I20.0 Essential hypertension I10 Tachycardia R00.0 Controlled diabetes mellitus with hyperglycemia, without long-term current use of insulin E11.65 Gastric reflux K21.9 TIA (transient ischemic attack) G45.9 Dyslipidemia E78.5
--- NOTE | 2025-01-10 16:37 | PM.HP ---
Providers/Chief Complaint Admitting Physician: Vipul Gaxiola MD Primary Care Provider: Samir Kaufman, EPIC WILLOW ANALYST-C Chief Complaint: chest pain History of Present Illness Haily Sam is a 79 year old female with unusual past history of coronary artery disease that she states started 1993 with an MS in [place]. Patient was having chest pain pulled over the rest stop and called 911 she went to the hospital and logistics loss prevention manager did angiogram stated that she had beautiful arteries but that her heart was red and inflamed. I suspicious that he meant the patient had pericarditis. Patient states that another time 1995 she had an MS and blood pressure was very high but then they gave her some shot and she crossed over to the other side meaning she . Sounds like her blood pressure dropped and they did CPR. This morning the patient was anticipating her grandson Alvaro arriving and she was cleaning the house doing some vacuuming and mopping. She felt chest pressure thought it was indigestion she laid down and had chest pressure 7/10 took nitroglycerin and it dropped down to 4/10 but then recurred she came to the emergency department and initial EKG and troponins were normal. She was referred to cardiology Dr. Louise and myself for admission. Patient denies nausea or difficulty breathing she states it felt like heavy pressure in her chest like somebody was taking a break into her sternum she currently has no chest pain. Patient smoked for years at age 31s about 1 pack/week she has bronchial asthma and was on oxygen in [place] but has not needed it here in [place]. She denies asthma as a child but states she had it as an adult. Review of Systems Narrative: General No fevers she does not exactly have chills but she states she gets cold easy she has had 10 pounds weight loss in 2 months with Ozempic looks like 0.5 mg weekly but just prior to that she is the heaviest she has ever been Cardiovascular positive for chest pain today no palpitations or leg edema Respiratory negative for cough she does have wheezing and uses inhaler and nebulizer she does not require O2 at home and does not have it GI note nausea vomiting diarrhea she does have constipation she also had diverticulosis and polyps removed on colonoscopy no dysuria hematuria. 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 Brooks put her on Xarelto and she has not had any further mini strokes. Patient is not aware of having any diagnosis such as atrial fibrillation Malignancy history negative Heme she has never had blood clots in her legs or lungs Medications/Allergies Home Medications ?Medication ?Instructions ?Recorded ?Confirmed ?Last Taken ?Type diabetic shoes #1 ea 04/08/22 01/10/25 Unknown Rx vit no.95-ferrous 1 tab PO DAILY 10/26/22 01/10/25 01/09/25 History fumarate 28 mg-folic acid 800 mcg tablet ( Multivitamins) magnesium hydroxide 400 mg/5 mL 15 ml PO BEDTIME PRN Constipation 10/31/22 01/10/25 1 Week Ago History oral suspension (Miller Milk of ~05/03/23 Magnesia) ascorbic acid (vitamin C) 1,000 mg 1 g PO BID #60 tabs 03/27/23 01/10/25 01/09/25 Rx tablet calcium 500 mg (as 1 tab PO .2 times day #180 tabs 10/04/23 01/10/25 01/09/25 Rx carbonate)-vitamin D3 15 mcg (600 unit) tablet (Os-Noble 500 + D3) verapamil 180 mg tablet,extended 180 mg PO DAILY #90 tabs 04/11/24 01/10/25 01/09/25 Rx release albuterol sulfate 90 mcg/actuation 2 puff inhalation Q6H PRN 11/20/24 01/10/25 Unknown Rx aerosol inhaler shortness of breath or wheezing #25.5 grams atorvastatin 10 mg tablet 10 mg PO DAILY #90 tabs 11/20/24 01/10/25 01/09/25 Rx cholecalciferol (vitamin D3) 125 125 mcg PO DAILY #30 caps 11/20/24 01/10/25 01/09/25 Rx mcg (5,000 unit) capsule epinephrine 0.3 mg/0.3 mL 0.3 mg (0.3 mL) IM Q10M PRN 11/20/24 01/10/25 Unknown Rx injection, auto-injector (EpiPen anaphylaxis #2 ea 2-Vidal) ibandronate 150 mg tablet 150 mg PO .monthly #3 tabs 11/20/24 01/10/25 12/31/24 Rx magnesium oxide 800 mg (2 x 400 mg magnesium) PO 11/20/24 01/10/2501/09/25 Rx .at bedtime #180 tabs methenamine hippurate 1 gram tablet 1 g PO BID #180 tabs 11/20/24 01/10/25 01/09/25 Rx nitroglycerin 0.4 mg sublingual 0.4 mg sublingual Q5M PRN chest 11/20/24 01/10/25 Unknown Rx tablet (Nitrostat) pain 30 days #25 tabs pantoprazole 40 mg tablet,delayed 40 mg PO DAILY PRN acid reflux 90 11/20/24 01/10/25 01/10/25 Rx release days #90 tabs semaglutide 0.25 mg or 0.5 mg (2 0.5 mg (0.736 mL) SUBCUT .weekly 11/20/24 01/10/25 Unknown Rx mg/3 mL) subcutaneous pen injector #9 mL (Ozempic) sucralfate 1 gram tablet (Carafate) 1 g PO TID 90 days #270 tabs 11/20/24 01/10/25 01/09/25 Rx Allergies Allergy/AdvReac Type Severity Reaction Status Date / Time ciprofloxacin (From Cipro) Allergy Severe ALGY-Rash Verified 12/06/24 21:39 gelatin Allergy Unknown Alpha Gal Verified 12/06/24 21:39 Syndrome solifenacin (From Vesicare) Allergy Unknown Unknown Verified 12/06/24 21:39 sulfamethoxazole (From Allergy Unknown Unknown Verified 12/06/24 21:39 Bactrim) trimethoprim (From Bactrim) Allergy Unknown Unknown Verified 12/06/24 21:39 Alpha-Gal Allergy ALGY-Difficulty Verified 01/10/25 14:29 (Rkvflfrec-Ngkgr-1,3-Gala Breathing Beef Containing Products Allergy Unknown Verified 12/06/24 21:39 Pork/Porcine Containing Allergy Unknown Verified 12/06/24 21:39 Products lisinopril (From Zestril) AdvReac Severe ADR-Cough Verified 12/06/24 21:39 PFSH Acute PFSH: Medical History Renal cyst, right Essential hypertension Tachycardia Gastric reflux Allergy to alpha-gal Asthma Chronic constipation Diverticulosis Controlled diabetes mellitus with hyperglycemia, without long-term current use of insulin Surgical History History of esophagogastroduodenoscopy (EGD) S/P cataract surgery History of tubal ligation History of colonoscopy 2012 & 2023 Family History Other Cancer Diabetes Stroke Denies family history of Bleeding disorder Social History (Updated 01/10/25 @ 16:49 by Vipul Gaxiola MD) Smoking and tobacco/nicotine status: former use of tobacco/nicotine Second hand smoke exposure: No Alcohol intake: never Substance/Drug Use: never Additional social history: Accompanied by Abhay daughter Allison and grandson Alvaro patient wants full code as discussed with Vipul Gaxiola MD on 01/10/2025 Adopted: No Caregiver/support person: No Lives independently: Yes Household members: spouse Housing: House Marital status: Marital status details: to Abhay service: No Current occupational status: retired Previous occupational history: Worked in [employer] department for [employer] in [place] Do you think of yourself as: Straight/Heterosexual Current gender identity: Female Vitals/I&O/Wt Last Vital Signs Temp 97.8 F 01/10/25 16:20 Pulse 77 01/10/25 16:20 Resp 18 01/10/25 16:20 BP 159/98 01/10/25 16:20 Pulse Ox 92 01/10/25 16:20 O2 Del Method Room Air 01/10/25 16:20 Weight last 48 hrs Weight 100.335 kg Weight 96.162 kg Physical Exam Narrative: General well-developed well-nourished obese female in no acute cardiopulmonary stress Oral Mallampati 2-3 Neck no bruits CV regular rate and rhythm Lungs clear to auscultation bilaterally Abdomen positive epigastric tenderness this is fairly marked no other tenderness and no rebound Calves no tenderness cords pretrip edema Skin warm and dry Mentation alert oriented pleasant Neuro moves all extremities symmetrically she is clear with her speech Data 01/10/25 07:49 01/10/25 07:49 A&P Assessment and plan 1. Hernandez's esophagus: Patient with significant epigastric tenderness which she states does not represent her pain this morning well. She had relief with her chest pain from this morning but it was incomplete and recurred. Continue PPI will give GI cocktail for next episode of chest pain 2. Chest pain: Try GI cocktail first for next episode of chest pain and then nitroglycerin. Cardiac enzymes negative times baseline 2-hour and 6-hour. Given the somewhat atypical nature and negative cardiac enzymes we will discuss with cardiology what the neck step is but stress testing may be most appropriate echocardiogram has been ordered as she has not had one here 3. Essential hypertension: Will treat with beta-piper and add losartan first dose now. Patient is already on verapamil which was continued 4. Controlled diabetes mellitus with hyperglycemia, without long-term current use of insulin: 1500-calorie ADA weight loss diet and sliding scale insulin 5. Gastric reflux: Continue PPI PDMP PDMP Reviewed: Not Reviewed Attestations Medical Necessity Statement*: Patient is placed in the hospital under observation and is suspected to stay 1 to 2 days Coding Level of Care Code Acute Code for Chg Fwd Diagnoses Hernandez's esophagus K22.70 Chest pain R07.9 Essential hypertension I10 Controlled diabetes mellitus with hyperglycemia, without long-term current use of insulin E11.65 Gastric reflux K21.9
[2025-01-11 02:08] VITALS: BP 108/67; PULSE 79; RESP 23; O2SAT 92
[2025-01-11 04:28] VITALS: BP 153/98; PULSE 86; RESP 30
[2025-01-11 04:28] LABS: Cholesterol 152 mg/dL (0-200); HDL Cholesterol 64 mg/dL (60-100); Triglycerides 128 mg/dL (0-150)
[2025-01-11 07:13] VITALS: BP 141/74; PULSE 95; RESP 19; TEMP 36.5; O2SAT 96
--- NOTE | 2025-01-11 08:05 | PM.DCS ---
Discharge Providers Date of Admission: 01/10/25 11:29 Date of Discharge: January 11, 2025 Attending Provider at Admission: Vipul Gaxiola MD Attending Provider at Discharge: Vipul Gaxiola MD Primary Care Provider: LORI Benson Diagnoses at Discharge Discharge Diagnosis 1. 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 She is already on PPI plus Carafate but recently started on Ozempic for weight loss and this can worsen reflux. She had tenderness in the epigastric area and cardiac enzymes were negative x 3 all less than 6 2. Essential hypertension: Details from hospital stay: Additional blood pressure treatment with losartan 50 mg daily. Echo showed moderate LVH consistent with hypertension 3. Controlled type 2 diabetes mellitus with hyperglycemia, without long-term current use of insulin: Details from hospital stay: Blood sugars here ranged from 87-120 and no sliding scale insulin required. Patient is agreeable to weight loss diet 1500 noble daily and continue on Ozempic 4. Gastric reflux: Details from hospital stay: Increase PPI to 40 mg twice a day as tolerated. Patient is reluctant to do this due to risk for C. difficile which she has had before. I think the order of testing should be Lexiscan stress nuclear and if negative then EGD 5. TIA (transient ischemic attack): Details from hospital stay: Historic no new symptoms 6. Dyslipidemia: Details from hospital stay: LDL 62 evidencing good control Reason for Visit Reason for Visit: chest pain Brief History: Haily Sam is a 79 year old female with unusual past history of coronary artery disease that she states started 1993 with an MT in [place]. Patient was having chest pain pulled over the rest stop and called 911 she went to the hospital and consumer relations complaint clerk did angiogram stated that she had beautiful arteries but that her heart was red and inflamed. I suspicious that he meant the patient had pericarditis. Patient states that another time 1995 she had an MT and blood pressure was very high but then they gave her some shot and she crossed over to the other side meaning she . Sounds like her blood pressure dropped and they did CPR. This morning the patient was anticipating her grandson Alvaro arriving and she was cleaning the house doing some vacuuming and mopping. She felt chest pressure thought it was indigestion she laid down and had chest pressure 7/10 took nitroglycerin and it dropped down to 4/10 but then recurred she came to the emergency department and initial EKG and troponins were normal. She was referred to cardiology Dr. Louise and myself for admission. Patient denies nausea or difficulty breathing she states it felt like heavy pressure in her chest like somebody was taking a break into her sternum she currently has no chest pain. Patient smoked for years at age 31s about 1 pack/week she has bronchial asthma and was on oxygen in [place] but has not needed it here in [place]. She denies asthma as a child but states she had it as an adult. Hospital Course Hospital Course Patient was admitted for chest pain reduced by nitroglycerin. Cardiac enzymes were negative blood pressure was elevated and I started losartan 50 mg daily. Patient had epigastric tenderness and recent Mohsen was started on semaglutide 0.5 mg weekly. She had decrease in her weight by 10 pounds in 2 months. Semaglutide is known to worsen GERD and patient has a history of Hernandez's she reports last evaluated by EGD in April but I do not see those reports. She states she had colonoscopy showing a few polyps and scarring on esophagus by EGD Blood pressure was elevated so I started then increased her losartan to 50 mg and continued for discharge. Echo showed normal LVEF but LVH was present without wall motion abnormalities. Dr. Louise recommends outpatient Lexiscan nuclear testing. Patient cannot walk on a treadmill uses a cane Physical Exam Narrative: General well-developed well-nourished obese female in no acute cardiopulmonary stress she is alert oriented pleasant CV regular rate and rhythm Lungs clear to auscultation bilaterally Abdomen positive bowel tones soft she has epigastric tenderness less than yesterday Calves trace to 1 pretibial edema Discharge Data Studies Completed and Pending Completed Studies During Hospitalization Category Date Time Status XR chest 1V portable [id number] Stat Exams 01/10/25 07:36 Completed Pending at discharge Category Date Time Status CV. echo complete* [id number] Routine Ultrasound 01/11/25 16:53 Ordered Radiology Impressions Chest X-Ray 01/10/25 07:36 IMPRESSION: No acute chest abnormality. Laboratory Results WBC 6.05 10^3/uL (3.29-11.43) 01/10/25 07:49 RBC 4.85 10^6/uL (3.85-5.65) 01/10/25 07:49 Hgb 14.50 g/dL (11.27-16.99) 01/10/25 07:49 Hct 45.5 % (36-47) 01/10/25 07:49 MCV 93.8 fl (85-98) 01/10/25 07:49 MCH 29.9 pg (27-33) 01/10/25 07:49 MCHC 31.9 g/dL (30-55) 01/10/25 07:49 RDW 12.8 % (12.1-15.1) 01/10/25 07:49 Plt Count 172 10^3/cmm (157-399) 01/10/25 07:49 MPV 11.0 fL (7.4-10.4) H 01/10/25 07:49 Neut % (Auto) 58.1 % 01/10/25 07:49 Lymph % (Auto) 30.9 % 01/10/25 07:49 [place] % (Auto) 5.5 % 01/10/25 07:49 Eos % (Auto) 4.3 % 01/10/25 07:49 Baso % (Auto) 1.0 % 01/10/25 07:49 Neut # (Auto) 3.52 10^3/uL (1.8-7.7) 01/10/25 07:49 Lymph # (Auto) 1.9 10^3/uL (0.8-4.8) 01/10/25 07:49 [place] # (Auto) 0.3 10^3/uL (0.2-0.9) 01/10/25 07:49 Eos # (Auto) 0.3 10^3/uL (0.0-0.8) 01/10/25 07:49 Baso # (Auto) 0.1 10^3/uL (0.0-0.1) 01/10/25 07:49 Nucleated RBC % (auto) 0 % 01/10/25 07:49 Nucleated RBCs # 0.0 /100WBC 01/10/25 07:49 Sodium 139 mmol/L (136-145) 01/10/25 07:49 Potassium 4.0 mmol/L (3.5-5.1) 01/10/25 07:49 Chloride 99 mmol/L (98-107) 01/10/25 07:49 Carbon Dioxide 27 mmol/L (22-29) 01/10/25 07:49 Anion Gap 17.0 (5-19) 01/10/25 07:49 BUN 15 mg/dL (8-23) 01/10/25 07:49 Creatinine 1.0 mg/dL (0.5-0.9) H 01/10/25 07:49 GFR Calculation Not Reportable 01/10/25 07:49 Glucose 120 mg/dL (65-115) H 01/10/25 07:49 POC Glucose 87 mg/dL (70-110) 01/10/25 17:28 Calculated Osmolality 290 mOsm/kg (285-295) 01/10/25 07:49 Calcium 9.6 mg/dL (8.5-10.5) 01/10/25 07:49 Total Bilirubin 0.4 mg/dL (0.15-1.2) 01/10/25 07:49 AST 25 U/L (0-32) 01/10/25 07:49 ALT 27 U/L (0-33) 01/10/25 07:49 Alkaline Phosphatase 70 U/L (35-105) 01/10/25 07:49 Troponin T Baseline < 6 ng/L (0-10) 01/10/25 07:49 Troponin T 120 Minute < 6.0 ng/L (0-10) 01/10/25 09:58 Delta Troponin T 0 ABS# (0-10) 01/10/25 09:58 Troponin T Hi Sens 6Hr < 6.0 ng/L (0-10) 01/10/25 14:54 Troponin T Hi Sens 6Hr Delta 0 ng/L (0-12) 01/10/25 14:54 Total Protein 6.6 g/dL (6.6-8.7) 01/10/25 07:49 Albumin 3.9 g/dL (3.5-5.2) 01/10/25 07:49 Globulin 2.7 g/dL (1.3-4.6) 01/10/25 07:49 Triglycerides 128 mg/dL (0-150) 01/11/25 03:19 Cholesterol 152 mg/dL (0-200) 01/11/25 03:19 LDL Cholesterol, Calc 62 mg/dL (50-129) 01/11/25 03:19 HDL Cholesterol 64 mg/dL (60-100) 01/11/25 03:19 LDL/HDL Ratio 0.97 RATIO (0.00-3.22) 01/11/25 03:19 Cholesterol/HDL Ratio 2.38 mg/dL (0.0-4.40) 01/11/25 03:19 Vitals Last Vital Signs Temp 97.7 F 01/11/25 07:13 Pulse 95 01/11/25 07:13 Resp 19 H 01/11/25 07:13 BP 141/74 01/11/25 07:13 Pulse Ox 96 01/11/25 07:13 O2 Del Method Room Air 01/11/25 07:13 Discharge Plan Discharge Patient Disposition: Home Condition: Stable Prescriptions: New losartan 50 mg Tablet 50 mg PO DAILY Qty: 30 0RF docusate sodium 100 mg Capsule 100 mg PO BID Qty: 60 0RF lactulose 10 gram/15 mL Solution 10 g PO DAILY PRN (Reason: Constipation (see protocol)) Qty: 300 0RF Continued (DME) diabetic shoes 1 pair to fit See Rx Instructions .Route .MEDSUPPLY Qty: 1 0RF Rx Instructions: As directed ascorbic acid (vitamin C) 1,000 mg tablet 1 g PO BID Qty: 60 0RF calcium carbonate-vitamin D3 [Os-Noble 500 + D3] 500 mg-15 mcg (600 unit) tablet 1 tab PO .2 times day Qty: 180 0RF Ozempic 0.25 mg or 0.5 mg (2 mg/3 mL) pen injector 0.5 mg SUBCUT .weekly Qty: 9 1RF albuterol sulfate 90 mcg/actuation HFA aerosol inhaler 2 puff inhalation Q6H PRN (Reason: shortness of breath or wheezing) Qty: 25.5 5RF atorvastatin 10 mg tablet 10 mg PO DAILY Qty: 90 1RF epinephrine [EpiPen 2-Vidal] 0.3 mg/0.3 mL auto-injector 0.3 mg IM Q10M PRN (Reason: anaphylaxis) Qty: 2 0RF Rx Instructions: for 2 doses ibandronate 150 mg tablet 150 mg PO .monthly Qty: 3 1RF magnesium oxide 400 mg magnesium tablet 800 mg PO .at bedtime Qty: 180 1RF methenamine hippurate 1 gram tablet 1 g PO BID Qty: 180 1RF Rx Instructions: take with vitamin C 2 times day nitroglycerin [Nitrostat] 0.4 mg tablet, sublingual 0.4 mg SUBLINGUAL Q5M PRN (Reason: chest pain) 30 Days Qty: 25 6RF Rx Instructions: until response; do not exceed 3 doses per episode sucralfate [Carafate] 1 gram tablet 1 g PO TID 90 Days Qty: 270 1RF cholecalciferol (vitamin D3) 125 mcg (5,000 unit) capsule 125 mcg PO DAILY Qty: 30 2RF verapamil 180 mg tablet extended release 180 mg PO DAILY Qty: 90 3RF PNV cmb#95-ferrous fumarate-FA [ Multivitamins] 28 mg iron- 800 mcg Tablet 1 tab PO DAILY Miller Milk of Magnesia 400 mg/5 mL suspension 15 ml PO BEDTIME PRN (Reason: Constipation) Changed pantoprazole 40 mg tablet,delayed release (DR/EC) 40 mg PO BIDWM 90 Days Qty: 90 1RF Sales Store Checker OK for DC: Cardiology Discharge Order = DC NOW: Discharge Order (Routine); Ordered 01/11/25 Ordered By: Vipul Gaxiola Other Ambulatory Orders: Sestamibi Stress Test Request (Routine) Timeframe: 1 Week Facility: [facility] - Location: Cardiac Diagnostic Laboratory Ordered By: Vipul Gaxiola Referrals: Samir Kaufman, [facility] [Primary Care Provider, Family Practice] Discharge Activity: Increase activity as tolerated and Limit activity as instructed Patient Instructions: GERD (Gastroesophageal Reflux Disease) (GEN), Esophageal Spasm (GEN), Opioid Safety, Patient Portal & Maya Instructions Activity Restrictions/Additional Instructions: Follow-up for outpatient Lexiscan nuclear stress test If that shows abnormality you should address that with the consumer relations complaint clerk Dr. Louise If Lexiscan nuclear is negative proceed with follow-up with general surgery for EGD follow-up of Hernandez's esophagus and possible worsened reflux disease causing your pain. Semaglutide can cause reflux to worsen Follow a 1500-calorie diabetic weight loss diet to lose a goal of 2 pounds per week. Weigh daily and count your calories. Avoid heavy exertion pending your Lexiscan stress nuclear test Discharge Attestations Time Spent in Discharge Care*: greater than 30 min Time Spent in Smoking Cessation: Patient is a non-smoker Quality Metrics Clinical Quality Measures [ No reported AMI, CVA or VTE this stay] Coding Level of Care Code 20836 Diagnoses Unstable angina pectoris I20.0 Essential hypertension I10 Controlled type 2 diabetes mellitus with hyperglycemia, without long-term current use of insulin E11.65 Gastric reflux K21.9 TIA (transient ischemic attack) G45.9 Dyslipidemia E78.5 Time Spent (min) 40
--- NOTE | 2025-01-11 08:51 | P.PN_ITS ---
Subjective 2 Subjective: The patient is feeling okay. She has not had any recurrence of chest pain. The vitals are stable. No unusual shortness of breath. She is ambulating on telemetry without any problems. She had echocardiogram today. She was found to have no wall motion abnormalities. Medications: Medication Review Details: Current Medications Acetaminophen (Acetaminophen 325 Mg Tablet) 650 mg PO Q6H PRN PRN Reason: Mild/Mod Pain Or Temp >/= 101 Albuterol Sulfate (Albuterol 2.5 Mg/3 Ml Neb) 2.5 mg INHALATION QID.RESPIRATORY PRN PRN Reason: shortness of breath or wheezing Atorvastatin Calcium (Atorvastatin 10 Mg Tablet) 10 mg PO BEDTIME ALVAREZ Docusate Sodium (Docusate Sodium 100 Mg Capsule) 100 mg PO BID [facility] Last Admin: 01/11/25 08:19 Dose: 100 mg Enoxaparin Sodium (Enoxaparin 40 Mg/0.4 Ml Syringe) 40 mg SUBCUT Q24H ALVAREZ Last Admin: 01/10/25 17:32 Dose: 40 mg Glucagon (Glucagon 1 Mg/Ml Kit 1 Ml) 1 mg IM ONCE PRN; Protocol PRN Reason: Adult Acute Hypoglycemia Nursing Prot. Sodium Chloride (Sodium Chloride 0.9%) 1,000 mls @ 100 mls/hr IV .Q10H ALVAREZ Last Admin: 01/10/25 22:51 Dose: 100 mls/hr Dextrose (D5w) 500 mls @ 0 mls/hr IV ONCE PRN; Protocol PRN Reason: Adult Acute Hypoglycemia Prot Dextrose (D10w) 125 mls @ 750 mls/hr IV PRN PRN; Protocol PRN Reason: Adult Acute Hypoglycemia Nursing Protocol Dextrose (D10w) 250 mls @ 1,000 mls/hr IV PRN PRN; Protocol PRN Reason: Adult Acute Hypoglycemia Nursing Protocol Insulin Human Lispro (Insulin Lispro 100 Unit/1 Ml) 0 unit SUBCUT WM&BEDTIME ALVAREZ; Protocol Last Admin: 01/11/25 07:44 Dose: Not Given Lactulose (Lactulose Oral Liq 20 Gm/30 Ml Udc) 10 gm PO DAILY PRN; Protocol PRN Reason: Constipation (see protocol) Losartan Potassium (Losartan 50 Mg Tablet) 25 mg PO DAILY ALVAREZ Last Admin: 01/11/25 08:20 Dose: 25 mg Magnesium Hydroxide (Magnesium Hydroxide 30 Ml Udc) 15 ml PO BEDTIME PRN PRN Reason: CONSTIPATION Magnesium Oxide (Magnesium Oxide 400 Mg Tablet) 800 mg PO BEDTIME [facility] Last Admin: 01/10/25 21:02 Dose: 800 mg Morphine Sulfate (Morphine 4 Mg/Ml Sdv 1 Ml) 4 mg IVP Q4H PRN PRN Reason: SEVERE PAIN Ondansetron HCl (Ondansetron 2 Mg/Ml Sdv 2 Ml) 4 mg IVP Q6H PRN PRN Reason: NAUSEA AND VOMITING Ondansetron HCl (Ondansetron 2 Mg/Ml Sdv 2 Ml) 4 mg IVP Q8H PRN PRN Reason: vomiting, or N/V if npo Pantoprazole Sodium (Pantoprazole Dr 40 Mg Tablet) 40 mg PO DAILY [facility] Last Admin: 01/11/25 08:19 Dose: 40 mg Sucralfate (Sucralfate 1 Gm Tablet) 1 gm PO TID [facility] Last Admin: 01/11/25 08:19 Dose: 1 gm Verapamil HCl (Verapamil Er 180 Mg Tablet) 180 mg PO DAILY [facility] Last Admin: 01/11/25 08:19 Dose: 180 mg Vitamin D (Cholecalciferol (Vitamin D3) 5,000 Unit Tablet) 125 unit PO DAILY [facility] Last Admin: 01/11/25 08:21 Dose: 125 unit Vitals/I&O/Wt Last Vital Signs Temp 97.7 F 01/11/25 07:13 Pulse 95 01/11/25 07:13 Resp 19 H 01/11/25 07:13 BP 141/74 01/11/25 07:13 Pulse Ox 96 01/11/25 07:13 O2 Del Method Room Air 01/11/25 07:13 01/10/25 01/11/25 01/11/25 22:59 06:59 14:59 Intake Total 1235 / 1235 240 / 1475 Balance 1235 / 1235 240 / 1475 Weight last 48 hrs Weight 222 lb 5 oz Weight 221 lb 3.2 oz Weight 212 lb Physical Exam 2 Narrative: GENERAL: The patient is alert and oriented times three. Not in any acute distress. HEENT: No significant pallor, icterus or lymphadenopathy.Oral cavity: There are no mucous membrane lesions. NECK: Trachea appears to be central. No masses noted. No JVD or thyromegaly appreciated. RESPIRATORY: Chest is symmetrical. No intercostals muscle retraction or any accessory muscle activation. There is no chest wall tenderness. Breath sounds are heard bilaterally. No rales or rhonchi heard. No evidence of any consolidation. BREASTS: Deferred. HEART: The heart sounds are normal. No S3 or S4. No significant murmurs. No pericardial rub ABDOMEN: No vessel pulsations or distention. No tenderness. No organomegaly appreciated. Bowel sounds are normally heard. : Deferred. RECTAL: Deferred. LYMPHATIC: No lymphadenopathy noted in the neck. EXTREMITIES: No edema or cyanosis. No clubbing. MUSCULOSKELETAL: No acute joint deformities or swelling SKIN: There are no significant rashes or ecchymosis NEUROPSYCHIATRIC: The patient is alert and oriented x3. Appears to be in a good mood. No tremors or rigidity noted. Data 01/10/25 07:49 01/10/25 07:49 Other Labs: Laboratory Last Values WBC 6.05 10^3/uL (3.29-11.43) 01/10/25 07:49 RBC 4.85 10^6/uL (3.85-5.65) 01/10/25 07:49 Hgb 14.50 g/dL (11.27-16.99) 01/10/25 07:49 Hct 45.5 % (36-47) 01/10/25 07:49 MCV 93.8 fl (85-98) 01/10/25 07:49 MCH 29.9 pg (27-33) 01/10/25 07:49 MCHC 31.9 g/dL (30-55) 01/10/25 07:49 RDW 12.8 % (12.1-15.1) 01/10/25 07:49 Plt Count 172 10^3/cmm (157-399) 01/10/25 07:49 MPV 11.0 fL (7.4-10.4) H 01/10/25 07:49 Neut % (Auto) 58.1 % 01/10/25 07:49 Lymph % (Auto) 30.9 % 01/10/25 07:49 Coffee % (Auto) 5.5 % 01/10/25 07:49 Eos % (Auto) 4.3 % 01/10/25 07:49 Baso % (Auto) 1.0 % 01/10/25 07:49 Neut # (Auto) 3.52 10^3/uL (1.8-7.7) 01/10/25 07:49 Lymph # (Auto) 1.9 10^3/uL (0.8-4.8) 01/10/25 07:49 Coffee # (Auto) 0.3 10^3/uL (0.2-0.9) 01/10/25 07:49 Eos # (Auto) 0.3 10^3/uL (0.0-0.8) 01/10/25 07:49 Baso # (Auto) 0.1 10^3/uL (0.0-0.1) 01/10/25 07:49 Nucleated RBC % (auto) 0 % 01/10/25 07:49 Nucleated RBCs # 0.0 /100WBC 01/10/25 07:49 Sodium 139 mmol/L (136-145) 01/10/25 07:49 Potassium 4.0 mmol/L (3.5-5.1) 01/10/25 07:49 Chloride 99 mmol/L (98-107) 01/10/25 07:49 Carbon Dioxide 27 mmol/L (22-29) 01/10/25 07:49 Anion Gap 17.0 (5-19) 01/10/25 07:49 BUN 15 mg/dL (8-23) 01/10/25 07:49 Creatinine 1.0 mg/dL (0.5-0.9) H 01/10/25 07:49 GFR Calculation Not Reportable 01/10/25 07:49 Glucose 120 mg/dL (65-115) H 01/10/25 07:49 POC Glucose 87 mg/dL (70-110) 01/10/25 17:28 Calculated Osmolality 290 mOsm/kg (285-295) 01/10/25 07:49 Calcium 9.6 mg/dL (8.5-10.5) 01/10/25 07:49 Total Bilirubin 0.4 mg/dL (0.15-1.2) 01/10/25 07:49 AST 25 U/L (0-32) 01/10/25 07:49 ALT 27 U/L (0-33) 01/10/25 07:49 Alkaline Phosphatase 70 U/L (35-105) 01/10/25 07:49 Troponin T Baseline < 6 ng/L (0-10) 01/10/25 07:49 Troponin T 120 Minute < 6.0 ng/L (0-10) 01/10/25 09:58 Delta Troponin T 0 ABS# (0-10) 01/10/25 09:58 Troponin T Hi Sens 6Hr < 6.0 ng/L (0-10) 01/10/25 14:54 Troponin T Hi Sens 6Hr Delta 0 ng/L (0-12) 01/10/25 14:54 Total Protein 6.6 g/dL (6.6-8.7) 01/10/25 07:49 Albumin 3.9 g/dL (3.5-5.2) 01/10/25 07:49 Globulin 2.7 g/dL (1.3-4.6) 01/10/25 07:49 Triglycerides 128 mg/dL (0-150) 01/11/25 03:19 Cholesterol 152 mg/dL (0-200) 01/11/25 03:19 LDL Cholesterol, Calc 62 mg/dL (50-129) 01/11/25 03:19 HDL Cholesterol 64 mg/dL (60-100) 01/11/25 03:19 LDL/HDL Ratio 0.97 RATIO (0.00-3.22) 01/11/25 03:19 Cholesterol/HDL Ratio 2.38 mg/dL (0.0-4.40) 01/11/25 03:19 Other data: Echocardiogram from today Moderate left ventricular hypertrophy. Grade I/IV diastolic dysfunction (abnormal relaxation filling pattern), normal to mildly elevated filling pressures. Echolucent area anteriorly. Mild mitral annular calcification. Mild mitral valve regurgitation. Trace to mild tricuspid valve regurgitation. Estimated pulmonary artery peak systolic pressure 43 mmHg. There is no pericardial effusion. There are no intracardiac masses. Echolucent area, anteriorly, may suggest a pericardial fat pad. Compared to the study from 12/23/2018, there may not be a significant change A&P Assessment and plan 1. Unstable angina pectoris: It is not convincing to me that her chest pain is cardiac. The EKG and the echocardiogram are unremarkable. No evidence of medical injury. However because of her risk factors, coronary artery disease is still a consideration. However the patient is remaining stable with no recurrence of chest pain. 2. Essential hypertension: The blood pressure seems to be getting under control. 3. Tachycardia: She has not had any tachycardic episodes recently. Will continue on the current medications. She has been on verapamil for a long time. This may be continued. 4. Controlled diabetes mellitus with hyperglycemia, without long-term current use of insulin: The blood sugar need to be closely monitored. 5. Gastric reflux: May continue on the Protonix. The patient may need more workup on this. 6. TIA (transient ischemic attack): No history for any recent CVA. 7. Dyslipidemia: Continue on the current management Plan: Since the patient remained stable with no new symptoms, it may be appropriate to discharge her home and to have a stress test as an outpatient. Because of her obesity and difficulty in ambulation, a Lexiscan/sestamibi/sestamibi stress test would be appropriate She may be discharged home on the current medications. Discussed with Dr. Gaxiola PDMP PDMP Reviewed: Not Reviewed Attestations 2 Medical Necessity Statement*: Disposition as per Dr. Gaxiola Coding Level of Care Code 38162 Diagnoses Unstable angina pectoris I20.0 Essential hypertension I10 Tachycardia R00.0 Controlled diabetes mellitus with hyperglycemia, without long-term current use of insulin E11.65 Gastric reflux K21.9 TIA (transient ischemic attack) G45.9 Dyslipidemia E78.5
[2025-01-11 08:53] VITALS: PULSE 76; RESP 18; O2SAT 97
[2025-01-11 12:00] VITALS: BP 171/89; PULSE 110; RESP 19; TEMP 36.6; O2SAT 93
--- NOTE | 2025-01-11 16:53 | USCV_ITS ---
Flaco Haily Age: 79 Gender: F : 1945 Exam Date: 01/11/2025 11:01 Ordering Phys: Candis Louise MD ([email or web address]) Technologist: Max Sheehan Exam Location: [facility] [place] Indication: chest pain BP: 141 / 74 HR: 88 Rhythm: Sinus Technical Quality: Adequate MEASUREMENTS (Male / Female) Normal Values 2D ECHO LV Diastolic Diameter PLAX 2.9 cm 4.2 - 5.9 / 3.9 - 5.3 cm IVS Diastolic Thickness 1.5 cm 0.6 - 1.0 / 0.6 - 0.9 cm IVS Systolic Thickness 1.4 cm LVPW Diastolic Thickness 2.3 cm 0.6 - 1.0 / 0.6 - 0.9 cm LVPW Systolic Thickness 2.7 cm LVOT Diameter 2.0 cm LV Ejection Fraction 2D Teich 57.1 % LV Ejection Fraction MOD 4C 67.9 % LV Ejection Fraction MOD 2C 54.8 % LV Ejection Fraction 2C AL 56.9 % LA Diameter 3.5 cm RA Systolic Volume 4C AL 53.4 ml RA Systolic Volume 4C MOD 53.1 ml LA Sys Volume AL 44.3 cm cubed LA Sys Volume Index AL 20.3 cm cubed/m squared Aorta at Sinotubular Diameter 2.3 cm IVC Diameter 1.7 cm M-MODE LA Ao Ratio MM 1.3 AV Cusp Separation MM 1.1 cm DOPPLER AV Peak Velocity 109.0 cm/s LVOT Peak Velocity 81.0 cm/s AV Area Cont Eq vti 2.2 cm squared AV Area Cont Eq pk 2.4 cm squared MV Peak Velocity 169.0 cm/s MV Area PHT 8.1 cm squared Mitral E to A Ratio 0.6 TR Peak Velocity 317.0 cm/s TR Peak Gradient 40.2 mmHg TR Mean Velocity 236.0 cm/s TR Mean Gradient 24.9 mmHg TR Velocity Time Integral 100.8 cm PV Peak Velocity 101.7 cm/s RV Ejection Time 0.3 s FINDINGS Left Ventricle Normal left ventricular size and systolic function, EF 57%.no regional wall motion abnormalities. Mild to moderate left ventricular hypertrophy. Grade I/IV diastolic dysfunction (abnormal relaxation filling pattern), normal to mildly elevated filling pressures. Echolucent area anteriorly Right Ventricle Normal right ventricular size and systolic function. Right Atrium The right atrium is normal in size. Left Atrium The left atrium is normal in size. Mitral Valve Mild mitral annular calcification. Mild mitral valve regurgitation. Aortic Valve No gross abnormalities noted Tricuspid Valve Trace to mild tricuspid valve regurgitation. Estimated pulmonary artery peak systolic pressure 43 mmHg Pulmonic Valve Pulmonic valve not well visualized. Pericardium Normal pericardium without effusion. Aorta Normal aortic annulus size. IVC The inferior vena cava appears normal. CONCLUSIONS Normal left ventricular size and systolic function, EF 57%.no regional wall motion abnormalities. Mild to moderate left ventricular hypertrophy. Grade I/IV diastolic dysfunction (abnormal relaxation filling pattern), normal to mildly elevated filling pressures. Echolucent area anteriorly. Mild mitral annular calcification. Mild mitral valve regurgitation. Trace to mild tricuspid valve regurgitation. Estimated pulmonary artery peak systolic pressure 43 mmHg. There is no pericardial effusion. There are no intracardiac masses. Echolucent area, anteriorly, may suggest a pericardial fat pad. Compared to the study from 12/23/2018, there may not be a significant change. Revised copy 01/11/2025 Dr Candis Louise MD [facility] (Electronically Signed) Final Date: 11 January 2025 12:04 Amended: 11 January 2025 21:39 C
--- OUTSIDE RECORDS SUMMARY | 2025-01-14 05:56 | XMS_ITS | Clinical Summary ---
Author Organization [facility] [place] Address [address] [place] [address] Phone Care Team Providers Care Cost Accounting Clerk Name Role Phone Morteza Valles Primary Care Provider [phone] Medications NIFEdipine (ADALAT CC) 60 mg Extended [...] 2025 Insurance MEDICARE PART A AND B [facility] Care Teams Cost Accounting Clerk Relationship Specialty Start Date End Date Morteza Valles DO [address] [place] [address] PCP - General Specialist 02/03/17
--- OUTSIDE RECORDS SUMMARY | 2025-01-14 05:56 | XMS_ITS | Clinical Summary ---
Author Organization [facility] Address [address] [facility] Attn: Epic Prelude ADT [place] [address] Care Team Providers Care Kettle Room Helper Name Role Phone Morteza Valles DO Primary Care Provider [phone] Allergies Active Allergy Reactions Criticality Noted Date Comments Alpha-Gal (Migfrrvgo-Bdlxg-1,3-Galactos e) Hives High 06/29/2023 Pt can't eat [...] Abstract 12/30/2024 10:00 AM CDT Video Visit [facility] G[facility]- [address] [place] [address] Cynthia Penny PA-C Allergy to [...] on file 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 Gender Identity Not on file Sexual Orientation Not on file Last Filed Vital Signs Vital Sign Reading Time Taken Comments Blood Pressure 128/82 05/13/2024 1:04 PM SOA INTEGRATION DEVELOPER Pulse 78 05/13/2024 1:04 PM SOA INTEGRATION DEVELOPER Temperature 36.6 C (97.8 F) 08/05/2023 12:51 PM SOA INTEGRATION DEVELOPER Respiratory Rate 14 05/13/2024 1:04 PM SOA INTEGRATION DEVELOPER Oxygen Saturation 91% 05/13/2024 1:04 PM SOA INTEGRATION DEVELOPER Inhaled Oxygen Concentration - - Weight 97.5 [...] history exists Medical Devices Implanted Type Area Automation Lead Device Identifier Shelf Expiration Date Model / Serial / Lot Clip Endo Resolution 360 235cm [id number] - [id number] Implanted:Qty: 4 on 10/20/2023 by Arun Webster MD at [facility] [employer] [id number] / / Description:3 at 80 cm 1 at 4 Procedures Procedure Name Priority Date/Time Associated Diagnosis Comments COLONOSCOPY REPORT 05/13/2024 12 :51 PM SOA INTEGRATION DEVELOPER from Last 3 Months or Most Recently Relevant to Health Maintenance Results * COLONOSCOPY REPORT (05/13/2024 12:51 PM SOA INTEGRATION DEVELOPER) Narrative Procedure Note Arun Webster MD - 05/13/2024 12:50 PM CST [facility] GI Patient Name: Haily Sam Procedure Date: 05/13/2024 Date of : 1945 Admit Type: Outpatient Age: 78 Attending MD: Arun Webster MD, Procedure: Colonoscopy Indications: Hx of polyps Providers: Arun Webster MD Referring MD: Arun Webster MD Medicines: Fentanyl 125 micrograms IV, Midazolam 6 mg IV Complications: No immediate complications. Estimated blood loss: Minimal. Procedure: Pre-Anesthesia Assessment: - [place] Protocol: - Pre-procedure Verification: Prior to the [...] by the physician, the nurse and the precision lens technician in the endoscopy suite. - Prior [...] Scope Out: 12:47:08 PM [address] [place], [place] Arun Webster MD GI PROCEDURE ORDERABLES Migdalia l Result from Last 3 Months or Most Recently Relevant to Health Maintenance Insurance MEDICARE PART A AND B [employer] MEDICARE PART A AND B Advance Directives For more information, please contact: [phone] * Full Code (Latest Code Status on File) Date Activated Date Inactivated Comments 05/13/2024 11:43 AM 05/13/2024 3:21 PM * Full Code Date Activated Date Inactivated Comments 10/20/2023 10:19 AM 10/20/2023 2:28 PM Care Teams Kettle Room Helper Relationship Specialty Start Date End Date Morteza Valles DO [address] [place] [address] PCP - General Specialist 02/03/17
--- OUTSIDE RECORDS SUMMARY | 2025-01-14 05:56 | XMS_ITS | Encounter Summary ---
Author Organization [facility] Address 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
== END 2025-01-11 14:54 | disposition home or self-care (01) ==
LOC: ER 08:37 → CSU 12:24
PROVIDERS: Admitting Provider Internal Medicine; Emergency Provider Family Medicine; PCP Nurse Practitioner; Visit Provider Internal Medicine
DX: I25.110 Atherosclerotic heart disease of native coronary artery with unstable angina pectoris (principal); I10 Essential (primary) hypertension; E11.65 Type 2 diabetes mellitus with hyperglycemia; K21.9 Gastro-esophageal reflux disease without esophagitis; G45.9 Transient cerebral ischemic attack, unspecified; E78.5 Hyperlipidemia, unspecified; Z91.014 Allergy to mammalian meats; J45.909 Unspecified asthma, uncomplicated; R00.0 Tachycardia, unspecified; I25.2 Old myocardial infarction
CPT/HCPCS: 36415; 36416; 71045; 80053; 80061; 82962; 84484; 85025; 93005; 93306; 96372; 99285; G0378; J1650; J7030; J9999

== ENCOUNTER → 2025-01-16 10:46 | Outpatient (BNVA) | payer MEDICARE, OTHER, SELFPAY | PROVIDERS: PCP Nurse Practitioner; Visit Provider Nurse Practitioner Family | DX: L82.1 Other seborrheic keratosis (principal); L81.3 Cafe au lait spots; S20.461A Insect bite (nonvenomous) of right back wall of thorax, initial encounter; S20.462A Insect bite (nonvenomous) of left back wall of thorax, initial encounter; X58.XXXA Exposure to other specified factors, initial encounter; D48.5 Neoplasm of uncertain behavior of skin; L57.0 Actinic keratosis | CPT/HCPCS: 10120; 11102; 17000; 99213 ==

== ENCOUNTER → 2025-02-12 08:18 | Outpatient (BNVA) | payer MEDICARE, OTHER, SELFPAY | PROVIDERS: PCP Nurse Practitioner; Visit Provider Nurse Practitioner | DX: E11.9 Type 2 diabetes mellitus without complications (principal) | CPT/HCPCS: 81000; 83036 ==

== ENCOUNTER 2025-03-12 08:05 | Outpatient (CLI) | payer MEDICARE, OTHER, SELFPAY ==
[2025-03-12 08:30] VITALS: BMI 37.5
--- NOTE | 2025-03-12 08:30 | ECG_ITS ---
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 The perfusion scan will be documented separately. DATA: Baseline heart rate was 73 beats per minute. Baseline blood pressure was 134/88 millimeters of mercury. Target heart rate was 142 maximum heart rate achieved was 97. which was 68% of the predicted target heart rate. Maximum blood pressure was 160/96 millimeters of mercury. The reason for ending the test was completion of the protocol The patient did not experience any symptoms. ELECTROCARDIOGRAM: BASELINE: Sinus rhythm. Normal axis. Right bundle branch block EXERCISE: After Lexiscan injection, no ST-T changes suggestive of ischemic noted. No arrhythmia noted. [] CONCLUSION: Please note due to baseline abnormality of the EKG specificity and sensitivity of the EKG portion of LexiScan MIBI stress test will be low 1. EKG not suggestive of ischemia 2. Lexiscan injection unremarkable 3. Perfusion scan will be documented separately. Electronically Signed On 03-12-2025 11:59:42 CDT by XOCHILT VALLES [email or web address]
--- NOTE | 2025-03-12 08:31 | NMCV_ITS ---
NM curtis perf SPECT r/s* [id number] Haily Sam Age: 79 Gender: F : 1945 Exam Date: 03/12/2025 09:07 Ordering Phys: Vipul Gaxiola MD Technologist: CNYTHIA Contreras Exam Location: [facility] Indications: CP STRESS TEST Please see separate stress test report in [facility] for full findings IMAGE PROTOCOL Rest/Stress 1 Lexiscan Day Radiopharmaceutical Dose (mCi) Administration Site Administered by Rest: Tc-99m 10.5 IV CYNTHIA Gonzalez Sestamibi Stress:Tc-99m 33.0 IV CYNTHIA Contreras Sestamifrank Rest: 12-Mar-2025 60 Discovery 630 Stress: 12-Mar-2025 30 Discovery 630 0.4mg Lexiscan. Supine position only as patient was unable to lay prone. SPECT RESULTS Technical Quality: Good Raw Data Analysis: Breast attenuation Image Corrections: No attenuation or motion correction applied Summed Stress Score: 3 Summed Rest Score: 3 Summed Difference Score: 0 PERFUSION FINDINGS A small area of minimal to moderately decrease tracer uptake involving the apical lateral and LV apex. Some reversibility is noted in this area. FUNCTIONAL RESULTS (calculated via Gated SPECT) Stress Image LV EF (%): 80 Stress EDV (mL):61 TID: 1.07 Stress ESV (mL):12 FUNCTIONAL FINDINGS: Segmental wall motion analysis revealing no gross wall motion abnormalities IMPRESSIONS 1. Myocardial perfusion imaging revealing a small area of minimal to moderate decrease tracer uptake involving the apical lateral and LV apex with some reversibility suggesting myocardial scarring with ischemia in the distribution of the distal circumflex artery. The reliability of the study is questionable in view of the inconsistency with the polar plot 2. Normal LV ejection fraction of 80%. 3. LV wall motion analysis revealing no gross wall motion abnormalities. 4. Normal LV volume Clinical correlation is recommended Dr Candis Louise MD [facility] (Electronically Signed) Final Date: 12 March 2025 12:11 S
[2025-03-12] MEDS: aminophylline 25 mg/mL SDV 20 mL IVP (10:13)
[2025-03-12 10:16] VITALS: BP 110/90; PULSE 77
== END 2025-03-12 08:06 | disposition home or self-care (01) ==
LOC: CDL 08:07
PROVIDERS: PCP Nurse Practitioner; Visit Provider Internal Medicine
DX: R07.9 Chest pain, unspecified (principal); R93.1 Abnormal findings on diagnostic imaging of heart and coronary circulation
CPT/HCPCS: 36415; 78452; 93017; 96374; 96375; A9500; J0280; J2785

== ENCOUNTER → 2025-03-25 13:31 | Outpatient (BNVA) | payer MEDICARE, OTHER, SELFPAY | PROVIDERS: PCP Nurse Practitioner; Visit Provider Internal Medicine | DX: R07.9 Chest pain, unspecified (principal); I10 Essential (primary) hypertension; R00.0 Tachycardia, unspecified; K21.9 Gastro-esophageal reflux disease without esophagitis; K22.70 Barrett's esophagus without dysplasia; E11.65 Type 2 diabetes mellitus with hyperglycemia; Z86.73 Personal history of transient ischemic attack (TIA), and cerebral infarction without residual deficits; Z79.01 Long term (current) use of anticoagulants | CPT/HCPCS: 99213 ==

== ENCOUNTER → 2025-05-06 09:02 | Outpatient (BNVA) | payer MEDICARE, OTHER, SELFPAY | PROVIDERS: PCP Nurse Practitioner; Visit Provider Nurse Practitioner | DX: E11.65 Type 2 diabetes mellitus with hyperglycemia (principal); E55.9 Vitamin D deficiency, unspecified | CPT/HCPCS: 80053; 80061; 81000; 82043; 82306; 82607; 83036; 84443 ==

== ENCOUNTER → 2025-06-16 13:14 | Outpatient (BNVA) | payer MEDICARE, OTHER, SELFPAY | PROVIDERS: PCP Nurse Practitioner; Visit Provider Clinical Nurse Specialist Adult Health | DX: R30.0 Dysuria (principal) | CPT/HCPCS: 81000 ==